=== PATIENT | female | born 1950 | race Caucasian/White ===

== ENCOUNTER → 2016-04-28 | Outpatient (CLI) | payer MEDICARE, BC ==
--- NOTE | 2016-04-28 14:27 | MM ---
Reason for exam: follow-up at short interval from prior study. Last mammogram was performed 8 months ago. History: Patient is postmenopausal and had first child at age 32. Family history of breast cancer in aunt. Reductions of both breasts, 2011. Stereotactic core biopsy of the right breast, March 05, 2001. Took hormonal contraceptives for 1 year. Physical Findings: Nurse did not find any significant physical abnormalities on exam. MG 3D Diag Mammo W/Cad RT CC and MLO view(s) were taken of the right breast. Prior study comparison: September 10, 2015, bilateral MG 3d screening mammo w/cad. June 29, 2011, bilateral digital screening mammo w/CAD. June 10, 2009, bilateral digital screening mammogram. There are scattered fibroglandular densities. Post mammoplasty changes. Some areas of non calcified oil cyst formation are demonstrated with course calcifications probably relating to fat necrosis, unchanged. Additional follow up recommended. These results were verbally communicated with the patient and result sheet given to the patient on 04/28/16. ASSESSMENT: Probably benign, BI-RAD 3 RECOMMENDATION: Follow-up diagnostic mammogram of both breasts in 6 months. Back on schedule.
== END | disposition home or self-care (01) ==
LOC: RADMAMWWP 13:40
PROVIDERS: ATTEND Obstetrics & Gynecology
DX: R92.8 Other abnormal and inconclusive findings on diagnostic imaging of breast (principal)
CPT/HCPCS: G0206; G0279

== ENCOUNTER → 2019-12-09 | Outpatient (CLI) | payer MEDICARE ==
--- NOTE | 2019-12-09 14:58 | BD ---
EXAMINATION TYPE: Axial Bone Density DATE OF EXAM: 12/09/2019 COMPARISON: DEXA bone scan 2015 CLINICAL HISTORY: Postmenopausal female Height: 5 FT 2 IN Weight: 143 FRAX RISK QUESTIONS: Alcohol (3 or more units per day): NO Family History (Parent hip fracture): NO Glucocorticoids (More than 3mos): NO (Ex: prednisone, prednisolone, methylprednisolone, dexamethasone, and hydrocortisone). History of Fracture in Adulthood: YES Secondary Osteoporosis: 1. Type 1 Diabetes: NO 2. Hyperthyroidism: NO 3. Menopause before 45: NO 4. Malnutrition: NO 5. Chronic liver disease: NO Rheumatoid Arthritis: YES Current Tobacco Use: NO RISK FACTORS HISTORY OF: History of Wrist Fracture: ANIL WRISTS When: UNSURE WHEN Surgery to Spine/Hip(right/left)/Wrist (right/left): LEFT WRIST When: UNSURE WHEN Family History of Osteoporosis: NO Active: NO Postmenopausal woman: AGE 49 MEDICATIONS Additional Medications: NONE Additional History: EXAM MEASUREMENTS: Bone mineral densitometry was performed using the [employer]. Bone mineral density as measured about the Lumbar spine is: ----- L1-L4(G/cm2): 1.027 T Score Values are as follows: ----- L2: -1.4 ----- L3: -0.8 ----- L4: -1.5 ----- L1-L4: -1.3 Bone mineral density has: DECREASED -3.3 % since study of: 2015 Bone mineral density about the R hip (g/cm2): 0.636 Bone mineral density about the L hip (g/cm2): 0.638 T Score values are as follows: -----R Neck: -2.9 -----L Neck: -2.9 -----R Total: -3.1 -----L Total: -2.7 Bone mineral density has: DECREASED -6.1 % since study of: 2015 IMPRESSION: Osteoporosis (T Score less than -2.5) remains present in both hips. There remains increased fracture risk and therapy is usually indicated based on age. Re-Screen 1-2 years. NOTE: T-SCORE=SD OF THE YOUNG ADULT MEAN.
--- NOTE | 2019-12-11 11:11 | MM ---
Reason for exam: screening (asymptomatic). Last mammogram was performed 3 years and 7 months ago. History: Patient is postmenopausal and had first child at age 32. Family history of breast cancer in aunt. Reductions of both breasts, 2011. Stereotactic core biopsy of the right breast, March 05, 2001. Took hormonal contraceptives for 1 year. Physical Findings: A clinical breast exam by your physician is recommended on an annual basis and results should be correlated with mammographic findings. MG 3D Screening Mammo W/Cad Bilateral CC and MLO view(s) were taken. Prior study comparison: April 28, 2016, right breast MG 3d diag mammo w/cad RT. September 10, 2015, bilateral MG 3d screening mammo w/cad. There are scattered fibroglandular densities. There is chronic nodularity in the right breast at 12 o'clock. Stable medial bilateral oil cysts. 12 o'clock grouped calcifications are unchanged. No significant changes when compared with prior studies. ASSESSMENT: Benign, BI-RAD 2 RECOMMENDATION: Routine screening mammogram of both breasts in 1 year.
== END | disposition home or self-care (01) ==
LOC: RADMAMWWP 12:50
PROVIDERS: ATTEND Obstetrics & Gynecology
DX: Z12.31 Encounter for screening mammogram for malignant neoplasm of breast (principal); M81.0 Age-related osteoporosis without current pathological fracture
CPT/HCPCS: 77063; 77067; 77080

== ENCOUNTER 2023-07-15 15:28 | Inpatient (IN) | payer MEDICARE ==
--- NOTE | 2023-07-15 15:45 | ED ---
Weakness HPI - General Chief complaint: Weakness Stated complaint: Weakness Time Seen by Provider: 07/15/23 15:30 Source: patient, EMS Mode of arrival: EMS - History of Present Illness Initial comments: 72-year-old female who presents to the emergency department with generalized weakness. States that she had a "fall" a couple of weeks ago. She spent a few days on the ground as she was unable to get up. States that eventually her son came to check on her and he was able to get her up in bed. He wanted to take her to be evaluated however the patient refused. States that she has been weak since this incident happened. She has been unable to get out of bed. She has been complaining of mid back pain which is reproducible upon movement. She called her primary care who sent in a muscle relaxer. Patient has been taking Flexeril. She denies having any chest pain or shortness of breath. She has no cardiac history. Denies any swelling in her lower extremities. No fevers, chills or cough. Denies hitting her head with the fall. Has not had any new falls. Today a family friend convinced her to come into the hospital. She has not been getting up out of bed due to the pain in her back. no other alleviating, precipitating or modifying factors - Related Data Home Medications Medication Instructions Recorded Confirmed Cyclobenzaprine [Flexeril] 5 mg PO TID PRN 07/15/23 07/15/23 Metoprolol Succinate (ER) [Toprol 25 mg PO DAILY 07/15/23 07/15/23 Xl] Sertraline [Zoloft] 50 mg PO DAILY 07/15/23 07/15/23 Allergies Allergy/AdvReac Type Severity Reaction Status Date / Time No Known Allergies Allergy Verified 07/15/23 16:34 Review of Systems ROS Statement: Those systems with pertinent positive or pertinent negative responses have been documented in the HPI. ROS Other: All systems not noted in ROS Statement are negative. Past Medical History Past Medical History: GERD/Reflux, Hypertension History of Any Multi-Drug Resistant Organisms: None Reported Past Surgical History: Orthopedic Surgery Additional Past Surgical History / Comment(s): biopsy/ankle & knee Past Psychological History: No Psychological Hx Reported Past Alcohol Use History: None Reported General Exam General appearance: alert, in no apparent distress Head exam: Present: atraumatic, normocephalic, normal inspection Eye exam: Present: normal appearance, PERRL, EOMI. Absent: scleral icterus, conjunctival injection, periorbital swelling ENT exam: Present: normal exam, mucous membranes moist Neck exam: Present: normal inspection. Absent: tenderness, meningismus, lymphadenopathy Respiratory exam: Present: normal lung sounds bilaterally. Absent: respiratory distress, wheezes, rales, rhonchi, stridor Cardiovascular Exam: Present: regular rate, normal rhythm, normal heart sounds. Absent: systolic murmur, diastolic murmur, rubs, gallop, clicks GI/Abdominal exam: Present: soft, normal bowel sounds. Absent: distended, tenderness, guarding, rebound, rigid Extremities exam: Present: normal inspection, full ROM, normal capillary refill. Absent: tenderness, pedal edema, joint swelling, calf tenderness Back exam: Present: paraspinal tenderness, vertebral tenderness (T10-L4) Neurological exam: Present: alert, oriented X3, CN II-XII intact Psychiatric exam: Present: normal affect, normal mood Skin exam: Present: warm, dry, intact, normal color. Absent: rash Course Vital Signs 07/15/23 07/15/23 07/15/23 15:29 16:38 16:46 Temperature 97.3 F L Pulse Rate 104 H 83 Respiratory 18 16 Rate Blood Pressure 126/97 113/59 O2 Sat by Pulse 96 100 Oximetry Fraction of 100 Inspired Oxygen (FIO2) 07/15/23 07/15/23 07/15/23 16:52 17:24 19:28 Temperature Pulse Rate Respiratory Rate Blood Pressure O2 Sat by Pulse Oximetry Fraction of 100 50 50 Inspired Oxygen (FIO2) 07/15/23 20:11 Temperature Pulse Rate 79 Respiratory 20 Rate Blood Pressure 137/75 O2 Sat by Pulse 95 Oximetry Fraction of Inspired Oxygen (FIO2) Procedures - Intubation Sedative: Etomidate Mg Given: 20 Paralytic: Rocuronium Mg Given: 50 Laryngoscope: Amrit Size: 3 ET Tube Size: 7.5 ET Tube Uncuffed: No Tube Secured Depth (cm): 22 Tube Secured Location: lips Tube Placement Confirmation: visualized tube passing through cords, equal breath sounds bilaterally, no breath sounds over epigastrium, confirmation by capnometry Patient Tolerated Procedure: well, no complications Medical Decision Making - Medical Decision Making Was pt. sent in by a medical professional or institution (Dr., PA, TROLLEY WORKER, urgent care, hospital, or group home...) When possible be specific @ -No Did you speak to anyone other than the patient for history (EMS, parent, family, police, friend...)? What history was obtained from this source @ -Spoke with EMS, son and family friend for history Did you review nursing and triage notes (agree or disagree)? Why? @ -I reviewed and agree with nursing and triage notes Were old charts reviewed (outside hosp., previous admission, EMS record, old EKG, old radiological studies, urgent care reports/EKG's, group home records)? Report findings @ -No old charts were reviewed Differential Diagnosis (chest pain, altered mental status, abdominal pain women, abdominal pain men, vaginal bleeding, weakness, fever, dyspnea, syncope, headache, dizziness, GI bleed, back pain, seizure, CVA, palpatations, mental health, musculoskeletal)? @ -Differential Back Pain: Strain, zoster, cauda equina syndrome, epidural abscess, vertebral osteomyelitis, discitis, fracture, subluxation, disc herniation, DJD, spinal stenosis, dissection, AAA, pancreatitis, peptic ulcer disease, pyelonephritis, kidney stone, this is not meant to be an all-inclusive list. Differential Weakness: Hypoglycemia, shock, sepsis, hyponatremia, anemia, infection, AL, ETOH, adverse medicine reaction, overdose, stroke, this is not meant to be an all-inclusive list. EKG interpreted by me (3pts min.). @ -Yes and demonstrates A-fib with a rate of 136. QRS 98. QTc of 323. ST minda vation in aVR. Diffuse ST depression 2, 3, aVF as well as V2 through V6 Repeat EKG at 1601 demonstrates possible sinus tach with a rate of 112. QRS 138. QTc of 422 Additional EKG at 1612 demonstrates sinus rhythm with a rate of 78. IL interval 152. QRS 110. QTc of 472 X-rays interpreted by me (1pt min.). @ -Yes after patient was intubated which showed appropriate lines CT interpreted by me (1pt min.). @ -CT of the brain demonstrated no edema U/S interpreted by me (1pt. min.). @ -None done What testing was considered but not performed or refused? (CT, X-rays, U/S, labs)? Why? @ -None What meds were considered but not given or refused? Why? @ -None Did you discuss the management of the patient with other professionals (professionals i.e. Dr., PA, TROLLEY WORKER, lab, RT, psych nurse, school social worker, insurance territory manager, teacher, air antisubmarine officer, corrections caseworker)? Give summary @ -Spoke with Dr. Chris on multiple occasions. Also spoke with [facility] for admission Was smoking cessation discussed for >3mins.? @ -No Was critical care preformed (if so, how long)? @ -Yes, 50 minutes for management of vent, status postcardiac arrest, multiple conversation with Dr. Chris and eventual transfer the patient to the [facility] Were there social determinants of health that impacted care today? How? (Homelessness, low income, unemployed, alcoholism, drug addiction, transportation, low edu. Level, literacy, decrease access to med. care, longterm, rehab)? @ -No Was there de-escalation of care discussed even if they declined (Discuss DNR or withdrawal of care, Hospice)? DNR status @ -Yes and son wants full care for the patient What co-morbidities impacted this encounter? (DM, HTN, Smoking, COPD, CAD, Cancer, CVA, ARF, Chemo, Hep., AIDS, mental health diagnosis, sleep apnea, morbid obesity)? @ -None Was patient admitted / discharged? Hospital course, mention meds given and route, prescriptions, significant lab abnormalities, going to OR and other pertinent info. @ -Upon arrival patient was placed into room 2. A thorough history and physical exam was performed. Patient reports to mid low back pain with pa lpation. Patient is placed on continuous pulse ox and cardiac monitoring. Twelve-lead EKG was obtained which demonstrates new onset A-fib with a rapid rate. There is aVR elevation and diffuse ST depression in inferior and anterior lateral leads. I did place orders. IV was established and labs were sent. I am promptly called back to the room as the nurse feels that the patient is having a seizure. Patient remains on the case monitor and it does demonstrate V-fib with a torsades morphology. Because of this CPR is initiated. Patient is placed on the ZOLL monitor. She was given 1 epinephrine, 2 g of magnesium and defibrillated at 120 J. Simultaneously the patient was given 20 mg of etomidate, 50 mg of rocuronium and intubated with a 7-1/2 ET tube. We do have return of pulses. Patient is then transferred to trauma bay 1. She receives 150 mg of amiodarone because of her V-fib arrest with pulses back at this time. Total downtime was 6 minutes. Repeat EKG was performed and patient is in a normal sinus rhythm at this time. Nursing staff does place a Peterson and OG tube. Portable chest x-ray was performed which demonstrated adequate placement of the tubes. I did call Dr. Ruiz to notify him of the patient. He does present to the emergency department to evaluate the patient. Laboratory studies do return and D-dimer is elevated. Patient goes over for CT of her brain as well as CT of her chest to rule out PE prior to heart cath. CT is negative. Dr. Chris is agreeable to taking patient to the [facility] at this time. Patient will be admitted to [facility]. Patient's son is at bedside and is updated in regards to laboratory studies, imaging and plan for heart cath. He was agreeable to all provided care. Patient taken to the [facility] in stable condition. She had been on a propofol drip for sedation. Upon transport upstairs the patient does make purposeful movements. Undiagnosed new problem with uncertain prognosis? @ -Yes Drug Therapy requiring intensive monitoring for toxicity (Heparin, Nitro, Insulin, Cardizem)? @ -No Were any procedures done? @ -Intubation, CPR Diagnosis/symptom? @ -Acute V-fib arrest - torsades, vent dependence, new onset afib, acute UTI Acute, or Chronic, or Acute on Chronic? @ -Acute Uncomplicated (without systemic symptoms) or Complicated (systemic symptoms)? @ -Complicated Side effects of treatment? @ -No Exacerbation, Progression, or Severe Exacerbation? @ -No Poses a threat to life or bodily function? How? (Chest pain, USA, AL, pneumonia, PE, COPD, DKA, ARF, appy, cholecystitis, CVA, Diverticulitis, Homicidal, Tiffany cidal, threat to staff... and all critical care pts) @ -Yes, patient suffered cardiac arrest - Lab Data Result diagrams: 07/20/23 09:40 07/20/23 09:40 Lab Results 07/15/23 07/15/23 07/15/23 Range/Units 15:44 15:44 15:44 WBC 8.1 (3.8-10.6) k/uL RBC 2.64 L (3.80-5.40) m/uL Hgb 7.2 L (11.4-16.0) gm/dL Hct 22.7 L (34.0-46.0) % MCV 85.8 (80.0-100.0) fL MCH 27.3 (25.0-35.0) pg MCHC 31.8 (31.0-37.0) g/dL RDW 13.2 (11.5-15.5) % Plt Count 435 (150-450) k/uL MPV 7.4 Neutrophils % 74 % Lymphocytes % 18 % Monocytes % 5 % Eosinophils % 2 % Basophils % 0 % Neutrophils # 6.0 (1.3-7.7) k/uL Lymphocytes # 1.4 (1.0-4.8) k/uL Monocytes # 0.4 (0-1.0) k/uL Eosinophils # 0.2 (0-0.7) k/uL Basophils # 0.0 (0-0.2) k/uL Hypochromasia Moderate Poikilocytosis Slight PT 10.6 (10.0-12.5) sec INR 1.0 (<1.2) APTT 22.2 (22.0-30.0) sec D-Dimer (<0.60) mg/L FEU Sample Site ABG pH (7.35-7.45) ABG pCO2 (35-45) mmHg ABG pO2 (83-108) mmHg ABG HCO3 (21-25) mmol/L ABG Total CO2 (19-24) mmol/L ABG O2 Saturation (94-97) % ABG Base Excess mmol/L Hu Test FiO2 % Sodium 133 L (137-145) mmol/L Potassium 3.4 L (3.5-5.1) mmol/L Chloride 107 (98-107) mmol/L Carbon Dioxide 17 L (22-30) mmol/L Anion Gap 9 mmol/L BUN 21 H (7-17) mg/dL Creatinine 0.72 (0.52-1.04) mg/dL Est GFR (CKD-EPI)AfAm >90 (>60 ml/min/1.73 sqM) Est GFR (CKD-EPI)NonAf 84 (>60 ml/min/1.73 sqM) Glucose 123 H (74-99) mg/dL POC Glucose (mg/dL) (70-110) mg/dL POC Glu Enrober ID Lactic Ac Sepsis Rflx Plasma Lactic Acid [place] (0.7-2.0) mmol/L Calcium 10.1 (8.4-10.2) mg/dL Magnesium 1.7 (1.6-2.3) mg/dL Total Bilirubin 0.3 (0.2-1.3) mg/dL AST 23 (14-36) U/L ALT 18 (4-34) U/L Alkaline Phosphatase 117 (38-126) U/L Creatine Kinase 30 (30-135) U/L Troponin I (0.000-0.034) ng/mL NT-Pro-B Natriuret Pep 1520 pg/mL Total Protein 5.5 L (6.3-8.2) g/dL Albumin 2.7 L (3.5-5.0) g/dL TSH 1.590 (0.465-4.680) mIU/L Urine Color Urine Appearance (Clear) Urine pH (5.0-8.0) Ur Specific [place] (1.001-1.035) Urine Protein (Negative) Urine Glucose (UA) (Negative) Urine Ketones (Negative) Urine Blood (Negative) Urine Nitrite (Negative) Urine Bilirubin (Negative) Urine Urobilinogen (<2.0) mg/dL Ur Leukocyte Esterase (Negative) Urine RBC (0-5) /hpf Urine WBC (0-5) /hpf Ur Squamous Epith Cells (0-4) /hpf Urine Bacteria (None) /hpf Hyaline Casts (0-2) /lpf Urine Mucus (None) /hpf Influenza Type A (PCR) (Not Detectd) Influenza Type B (PCR) (Not Detectd) RSV (PCR) (Not Detectd) SARS-CoV-2 (PCR) (Not Detectd) 07/15/23 07/15/23 07/15/23 Range/Units 15:44 15:44 15:44 WBC (3.8-10.6) k/uL RBC (3.80-5.40) m/uL Hgb (11.4-16.0) gm/dL Hct (34.0-46.0) % MCV (80.0-100.0) fL MCH (25.0-35.0) pg MCHC (31.0-37.0) g/dL RDW (11.5-15.5) % Plt Count (150-450) k/uL MPV Neutrophils % % Lymphocytes % % Monocytes % % Eosinophils % % Basophils % % Neutrophils # (1.3-7.7) k/uL Lymphocytes # (1.0-4.8) k/uL Monocytes # (0-1.0) k/uL Eosinophils # (0-0.7) k/uL Basophils # (0-0.2) k/uL Hypochromasia Poikilocytosis PT (10.0-12.5) sec INR (<1.2) APTT (22.0-30.0) sec D-Dimer 1.97 H (<0.60) mg/L FEU Sample Site ABG pH (7.35-7.45) ABG pCO2 (35-45) mmHg ABG pO2 (83-108) mmHg ABG HCO3 (21-25) mmol/L ABG Total CO2 (19-24) mmol/L ABG O2 Saturation (94-97) % ABG Base Excess mmol/L Hu Test FiO2 % Sodium (137-145) mmol/L Potassium (3.5-5.1) mmol/L Chloride (98-107) mmol/L Carbon Dioxide (22-30) mmol/L Anion Gap mmol/L BUN (7-17) mg/dL Creatinine (0.52-1.04) mg/dL Est GFR (CKD-EPI)AfAm (>60 ml/min/1.73 sqM) Est GFR (CKD-EPI)NonAf (>60 ml/min/1.73 sqM) Glucose (74-99) mg/dL POC Glucose (mg/dL) (70-110) mg/dL POC Glu Enrober ID Lactic Ac Sepsis Rflx Plasma Lactic Acid [place] 3.6 H* (0.7-2.0) mmol/L Calcium (8.4-10.2) mg/dL Magnesium (1.6-2.3) mg/dL Total Bilirubin (0.2-1.3) mg/dL AST (14-36) U/L ALT (4-34) U/L Alkaline Phosphatase (38-126) U/L Creatine Kinase (30-135) U/L Troponin I 0.079 H* (0.000-0.034) ng/mL NT-Pro-B Natriuret Pep pg/mL Total Protein (6.3-8.2) g/dL Albumin (3.5-5.0) g/dL TSH (0.465-4.680) mIU/L Urine Color Urine Appearance (Clear) Urine pH (5.0-8.0) Ur Specific [place] (1.001-1.035) Urine Protein (Negative) Urine Glucose (UA) (Negative) Urine Ketones (Negative) Urine Blood (Negative) Urine Nitrite (Negative) Urine Bilirubin (Negative) Urine Urobilinogen (<2.0) mg/dL Ur Leukocyte Esterase (Negative) Urine RBC (0-5) /hpf Urine WBC (0-5) /hpf Ur Squamous Epith Cells (0-4) /hpf Urine Bacteria (None) /hpf Hyaline Casts (0-2) /lpf Urine Mucus (None) /hpf Influenza Type A (PCR) (Not Detectd) Influenza Type B (PCR) (Not Detectd) RSV (PCR) (Not Detectd) SARS-CoV-2 (PCR) (Not Detectd) 07/15/23 07/15/23 07/15/23 Range/Units 16:00 16:23 16:25 WBC (3.8-10.6) k/uL RBC (3.80-5.40) m/uL Hgb (11.4-16.0) gm/dL Hct (34.0-46.0) % MCV (80.0-100.0) fL MCH (25.0-35.0) pg MCHC (31.0-37.0) g/dL RDW (11.5-15.5) % Plt Count (150-450) k/uL MPV Neutrophils % % Lymphocytes % % Monocytes % % Eosinophils % % Basophils % % Neutrophils # (1.3-7.7) k/uL Lymphocytes # (1.0-4.8) k/uL Monocytes # (0-1.0) k/uL Eosinophils # (0-0.7) k/uL Basophils # (0-0.2) k/uL Hypochromasia Poikilocytosis PT (10.0-12.5) sec INR (<1.2) APTT (22.0-30.0) sec D-Dimer (<0.60) mg/L FEU Sample Site ABG pH (7.35-7.45) ABG pCO2 (35-45) mmHg ABG pO2 (83-108) mmHg ABG HCO3 (21-25) mmol/L ABG Total CO2 (19-24) mmol/L ABG O2 Saturation (94-97) % ABG Base Excess mmol/L Hu Test FiO2 % Sodium (137-145) mmol/L Potassium (3.5-5.1) mmol/L Chloride (98-107) mmol/L Carbon Dioxide (22-30) mmol/L Anion Gap mmol/L BUN (7-17) mg/dL Creatinine (0.52-1.04) mg/dL Est GFR (CKD-EPI)AfAm (>60 ml/min/1.73 sqM) Est GFR (CKD-EPI)NonAf (>60 ml/min/1.73 sqM) Glucose (74-99) mg/dL POC Glucose (mg/dL) 101 (70-110) mg/dL POC Glu Enrober ID Yudi Easton Lactic Ac Sepsis Rflx Plasma Lactic Acid [place] (0.7-2.0) mmol/L Calcium (8.4-10.2) mg/dL Magnesium (1.6-2.3) mg/dL Total Bilirubin (0.2-1.3) mg/dL AST (14-36) U/L ALT (4-34) U/L Alkaline Phosphatase (38-126) U/L Creatine Kinase (30-135) U/L Troponin I (0.000-0.034) ng/mL NT-Pro-B Natriuret Pep pg/mL Total Protein (6.3-8.2) g/dL Albumin (3.5-5.0) g/dL TSH (0.465-4.680) mIU/L Urine Color Colorless Urine Appearance Cloudy H (Clear) Urine pH 6.5 (5.0-8.0) Ur Specific [place] 1.007 (1.001-1.035) Urine Protein 1+ H (Negative) Urine Glucose (UA) Negative (Negative) Urine Ketones Negative (Negative) Urine Blood Negative (Negative) Urine Nitrite Negative (Negative) Urine Bilirubin Negative (Negative) Urine Urobilinogen <2.0 (<2.0) mg/dL Ur Leukocyte Esterase Moderate H (Negative) Urine RBC 3 (0-5) /hpf Urine WBC 28 H (0-5) /hpf Ur Squamous Epith Cells 1 (0-4) /hpf Urine Bacteria Moderate H (None) /hpf Hyaline Casts 1 (0-2) /lpf Urine Mucus Rare H (None) /hpf Influenza Type A (PCR) Not Detected (Not Detectd) Influenza Type B (PCR) Not Detected (Not Detectd) RSV (PCR) Not Detected (Not Detectd) SARS-CoV-2 (PCR) Not Detected (Not Detectd) 07/15/23 07/15/23 Range/Units 17:02 17:13 WBC (3.8-10.6) k/uL RBC (3.80-5.40) m/uL Hgb (11.4-16.0) gm/dL Hct (34.0-46.0) % MCV (80.0-100.0) fL MCH (25.0-35.0) pg MCHC (31.0-37.0) g/dL RDW (11.5-15.5) % Plt Count (150-450) k/uL MPV Neutrophils % % Lymphocytes % % Monocytes % % Eosinophils % % Basophils % % Neutrophils # (1.3-7.7) k/uL Lymphocytes # (1.0-4.8) k/uL Monocytes # (0-1.0) k/uL Eosinophils # (0-0.7) k/uL Basophils # (0-0.2) k/uL Hypochromasia Poikilocytosis PT (10.0-12.5) sec INR (<1.2) APTT (22.0-30.0) sec D-Dimer (<0.60) mg/L FEU Sample Site Right Radial ABG pH 7.25 L (7.35-7.45) ABG pCO2 37 (35-45) mmHg ABG pO2 312 H (83-108) mmHg ABG HCO3 16 L (21-25) mmol/L ABG Total CO2 17 L (19-24) mmol/L ABG O2 Saturation 100.0 H (94-97) % ABG Base Excess -11.3 mmol/L Hu Test Yes FiO2 100 % Sodium (137-145) mmol/L Potassium (3.5-5.1) mmol/L Chloride (98-107) mmol/L Carbon Dioxide (22-30) mmol/L Anion Gap mmol/L BUN (7-17) mg/dL Creatinine (0.52-1.04) mg/dL Est GFR (CKD-EPI)AfAm (>60 ml/min/1.73 sqM) Est GFR (CKD-EPI)NonAf (>60 ml/min/1.73 sqM) Glucose (74-99) mg/dL POC Glucose (mg/dL) (70-110) mg/dL POC Glu Enrober ID Lactic Ac Sepsis Rflx Y Plasma Lactic Acid [place] (0.7-2.0) mmol/L Calcium (8.4-10.2) mg/dL Magnesium (1.6-2.3) mg/dL Total Bilirubin (0.2-1.3) mg/dL AST (14-36) U/L ALT (4-34) U/L Alkaline Phosphatase (38-126) U/L Creatine Kinase (30-135) U/L Troponin I (0.000-0.034) ng/mL NT-Pro-B Natriuret Pep pg/mL Total Protein (6.3-8.2) g/dL Albumin (3.5-5.0) g/dL TSH (0.465-4.680) mIU/L Urine Color Urine Appearance (Clear) Urine pH (5.0-8.0) Ur Specific [place] (1.001-1.035) Urine Protein (Negative) Urine Glucose (UA) (Negative) Urine Ketones (Negative) Urine Blood (Negative) Urine Nitrite (Negative) Urine Bilirubin (Negative) Urine Urobilinogen (<2.0) mg/dL Ur Leukocyte Esterase (Negative) Urine RBC (0-5) /hpf Urine WBC (0-5) /hpf Ur Squamous Epith Cells (0-4) /hpf Urine Bacteria (None) /hpf Hyaline Casts (0-2) /lpf Urine Mucus (None) /hpf Influenza Type A (PCR) (Not Detectd) Influenza Type B (PCR) (Not Detectd) RSV (PCR) (Not Detectd) SARS-CoV-2 (PCR) (Not Detectd) Disposition Clinical Impression: Ventricular fibrillation, Atrial fibrillation, Ventilator dependence, Abnormal EKG, NSTEMI (non-ST elevated myocardial infarction), Lactic acid acidosis Disposition: ADMITTED IP TO THIS HOSP Condition: Critical Is patient prescribed a controlled substance at d/c from ED?: No Time of Disposition: 18:32 Decision to Admit Reason: Admit from EC Decision Date: 07/15/23 Decision Time: 18:32
[2023-07-15] MEDS: DEXTROSE 5% IN WATER 100 ML with AMIODARONE 150 MG IV ONE (15:59)
[2023-07-15] MEDS: ETOMIDATE 2 MG/ML 10 ML VIAL IVP STA (16:00)
[2023-07-15] MEDS: ROCURONIUM 10 MG/ML (5 ML VIAL) IV STA (16:01)
[2023-07-15 16:02] LABS: Glucose,Whole Blood 101 mg/dL (70-110)
[2023-07-15] MEDS: MAGNESIUM SULFATE-D5W PMX 1 GM in DEXTROSE/WATER 1 100ML.BAG IVPB SCH (16:02)
[2023-07-15 16:25] LABS: Basophils % (A) 0 %; Eosinophils # (A) 0.2 k/uL (0-0.7); Eosinophils % (A) 2 %; HCT 22.7 % (34.0-46.0); HGB 7.2 gm/dL (11.4-16.0); Hypochromasia Moderate; Lymphocytes # (A) 1.4 k/uL (1.0-4.8); Lymphocytes % (A) 18 %; MCH 27.3 pg (25.0-35.0); MCHC 31.8 g/dL (31.0-37.0); MCV 85.8 fL (80.0-100.0); Mean Platelet Volume 7.4; Monocytes # (A) 0.4 k/uL (0-1.0); Monocytes % (A) 5 %; Neutrophils % (A) 74 %; Platelet Count 435 k/uL (150-450); Poikilocytosis Slight; RBC 2.64 m/uL (3.80-5.40); RDW 13.2 % (11.5-15.5); WBC 8.1 k/uL (3.8-10.6)
[2023-07-15 16:39] LABS: ALT 18 U/L (4-34); AST 23 U/L (14-36); African American GFR (CKD) >90 (>60 ml/min/1.73 sqM); Albumin 2.7 g/dL (3.5-5.0); Alkaline Phosphatase 117 U/L (38-126); Anion Gap 9 mmol/L; Blood Urea Nitrogen 21 mg/dL (7-17); Calcium 10.1 mg/dL (8.4-10.2); Carbon Dioxide 17 mmol/L (22-30); Chloride 107 mmol/L (98-107); Creatine Kinase 30 U/L (30-135); Glucose 123 mg/dL (74-99); Magnesium 1.7 mg/dL (1.6-2.3); Non-African American GFR(CKD) 84 (>60 ml/min/1.73 sqM); Sodium 133 mmol/L (137-145); Total Bilirubin 0.3 mg/dL (0.2-1.3); Total Protein 5.5 g/dL (6.3-8.2)
[2023-07-15 16:45] LABS: NT-Pro-B-Type Natriuretic Pept 1520 pg/mL
[2023-07-15 16:46] LABS: Appearance,Urine Cloudy (Clear); Bacteria,Urine Moderate /hpf; Bilirubin,Urine Negative (Negative); Blood,Urine Negative (Negative); Color,Urine Colorless; Glucose,Urine (UA) Negative (Negative); Hyaline Casts,Urine 1 /lpf (0-2); Ketones,Urine Negative (Negative); Leukocyte Esterase,Urine Moderate (Negative); Mucus,Urine Rare /hpf; Nitrite,Urine Negative (Negative); PH, Urine 6.5 (5.0-8.0); Protein,Urine 1+ (Negative); RBC,Urine 3 /hpf (0-5); Specific Gravity,Urine 1.007 (1.001-1.035); Squamous Epithelial Cell,Urine 1 /hpf (0-4); Urobilinogen,Urine <2.0 mg/dL (<2.0); WBC,Urine 28 /hpf (0-5)
[2023-07-15] MEDS: SODIUM CHLORIDE 0.9% 1,000 ML IV STA (16:47)
[2023-07-15 16:53] LABS: Partial Thromboplastin Time 22.2 sec (22.0-30.0); Prothrombin Time 10.6 sec (10.0-12.5)
[2023-07-15 17:12] LABS: ABG Base Excess -11.3 mmol/L; ABG HCO3 16 mmol/L (21-25); ABG PCO2 37 mmHg (35-45); ABG PH 7.25 (7.35-7.45); ABG PO2 312 mmHg (83-108); ABG TCO2 17 mmol/L (19-24); Allen Test Performed? Yes
[2023-07-15 17:14] LABS: Potassium 3.4 mmol/L (3.5-5.1)
--- NOTE | 2023-07-15 17:15 | XR ---
EXAM: XR chest 1V portable CLINICAL INDICATION:Female, 72 years old with history of intubation; [facility] COMPARISON: None. TECHNIQUE: Chest single view. FINDINGS: Lines/tubes/devices: ET tube tip about 2.8 cm above the lokesh. NG tube extends into the left abdomen , curving and following the course of a mildly gas-distended stomach. Tip is beyond the [id number] but the sidehole is seen over the proximal gastric body. Position is satisfactory. EKG leads and oxygen tubing over the chest. Cardiomediastinum: Cardiac silhouette appears mildly to moderately enlarged. Mediastinal contours are unremarkable. Mildly tortuous aorta with some atherosclerotic calcification. Vasculature: No increased pulmonary vasculature. Lungs/pleura: Scattered chronic senescent changes in the lungs. No consolidation, sizeable effusion, or visible pne umothorax. Bones/soft tissues: Bony thorax appears grossly intact as seen. Regional soft tissues appear unremarkable. IMPRESSION: 1. Lines and tubes in place as above. 2. No acute cardiopulmonary abnormality.
[2023-07-15] MEDS: SODIUM CHLORIDE 0.9% 1,000 ML IV ONE (18:30)
[2023-07-15] MEDS: SODIUM CHLORIDE 0.9% 1,000 ML IV SCH (18:30)
[2023-07-15] MEDS ORDERED: NALOXONE 0.4 MG/ML 1 ML VIAL IV PRN (18:32)
--- NOTE | 2023-07-15 18:34 | CT ---
EXAMINATION TYPE: CT brain wo con CT DLP: Combined DLP of 2851.9 mGycm, Automated exposure control for dose reduction was used. DATE OF EXAM: 07/15/2023 6:26 PM COMPARISON: None. CLINICAL INDICATION:Female, 72 years old with history of arrest, Weakness dizziness. Fall. Laid on gr ound for a few days before getting help. TECHNIQUE: Brain: Axial CT images of the brain were obtained with coronal and sagittal reformats created and rev iewed. Contrast used: None. Oral contrast used: None. FINDINGS: Limitation by extensive streak artifacts. Extra-axial spaces: No abnormal extra-axial fluid collections. Basilar cisterns are patent. Ventricular system: Ventricles appear dilated in proportion to the degree of cerebral atrophy. Cerebral parenchyma: No increased attenuation to suggest acute intraparenchymal hemorrhage. The gra y-white matter interface appears maintained. Moderate generalized brain atrophy. Scattered hypoatte nuating areas are seen within the cerebral white matter, nonspecific but most often seen with chronic microvascular ischemic changes; moderate in degree. Cerebellum: No acute abnormality. Mass effect: No evidence of mass effect or midline shift. Intracranial vasculature: Atherosclerotic calcifications of the larger arteries near the skull base. Soft tissues: No acute or concerning abnormality. Visualized orbits: Orbital contents appear grossly intact. Calvarium/osseous structures: No evidence of calvarial fracture. Degenerative changes of the TMJs. Paranasal sinuses and mastoid air cells: Clear. Other: Partially visualized endotracheal tube and oral enteric tube. IMPRESSION: 1. No CT evidence of an acute intracranial abnormality. 2. Atrophy and chronic microvascular ischemic white matter changes.
[2023-07-15] MEDS: cefTRIAXone IN SWFI 1,000 MG/10 ML SYRINGE IVP STA (18:45)
--- NOTE | 2023-07-15 18:56 | CT ---
EXAMINATION TYPE: CT chest angio for PE CT DLP: 2851.9 mGycm, Automated exposure control for dose reduction was used. DATE OF EXAM: 07/15/2023 6:24 PM COMPARISON: Same day chest x-ray CLINICAL INDICATION:Female, 72 years old with history of arrest; Weakness dizziness. Fall. Laid on gr ound for a few days before getting help. TECHNIQUE/CONTRAST: CTA scan of the thorax is performed with IV Contrast, patient injected with 100 ml mL of Isovue 370, MIP images are created and reviewed these are created on a separate workstation.. FINDINGS: LINES/TUBES: ET tube tip above the lokesh in good position. Oral enteric tube extends into the abdom en with its tip in the distal stomach. There is adequate contrast bolus and timing. PULMONARY ARTERIES: Pulmonary trunk is normal in size. Trunk measures 2.8 CM. Normal enhancement of the bilateral pulmonary arterial trees, without evidence of filling defect to suggest PE. AORTA: Moderate atherosclerotic calcifications of the aorta and branches. Ascending aorta is 3.3 CM, descending is 2.8 CM. HEART: Heart size upper normal. No significant appreciable coronary calcifications. No appreciable p ericardial effusion. LOWER NECK: No significant findings. Thyroid is unremarkable. MEDIASTINUM: No enlarged nodes by CT size criteria. SOFT TISSUES/AXILLA: Unremarkable soft tissues. No axillary adenopathy. LUNGS/ PLEURA: Bibasilar opacities likely combination of atelectasis and consolidations. Mild scarrin g/atelectatic changes throughout the aerated lungs. Possible trace pleural effusions. No evidence of pneumothorax. AIRWAY: Small to moderate globular secretion noted in the trachea just beyond the tip of the ET tube. Central airways are otherwise patent. MUSCULOSKELETAL: Mild/moderate degenerative changes throughout the spine. Mild superior endplate he ight loss T2, T4, T5 favored to be chronic without acute fracture lucency seen. There is mild to mode rate loss of height with anterior wedging L1, with lucency deep to the endplate and a small area of r etropulsion into the canal at the posterior superior aspect of the vertebral body, favored to be acut e/subacute. UPPER ABDOMEN: Mildly enlarged gastrohepatic ligament node, 1.25 cm in short axis , nonspecific. The re is a presumed splenule adjacent to the spleen. Tiny nonobstructing calculus in the right kidney. M ild thickening and tiny nodularity of the adrenals, could relate to hyperplasia and/or adenomatoid ch ney. IMPRESSION: 1. No evidence of pulmonary embolism. 2. ET tube and oral enteric tube in good position. 3. Small to moderate globular secretion in the trachea at the tip of the ET tube. 4. Bibasilar lung opacities likely combination of atelectasis and consolidations. Mild scarring/atel ectatic changes throughout the aerated lungs. Possible trace pleural effusions. No evidence of pneumo thorax. 5. Mild to moderate loss of height with anterior wedging L1, and mild retropulsion, favored to be ac kymberly/subacute. 6. Nonspecific mildly enlarged gastrohepatic ligament node.
[2023-07-15] MEDS ORDERED: Phosphorus Replacement Protoco 1 EACH MISC MISCELLANE PRN (19:08)
[2023-07-15] MEDS ORDERED: Potassium Replacement Protocol 1 EACH MISC MISCELLANE PRN (19:08)
[2023-07-15] MEDS ORDERED: Magnesium Replacement Protocol 1 EACH MISC MISCELLANE PRN (19:08)
[2023-07-15] MEDS: IV FLUID CONTINUATION 1,000 ML IV ONE (19:55)
[2023-07-15] MEDS ORDERED: VERAPAMIL 2.5 MG/ML 2 ML AMP ONE (20:51)
[2023-07-15] MEDS ORDERED: HEPARIN SODIUM 1,000 UN/ML (10ML VL) ONE (20:51)
[2023-07-15] MEDS ORDERED: LIDOCAINE 1% INJ 10MG/ML (20 ML MDV) ONE (20:51)
[2023-07-15] MEDS: LIDOCAINE 1% INJ 10MG/ML (20 ML MDV) SQ ONE (21:00)
[2023-07-15] MEDS: MIDAZOLAM 2 MG/2 ML VIAL IVP ONE ×2 (21:03→22:01)
[2023-07-15] MEDS: HEPARIN SODIUM 1,000 UN/ML (10ML VL) IV ONE (21:19)
[2023-07-15] MEDS ORDERED: TICAGRELOR 90 MG TAB ONE ×2 (21:42→21:52)
[2023-07-15] MEDS: TICAGRELOR 90 MG TAB PO ONE (22:01)
[2023-07-15] MEDS: IOPAMIDOL-370 100ML BTL INJ ONE ×2 (22:28→22:52)
[2023-07-15] MEDS ORDERED: NITROGLYCERIN SL TABS 0.4 MG TAB SUBLINGUAL PRN (22:38)
[2023-07-15] MEDS ORDERED: RX INFO: IV CONTRAST WAS GIVEN 1 EACH MISC MISCELLANE PRN (22:38)
[2023-07-15] MEDS ORDERED: MAG HYDROX/AL HYDROX/SIMETH 30 ML CUP PO PRN (22:38)
[2023-07-15] MEDS ORDERED: ZOLPIDEM 5 MG TAB PO PRN (22:38)
[2023-07-15] MEDS ORDERED: ATROPINE SULFATE 0.1 MG/ML 10ML SYRINGE IV PRN (22:38)
--- NOTE | 2023-07-15 22:50 | P.PCN ---
Date of Procedure: 07/15/23 Operative Findings: CARDIAC CATHETERIZATION AND PERCUTANEOUS CORONARY INTERVENTION PERFORMING PHYSICIAN: Michael Ruiz MD, [facility] PROCEDURE PERFORMED: 1. Selective right and left coronary angiogram 2. Left heart catheterization 3. Successful stenting of proximal LAD using 4.0 x 12 mm Xience LUCIUS with an excellent angiographic results 4. Successful stenting of the mid RCA using 4.0 x 38 mm Xience LUCIUS with an excellent angiographic results 5. Adjunctive use of intravascular imaging (IVUS) as well as Doppler wire (IFR) 6. Attempted balloon angioplasty of the left circumflex coronary artery 7. Selective right common femoral artery angiogram and ultrasound-guided access of the right common femoral artery INDICATION: This is a 72-year-old female patient with a past medical history significant for hypertension and dyslipidemia was brought into the hospital with back discomfort. Before that she did have an episode of syncope. In the emergency department she was noted to have atrial fibrillation with rapid ventricular response but subsequently she developed cardiac arrest with ventricular fibrillation requiring shock. She was brought to normal sinus mechanism. The troponin came in to be abnormal. In the light of that she was advised to undergo a heart catheterization COMPLICATION: None APPROACH: Right common femoral artery LEVEL OF SEDATION: Moderate with the sedation time off 88 minutes PROCEDURE DESCRIPTION: After obtaining informed consent the patient was brought to the cardiac [facility]. The patient was brought intubated on ventilator. Initially we attempted to access the right radial artery but she has no right radial pulse even under ultrasound I could not visualize the right radial artery. At that point I decided to go from the right common femoral artery. The right common femoral artery was cannulated using micropuncture technique under ultrasound guidance where the micropuncture wire passed easily then I placed a 6 [place] 11 cm sheath at the right common femoral artery. At that point I did selective right and left coronary angiogram. Selective right coronary angiogram was performed using JR4 catheter and selective left coronary angiogram was performed using JL 4 catheter. After that left heart catheterization was performed using 6 [place] pigtail catheter. After reviewing the angiogram we decided to do and proceed with the PCI. At that point anticoagulation was initiated using heparin with continuous ACT monitoring. Subsequently I did engage the left main coronary artery using JL 4 guiding catheter. Attempting recanalizing the left circumflex was unsuccessful using multiple wires and support catheter and at that point I realized that the left circumflex is probably chronically occluded. At that point and before intervene on the left anterior descending artery I decided to do Dobler wire measurement of the left anterior descending artery. At that point the JL 4 catheter was disengaged from the left main coronary artery and subsequently the Doppler wire was zeroed and subsequently I did equalization/normalization between the Doppler wire and guiding catheter which was JL 4 guiding catheter. After that I did engage the left main again and I did wired the LAD using the Doppler wire. We did an IFR of the LAD and that came in to be at 0.78 and subsequently the IFR came in to be 1 when I did pullback across the lesion. I realized that the lesion is hemodynamically significant. I did intravascular ultrasound of the LAD and that showed a diameter between 3.5 to 4 mm. Predilatation was performed using 3.5 mm noncompliant balloon but subsequently I deployed 4.0 x 12 mm stent where the stent was positioned under fluoroscopy guidance and deployed under 12 jocelyne for 20 seconds. Attempting advancing intravascular ultrasound again was unsuccessful and the catheter will not cross the stented segment and stuck at the very proximal edge of the stent. At that point I did advance a 4.0 x 12 mm noncompliant balloon for postdilatation and again I was unable to advance the stent where the proximal edge of the balloon hitting the proximal edge of the stent. At that point I decided to wire the LAD using a harriet wire. I did wired the LAD using a run-through wire. Again attempting advancing the balloon was unsuccessful but after that it was successful over the whisper wire. I did postdilatation using 4 mm x 12 mm balloon where the balloon was inflated and there 14 jocelyne for 20 seconds with final angiogram showing excellent angiographic results. After that I decided to intervene on the right coronary artery but before that I decided to do Dobler wire measurement of the RCA. I did zeroing the Doppler wire again and then I did equalization between the Doppler wire and the guiding catheter which was JR4 guiding catheter. Subsequently the RCA was engaged. Then I did wire the right coronary artery using the Doppler wire and I did an IFR which came to be at 0.68. Intravascular ultrasound was performed and showed a diameter of the RCA between 4 to 4.5 mm proximally. I did predilated using a 3.5 mm balloon before I deployed a 4.0 x 38 mm stent which was positioned under fluoroscopy guidance and deployed under 12 jocelyne for 20 seconds and subsequently postdilatation was performed using 4.5 mm noncompliant balloon. Please note that I was able to advance the balloon until I used a harriet wire again. Final angiogram showed excellent angiographic results and the procedure was completed with no complication. By the end I did selective right common femoral artery angiogram. SELECTIVE CORONARY ANGIOGRAM: The right coronary artery: Large-caliber vessel and a dominant vessel. The RCA has long tubular lesion up to about 60 to 70%. I did Doppler wire measurement with IFR which came to be ischemic at 0.68. Left main: Has mild disease only. Bifurcates into an LCx and LAD The left circumflex: Large-caliber vessel and nondominant vessel and the LCx appears to be chronically occluded in the very proximal portion. The left anterior descending artery: Large-caliber vessel with proximal LAD has a focal lesion appears to be in the range of 60 to 70%. We did an IFR and that came in to be ischemic at 0.78. The mid and distal LAD has mild to moderate diffuse disease with no high-grade stenosis identified. HEMODYNAMICS: The LVEDP was about 18 to 20 mmHg with no significant gradient across aortic valve CONCLUSION: 1. Severe disease involving the proximal LAD. 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 Severe disease involving the mid right coronary artery. I did perform successful stenting of the RCA as described above 4. Elevated left-sided filling pressure with LVEDP at 20 mmHg POSTPROCEDURE MANAGEMENT: 1. Dual antiplatelet therapy using aspirin and Brilinta for at least 12 month 2. Aggressive cholesterol control 3. Follow-up with the patient
--- NOTE | 2023-07-15 22:52 | P.CRDCN ---
History of Present Illness Consult date: 07/15/23 Chief complaint: reason for the consultation is cardiac arrest History of present illness: This is a 72-year-old female patient we are asked to see in the emergency room. The patient currently is intubated. The history was taken from the emergency room physician. Apparently the patient had a fall around Easter of this year and since then she has not been very active and she has been in bed. No details around the fall and no details if the patient lost her consciousness or no. She was brought by a family member to the emergency department because she was not feeling well she was feeling weak and tired and also she was experiencing some upper back discomfort felt to be from laying in bed. In the emergency department she underwent a workup including an EKG and that showed atrial fibrillation with diffuse ST segment depression except for ST segment elevation in aVR, finding concerning for global ischemia or triple-vessel coronary artery disease or left main coronary artery disease. Subsequently the patient went into cardiac arrest was ventricular fibrillation and she underwent a shock and she was brought back to normal sinus mechanism with an EKG showing diffuse ST segment depression but no clear-cut evidence of ST segment elevation on the EKG. The chest x-ray showed cardiomegaly. No other information are available at this point including any blood work results including CBC or BMP or any troponin or any creatinine. Currently the patient is intubated. She was given magnesium. She is hemodynamically stable. She was receiving sertraline as an outpatient. Beside that she does not have any history of coronary artery disease or congestive heart failure or any cardiac arrhythmia. Subsequently the patient underwent a CT scan of the brain which showed no acute abnormalities. She underwent a CTA of the chest also and that showed no evidence of pulmonary embolism. the examination revealed regular rhythm with a systolic murmur at the right upper sternal border with clear breathing sounds bilaterally and no edema in the lower extremities was noted. Assessment Acute coronary syndrome Cardiac arrest with ventricular fibrillation Paroxysmal atrial fibrillation Generalized weakness and fatigue History of peptic ulcer disease History of anemia Plan Proceed with coronary angiogram. Obtain an echocardiogram with Doppler Antiplatelet and statin and anti-ischemic medication Monitor the hemoglobin and kidney function Follow-up with the patient Past Medical History Past Medical History: GERD/Reflux, Hypertension History of Any Multi-Drug Resistant Organisms: None Reported Past Surgical History: Orthopedic Surgery Additional Past Surgical History / Comment(s): biopsy/ankle & knee Past Psychological History: No Psychological Hx Reported Past Alcohol Use History: None Reported Medications and Allergies Home Medications Medication Instructions Recorded Confirmed Type Cyclobenzaprine [Flexeril] 5 mg PO TID PRN 07/15/23 07/15/23 History Metoprolol Succinate (ER) [Toprol 25 mg PO DAILY 07/15/23 07/15/23 History Xl] Sertraline [Zoloft] 50 mg PO DAILY 07/15/23 07/15/23 History Allergies Allergy/AdvReac Type Severity Reaction Status Date / Time No Known Allergies Allergy Verified 07/15/23 16:34 Physical Exam Vitals: Vital Signs Temp Pulse Resp BP Pulse Ox 07/15/23 15:29 97.3 F L 104 H 18 126/97 96 Intake and Output 07/15/23 07/15/23 07/15/23 06:59 14:59 22:59 Other: Weight 64.864 kg Results 07/15/23 15:44 07/15/23 15:44 CBC 07/15/23 Range/Units 15:44 WBC 8.1 (3.8-10.6) k/uL RBC 2.64 L (3.80-5.40) m/uL Hgb 7.2 L (11.4-16.0) gm/dL Hct 22.7 L (34.0-46.0) % Plt Count 435 (150-450) k/uL Current Medications Generic Name Dose Route Start Last Admin Trade Name Freq PRN Reason Stop Dose Admin Sodium Chloride 1,000 mls @ 999 mls/hr 07/15/23 15:44 Saline 0.9% IV 07/15/23 16:44 .Q1H1M STA Propofol 1,000 mg/ IV Solution 100 mls @ 5.838 mls/hr 07/15/23 16:30 IV .Q17H8M MARINO Protocol 15 MCG/KG/MIN Intake and Output 07/15/23 07/15/23 07/15/23 06:59 14:59 22:59 Other: Weight 64.864 kg Patient Weight 07/16/23 06:59 Weight 64.864 kg 07/15/23 15:44
[2023-07-15 22:58] LABS: Basophils % (A) 0 %; Eosinophils % (A) 0 %; Hypochromasia Moderate; Lymphocytes # (A) 1.3 k/uL (1.0-4.8); Lymphocytes % (A) 12 %; MCH 27.2 pg (25.0-35.0); MCHC 31.5 g/dL (31.0-37.0); MCV 86.3 fL (80.0-100.0); Mean Platelet Volume 6.6; Monocytes # (A) 0.5 k/uL (0-1.0); Monocytes % (A) 4 %; Neutrophils # (A) 9.3 k/uL (1.3-7.7); Neutrophils % (A) 83 %; Platelet Count 401 k/uL (150-450); Poikilocytosis Slight; RBC 2.24 m/uL (3.80-5.40); RDW 13.3 % (11.5-15.5); WBC 11.3 k/uL (3.8-10.6)
[2023-07-15 23:04] LABS: HCT 19.3 % (34.0-46.0); HGB 6.1 gm/dL (11.4-16.0)
[2023-07-15 23:09] LABS: Glucose,Whole Blood 130 mg/dL (70-110)
[2023-07-15] MEDS: SODIUM CHLORIDE 0.9% 1,000 ML in EMPTY BAG 1 BAG IV SCH (23:15)
[2023-07-16 00:15] LABS: Basophils % (A) 0 %; Eosinophils % (A) 0 %; Hypochromasia Moderate; Lymphocytes # (A) 1.6 k/uL (1.0-4.8); Lymphocytes % (A) 14 %; MCH 26.6 pg (25.0-35.0); MCHC 31.2 g/dL (31.0-37.0); MCV 85.1 fL (80.0-100.0); Mean Platelet Volume 6.7; Monocytes # (A) 0.4 k/uL (0-1.0); Monocytes % (A) 3 %; Neutrophils % (A) 81 %; Platelet Count 384 k/uL (150-450); Poikilocytosis Moderate; RBC 2.32 m/uL (3.80-5.40); RDW 13.4 % (11.5-15.5); WBC 11.1 k/uL (3.8-10.6)
[2023-07-16 00:17] LABS: HCT 19.7 % (34.0-46.0); HGB 6.2 gm/dL (11.4-16.0)
[2023-07-16 00:56] LABS: African American GFR (CKD) >90 (>60 ml/min/1.73 sqM); Anion Gap 6 mmol/L; Blood Urea Nitrogen 16 mg/dL (7-17); Calcium 8.3 mg/dL (8.4-10.2); Carbon Dioxide 16 mmol/L (22-30); Chloride 113 mmol/L (98-107); Glucose 117 mg/dL (74-99); Magnesium 2.1 mg/dL (1.6-2.3); Non-African American GFR(CKD) 89 (>60 ml/min/1.73 sqM); Potassium 2.8 mmol/L (3.5-5.1); Sodium 135 mmol/L (137-145)
[2023-07-16] MEDS: NOREPINEPHRINE 4 MG in SODIUM CHLORIDE 0.9% 250 ML IV SCH (01:06)
[2023-07-16] MEDS: POTASSIUM BICARBONATE/CIT AC 20 MEQ TABLET.EFF NG-TUBE SCH ×3 (01:21→21:15)
[2023-07-16 01:52] LABS: Allen Test Performed? Yes
[2023-07-16 01:56] LABS: ABG HCO3 16 mmol/L (21-25); ABG PCO2 28 mmHg (35-45); ABG PH 7.37 (7.35-7.45); ABG PO2 118 mmHg (83-108); ABG TCO2 17 mmol/L (19-24)
[2023-07-16] MEDS: SODIUM BICARB 8.4% 50 ML SYR (1 MEQ/ML) IV STA (02:21)
[2023-07-16 05:48] LABS: HCT 30.3 % (34.0-46.0); Hypochromasia Marked; MCHC 30.3 g/dL (31.0-37.0); Mean Platelet Volume 6.9; Platelet Count 395 k/uL (150-450); Poikilocytosis Slight; RBC 3.28 m/uL (3.80-5.40); RDW 13.5 % (11.5-15.5); WBC 14.5 k/uL (3.8-10.6)
[2023-07-16 05:53] LABS: HGB 9.2 gm/dL (11.4-16.0)
[2023-07-16 05:54] LABS: MCV 92.4 fL (80.0-100.0)
[2023-07-16] MEDS: CISATRACURIUM 2 MG/ML 5 ML VIAL IV ONE (08:15)
--- NOTE | 2023-07-16 08:25 | XR ---
EXAMINATION TYPE: XR chest 1V portable DATE OF EXAM: 07/16/2023 Comparison: 07/15/2023 Clinical History: 72-year-old female Tube placement Findings: ET tube tip 2.1 cm from lokesh. NG tube courses below the diaphragm. Leftward patient rotation althou gh a normal cardiac mediastinal contours. Heart appears borderline enlarged. Medial right basilar opa city is present. Left base underpenetrated and not well assessed. Impression: Limited, rotated exam. There appears to be some patchy medial right basilar opacity.
[2023-07-16 08:34] LABS: ABG Base Excess -0.9 mmol/L; ABG HCO3 23 mmol/L (21-25); ABG PCO2 34 mmHg (35-45); ABG PH 7.44 (7.35-7.45); ABG PO2 142 mmHg (83-108); ABG TCO2 24 mmol/L (19-24)
[2023-07-16 08:35] LABS: Allen Test Performed? no
[2023-07-16] MEDS: METOPROLOL TARTRATE 25 MG TAB PO SCH (09:13)
[2023-07-16] MEDS: CHLORHEXIDINE GLUCONATE 15 ML CUP MUCOUS MEM SCH (09:13)
[2023-07-16] MEDS: ASPIRIN 81 MG PO SCH (09:13)
[2023-07-16] MEDS: TICAGRELOR 90 MG TAB PO SCH (09:13)
[2023-07-16] MEDS: SODIUM CHLORIDE 0.9% 1,000 ML IV SCH (09:15)
--- NOTE | 2023-07-16 09:17 | P.PN ---
Subjective Progress Note Date: 07/16/23 Principal diagnosis: Acute coronary syndrome This is a 72-year-old female patient we are asked to see in the emergency room. The patient currently is intubated. The history was taken from the emergency room physician. Apparently the patient had a fall around Easter of this year and since then she has not been very active and she has been in bed. No details around the fall and no details if the patient lost her consciousness or no. She was brought by a family member to the emergency department because she was not feeling well she was feeling weak and tired and also she was experiencing some upper back discomfort felt to be from laying in bed. In the emergency depart ment she underwent a workup including an EKG and that showed atrial fibrillation with diffuse ST segment depression except for ST segment elevation in aVR, finding concerning for global ischemia or triple-vessel coronary artery disease or left main coronary artery disease. Subsequently the patient went into cardiac arrest was ventricular fibrillation and she underwent a shock and she was brought back to normal sinus mechanism with an EKG showing diffuse ST segment depression but no clear-cut evidence of ST segment elevation on the EKG. The chest x-ray showed cardiomegaly. No other information are available at this point including any blood work results including CBC or BMP or any troponin or any creatinine. Currently the patient is intubated. She was given magnesium. She is hemodynamically stable. She was receiving sertraline as an outpatient. Beside that she does not have any history of coronary artery disease or congestive heart failure or any cardiac arrhythmia. Subsequently the patient underwent a CT scan of the brain which showed no acute abnormalities. She underwent a CTA of the chest also and that showed no evidence of pulmonary embolism. the examination revealed regular rhythm with a systolic murmur at the right upper sternal border with clear breathing sounds bilaterally and no edema in the lower extremities was noted. July 16, 2023 The patient was seen this morning. Currently she is intubated with a possible extubation in the next 24 hours according to the intensive care team. Hemodynamically she is stable and not on any vasopressors. Her hemoglobin last night came in to be below 7 and she received 1 unit of packed RBC and the last hemoglobin was above 9. She is on dual antiplatelet therapy along with beta- jose along with a statin. The echo still pending. the patient does not seems to be in any overt heart failure at this point. From the cardiovascular standpoint of view, I would continue the current medical regimen and continue following up with the echocardiogram and continue dual antiplatelet therapy. The examination revealed regular rhythm with a systolic murmur at the right upper sternal border with diminished breathing sounds bilaterally and no edema was noted in the lower extremities. Assessment Acute coronary syndrome Status post PCI of the LAD and RCA and known chronic total occlusion of the left circumflex Cardiac arrest with ventricular fibrillation Paroxysmal atrial fibrillation and currently she is in normal sinus mechanism Plan Continue the current medical regimen Continue monitor the hemoglobin Continue dual antiplatelet therapy along with a statin Consider adding oral anticoagulation once the hemoglobin is more stable and rule out any gastrointestinal bleeding Follow-up with the patient Follow-up on the echocardiogram Objective - Vital Signs Vital signs: Vital Signs Temp 97.9 F 07/16/23 08:00 Pulse 84 07/16/23 09:00 Resp 19 07/16/23 09:00 BP 119/59 07/16/23 08:00 Pulse Ox 100 07/16/23 09:00 FiO2 45 07/16/23 08:35 Intake & Output 07/15/23 07/16/23 07/16/23 18:59 06:59 18:59 Intake Total 1632.348 233.187 Output Total 430 370 Balance 1202.348 -136.813 Weight 64.864 kg Intake: IV 1220 150 Sodium Chloride 0.9% 1, 600 150 000 ml In Empty Bag 1 bag @ 75 mls/hr IV .[id number] [facility] Rx#:[id number] Intake, IV Titration 102.348 83.187 Amount Norepinephrine 4 mg In 2.348 Sodium Chloride 0.9% 250 ml @ 0.03 MCG/KG/MIN 7. 414 mls/hr IV .Q24H [facility] Rx#:[id number] propofoL 1,000 mg In 100.000 83.187 Empty Bag 1 bag @ 15 MCG/ KG/MIN 5.838 mls/hr IV . Q17H8M [facility] Rx#:[id number] Blood Product 310 Rc As-1 Unit 310 [id number] Output: Gastric Drainage 200 Urine 430 170 Other: Voiding Method Indwelling Catheter ABP, PAP, CO, CI - Last Documented Arterial Blood Pressure 130/54 - Labs CBC & Chem 7: 07/16/23 05:30 07/15/23 23:52 Labs: Abnormal Lab Results - Last 24 Hours (Table) 07/15/23 07/15/23 07/15/23 Range/Units 15:44 15:44 15:44 WBC (3.8-10.6) k/uL RBC 2.64 L (3.80-5.40) m/uL Hgb 7.2 L (11.4-16.0) gm/dL Hct 22.7 L (34.0-46.0) % MCHC (31.0-37.0) g/dL Neutrophils # (1.3-7.7) k/uL D-Dimer (<0.60) mg/L FEU ABG pH (7.35-7.45) ABG pCO2 (35-45) mmHg ABG pO2 (83-108) mmHg ABG HCO3 (21-25) mmol/L ABG Total CO2 (19-24) mmol/L ABG O2 Saturation (94-97) % Sodium 133 L (137-145) mmol/L Potassium 3.4 L (3.5-5.1) mmol/L Chloride (98-107) mmol/L Carbon Dioxide 17 L (22-30) mmol/L BUN 21 H (7-17) mg/dL Glucose 123 H (74-99) mg/dL POC Glucose (mg/dL) (70-110) mg/dL Plasma Lactic Acid Bolivar 3.6 H* (0.7-2.0) mmol/L Calcium (8.4-10.2) mg/dL Troponin I (0.000-0.034) ng/mL Total Protein 5.5 L (6.3-8.2) g/dL Albumin 2.7 L (3.5-5.0) g/dL Urine Appearance (Clear) Urine Protein (Negative) Ur Leukocyte Esterase (Negative) Urine WBC (0-5) /hpf Urine Bacteria (None) /hpf Urine Mucus (None) /hpf Crossmatch 07/15/23 07/15/23 07/15/23 Range/Units 15:44 15:44 16:23 WBC (3.8-10.6) k/uL RBC (3.80-5.40) m/uL Hgb (11.4-16.0) gm/dL Hct (34.0-46.0) % MCHC (31.0-37.0) g/dL Neutrophils # (1.3-7.7) k/uL D-Dimer 1.97 H (<0.60) mg/L FEU ABG pH (7.35-7.45) ABG pCO2 (35-45) mmHg ABG pO2 (83-108) mmHg ABG HCO3 (21-25) mmol/L ABG Total CO2 (19-24) mmol/L ABG O2 Saturation (94-97) % Sodium (137-145) mmol/L Potassium (3.5-5.1) mmol/L Chloride (98-107) mmol/L Carbon Dioxide (22-30) mmol/L BUN (7-17) mg/dL Glucose (74-99) mg/dL POC Glucose (mg/dL) (70-110) mg/dL Plasma Lactic Acid Bolivar (0.7-2.0) mmol/L Calcium (8.4-10.2) mg/dL Troponin I 0.079 H* (0.000-0.034) ng/mL Total Protein (6.3-8.2) g/dL Albumin (3.5-5.0) g/dL Urine Appearance Cloudy H (Clear) Urine Protein 1+ H (Negative) Ur Leukocyte Esterase Moderate H (Negative) Urine WBC 28 H (0-5) /hpf Urine Bacteria Moderate H (None) /hpf Urine Mucus Rare H (None) /hpf Crossmatch 07/15/23 07/15/23 07/15/23 Range/Units 17:02 19:53 22:30 WBC 11.3 H (3.8-10.6) k/uL RBC 2.24 L (3.80-5.40) m/uL Hgb 6.1 L* (11.4-16.0) gm/dL Hct 19.3 L* (34.0-46.0) % MCHC (31.0-37.0) g/dL Neutrophils # 9.3 H (1.3-7.7) k/uL D-Dimer (<0.60) mg/L FEU ABG pH 7.25 L (7.35-7.45) ABG pCO2 (35-45) mmHg ABG pO2 312 H (83-108) mmHg ABG HCO3 16 L (21-25) mmol/L ABG Total CO2 17 L (19-24) mmol/L ABG O2 Saturation 100.0 H (94-97) % Sodium (137-145) mmol/L Potassium (3.5-5.1) mmol/L Chloride (98-107) mmol/L Carbon Dioxide (22-30) mmol/L BUN (7-17) mg/dL Glucose (74-99) mg/dL POC Glucose (mg/dL) (70-110) mg/dL Plasma Lactic Acid Bolivar 3.7 H* (0.7-2.0) mmol/L Calcium (8.4-10.2) mg/dL Troponin I (0.000-0.034) ng/mL Total Protein (6.3-8.2) g/dL Albumin (3.5-5.0) g/dL Urine Appearance (Clear) Urine Protein (Negative) Ur Leukocyte Esterase (Negative) Urine WBC (0-5) /hpf Urine Bacteria (None) /hpf Urine Mucus (None) /hpf Crossmatch 07/15/23 07/15/23 07/15/23 Range/Units 22:30 23:08 23:52 WBC (3.8-10.6) k/uL RBC (3.80-5.40) m/uL Hgb (11.4-16.0) gm/dL Hct (34.0-46.0) % MCHC (31.0-37.0) g/dL Neutrophils # (1.3-7.7) k/uL D-Dimer (<0.60) mg/L FEU ABG pH (7.35-7.45) ABG pCO2 (35-45) mmHg ABG pO2 (83-108) mmHg ABG HCO3 (21-25) mmol/L ABG Total CO2 (19-24) mmol/L ABG O2 Saturation (94-97) % Sodium (137-145) mmol/L Potassium (3.5-5.1) mmol/L Chloride (98-107) mmol/L Carbon Dioxide (22-30) mmol/L BUN (7-17) mg/dL Glucose (74-99) mg/dL POC Glucose (mg/dL) 130 H (70-110) mg/dL Plasma Lactic Acid Bolivar (0.7-2.0) mmol/L Calcium (8.4-10.2) mg/dL Troponin I 3.010 H* (0.000-0.034) ng/mL Total Protein (6.3-8.2) g/dL Albumin (3.5-5.0) g/dL Urine Appearance (Clear) Urine Protein (Negative) Ur Leukocyte Esterase (Negative) Urine WBC (0-5) /hpf Urine Bacteria (None) /hpf Urine Mucus (None) /hpf Crossmatch See Detail 07/15/23 07/15/23 07/16/23 Range/Units 23:52 23:52 01:39 WBC 11.1 H (3.8-10.6) k/uL RBC 2.32 L (3.80-5.40) m/uL Hgb 6.2 L* (11.4-16.0) gm/dL Hct 19.7 L* (34.0-46.0) % MCHC (31.0-37.0) g/dL Neutrophils # 9.0 H (1.3-7.7) k/uL D-Dimer (<0.60) mg/L FEU ABG pH (7.35-7.45) ABG pCO2 28 L (35-45) mmHg ABG pO2 118 H (83-108) mmHg ABG HCO3 16 L (21-25) mmol/L ABG Total CO2 17 L (19-24) mmol/L ABG O2 Saturation 84.0 L (94-97) % Sodium 135 L (137-145) mmol/L Potassium 2.8 L (3.5-5.1) mmol/L Chloride 113 H (98-107) mmol/L Carbon Dioxide 16 L (22-30) mmol/L BUN (7-17) mg/dL Glucose 117 H (74-99) mg/dL POC Glucose (mg/dL) (70-110) mg/dL Plasma Lactic Acid Bolivar (0.7-2.0) mmol/L Calcium 8.3 L (8.4-10.2) mg/dL Troponin I (0.000-0.034) ng/mL Total Protein (6.3-8.2) g/dL Albumin (3.5-5.0) g/dL Urine Appearance (Clear) Urine Protein (Negative) Ur Leukocyte Esterase (Negative) Urine WBC (0-5) /hpf Urine Bacteria (None) /hpf Urine Mucus (None) /hpf Crossmatch 07/16/23 07/16/23 07/16/23 Range/Units 05:30 05:30 08:32 WBC 14.5 H (3.8-10.6) k/uL RBC 3.28 L (3.80-5.40) m/uL Hgb 9.2 L D (11.4-16.0) gm/dL Hct 30.3 L (34.0-46.0) % MCHC 30.3 L (31.0-37.0) g/dL Neutrophils # (1.3-7.7) k/uL D-Dimer (<0.60) mg/L FEU ABG pH (7.35-7.45) ABG pCO2 34 L (35-45) mmHg ABG pO2 142 H (83-108) mmHg ABG HCO3 (21-25) mmol/L ABG Total CO2 (19-24) mmol/L ABG O2 Saturation 100.0 H (94-97) % Sodium (137-145) mmol/L Potassium (3.5-5.1) mmol/L Chloride (98-107) mmol/L Carbon Dioxide (22-30) mmol/L BUN (7-17) mg/dL Glucose (74-99) mg/dL POC Glucose (mg/dL) (70-110) mg/dL Plasma Lactic Acid Bolivar (0.7-2.0) mmol/L Calcium (8.4-10.2) mg/dL Troponin I 4.190 H* (0.000-0.034) ng/mL Total Protein (6.3-8.2) g/dL Albumin (3.5-5.0) g/dL Urine Appearance (Clear) Urine Protein (Negative) Ur Leukocyte Esterase (Negative) Urine WBC (0-5) /hpf Urine Bacteria (None) /hpf Urine Mucus (None) /hpf Crossmatch
[2023-07-16] MEDS: PANTOPRAZOLE 40 MG/10 ML VIAL IVP SCH (09:20)
[2023-07-16 09:53] LABS: ALT 156 U/L (4-34); African American GFR (CKD) >90 (>60 ml/min/1.73 sqM); Albumin 2.1 g/dL (3.5-5.0); Anion Gap 2 mmol/L; Blood Urea Nitrogen 16 mg/dL (7-17); Calcium 8.2 mg/dL (8.4-10.2); Carbon Dioxide 21 mmol/L (22-30); Chloride 115 mmol/L (98-107); Glucose 111 mg/dL (74-99); Non-African American GFR(CKD) 89 (>60 ml/min/1.73 sqM); Sodium 138 mmol/L (137-145); Total Bilirubin 0.8 mg/dL (0.2-1.3); Total Protein 4.6 g/dL (6.3-8.2)
[2023-07-16] MEDS: HYDROmorphone 1 MG/ML 1 ML SYRINGE IVP PRN (09:53)
--- NOTE | 2023-07-16 09:53 | XR ---
EXAMINATION TYPE: XR chest 1V portable DATE OF EXAM: 07/16/2023 Comparison: 07/16/2023 earlier today Clinical History: 72-year-old female Line placement Findings: ET and NG tubes satisfactory. Improved positioning of the patient. Improved appearance to the previou s medial right basilar opacity. Right CVC tip is within the right atrium. Impression: Right CVC tip in the right atrium.
[2023-07-16 09:56] LABS: African American GFR (CKD) >90 (>60 ml/min/1.73 sqM); Non-African American GFR(CKD) 89 (>60 ml/min/1.73 sqM)
[2023-07-16 10:05] LABS: AST 150 U/L (14-36); Alkaline Phosphatase 104 U/L (38-126); Magnesium 1.9 mg/dL (1.6-2.3); Potassium 3.7 mmol/L (3.5-5.1)
[2023-07-16 12:14] LABS: Glucose,Whole Blood 114 mg/dL (70-110)
[2023-07-16] MEDS: IPRATROPIUM-ALBUTEROL 3 ML NEB INHALATION SCH (12:32)
--- NOTE | 2023-07-16 13:12 | P.HPIM ---
History of Present Illness H&P Date: 07/16/23 History of present illness; patient 72-year-old lady with past medical history significant for peptic ulcer disease, anemia who initially presented to ER for complaint of generalized weakness. Apparently patient had a fall in the beginning of this year and ever since then she has not been very active. Patient had a fall couple of weeks ago and she was unable to get up from the floor, later her son checked on him and told her to come to the ER but he refused. Following that patient continues to complain of back pain and was not feeling good. Patient was convinced by family to come to the ER today. In the ER, EKG done showed patient to have A-fib with diffuse ST segment depression. Patient went into cardiac arrest in the ER, patient was found to be in V-fib and later was shocked and brought back to rhythm. Patient was intubated . CT of the brain done showed no acute abnormalities. CTA of the chest done showed no evidence of PE. Cardiology were consulted and patient went for emergent cardiac cath and underwent Successful stenting of proximal LAD, Successful stenting of the mid R CA Patient was transferred to ICU REVIEW OF SYSTEMS: Cannot be obtained as patient is intubated PHYSICAL EXAMINATION: GENERAL: The patient is intubated HEENT: Pupils are round and equally reacting to light. EOMI. No scleral icterus. No conjunctival pallor. Normocephalic, atraumatic. No pharyngeal erythema. No thyromegaly. CARDIOVASCULAR: S1 and S2 present. No murmurs, rubs, or gallops. PULMONARY: Chest is clear to auscultation, no wheezing or crackles. ABDOMEN: Soft, nontender, nondistended, normoactive bowel sounds. No palpable organomegaly. MUSCULOSKELETAL: No joint swelling or deformity. EXTREMITIES: No cyanosis, clubbing, or pedal edema. NEUROLOGICAL: intubated SKIN: No rashes. Assessment and plan Cardiac arrest V-fib Acute coronary syndrome Status post PCI of the LAD and RCA and known chronic total occlusion of the left circumflex Paroxysmal atrial fibrillation and currently she is in normal sinus mechanism Acute hypoxic respiratory failure Anemia Hypokalemia Monitor vital signs Monitor CBC Monitor CMP Continue telemetry monitoring Continue vent management per ICU S/p cardiac cath with Successful stenting of proximal LAD, Successful stenting of the mid RCA Continue aspirin, Brilinta Continue IV Rocephin Continue Lipitor Continue breathing treatments Critical care consulted Cardiology following Labs and medication were reviewed.. Continue same treatment. Continue with symptomatic treatment. Resume home medication. Monitor labs and vitals. DVT and GI prophylaxis. Further recommendations as per clinical course of the patient Dictation was produced using [employer] dictation software. please excuse any grammatical, word or spelling errors. Past Medical History Past Medical History: GERD/Reflux, Hypertension History of Any Multi-Drug Resistant Organisms: None Reported Past Surgical History: Orthopedic Surgery Additional Past Surgical History / Comment(s): biopsy/ankle & knee Past Psychological History: No Psychological Hx Reported Past Alcohol Use History: None Reported Medications and Allergies Home Medications Medication Instructions Recorded Confirmed Type Cyclobenzaprine [Flexeril] 5 mg PO TID PRN 07/15/23 07/15/23 History Metoprolol Succinate (ER) [Toprol 25 mg PO DAILY 07/15/23 07/15/23 History Xl] Sertraline [Zoloft] 50 mg PO DAILY 07/15/23 07/15/23 History Allergies Allergy/AdvReac Type Severity Reaction Status Date / Time No Known Allergies Allergy Verified 07/15/23 16:34 Physical Exam Vitals: Vital Signs Temp Pulse Resp BP Pulse Ox FiO2 07/16/23 09:00 84 19 100 07/16/23 08:35 45 07/16/23 08:00 97.9 F 80 16 119/59 97 45 07/16/23 07:00 81 20 120/59 97 07/16/23 06:00 70 16 117/59 95 07/16/23 05:00 79 21 116/65 96 07/16/23 04:57 45 07/16/23 04:00 98 F 73 20 109/63 95 45 07/16/23 03:05 102 H 16 111/75 92 L 07/16/23 03:00 102 H 16 111/70 92 L 07/16/23 02:45 90 16 120/79 89 L 07/16/23 02:30 88 16 98/77 88 L 07/16/23 02:15 111 H 16 97/77 89 L 07/16/23 02:00 107 H 16 121/72 91 L 45 07/16/23 01:58 45 07/16/23 01:45 101 H 16 124/83 91 L 07/16/23 01:34 50 07/16/23 01:30 97.5 F L 108 H 16 130/81 91 L 07/16/23 01:10 97.5 F L 105 H 16 130/81 92 L 07/16/23 01:00 97.5 F L 97 16 87/53 91 L 07/16/23 00:45 102 H 16 72/44 07/16/23 00:30 62 16 111/91 94 L 07/16/23 00:15 63 16 93/57 97 07/16/23 00:00 97.5 F L 58 L 16 87/49 98 50 07/15/23 23:30 59 L 16 104/55 100 07/15/23 23:15 94.4 F L 65 16 109/64 97 50 07/15/23 20:11 79 20 137/75 95 07/15/23 19:28 50 07/15/23 17:24 50 07/15/23 16:52 100 07/15/23 16:46 100 07/15/23 16:38 83 16 113/59 100 07/15/23 15:29 97.3 F L 104 H 18 126/97 96 Intake and Output 07/15/23 07/16/23 07/16/23 22:59 06:59 14:59 Intake Total 620 1012.348 233.187 Output Total 430 370 Balance 620 582.348 -136.813 Intake: IV 620 600 150 Sodium Chloride 0.9% 1, 600 150 000 ml In Empty Bag 1 bag @ 75 mls/hr IV .[id number] [facility] Rx#:[id number] Intake, IV Titration 102.348 83.187 Amount Norepinephrine 4 mg In 2.348 Sodium Chloride 0.9% 250 ml @ 0.03 MCG/KG/MIN 7. 414 mls/hr IV .Q24H [facility] Rx#:[id number] propofoL 1,000 mg In 100.000 83.187 Empty Bag 1 bag @ 15 MCG/ KG/MIN 5.838 mls/hr IV . Q17H8M [facility] Rx#:[id number] Blood Product 310 Rc As-1 Unit 310 [id number] Output: Gastric Drainage 200 Urine 430 170 Other: Voiding Method Indwelling Catheter Weight 64.864 kg ABP, PAP, CO, CI - Last 8 Hours Arterial Blood Pressure 130/54 Results CBC & Chem 7: 07/16/23 05:30 07/15/23 23:52 Labs: Abnormal Lab Results - Last 24 Hours (Table) 07/15/23 07/15/23 07/15/23 Range/Units 15:44 15:44 15:44 WBC (3.8-10.6) k/uL RBC 2.64 L (3.80-5.40) m/uL Hgb 7.2 L (11.4-16.0) gm/dL Hct 22.7 L (34.0-46.0) % MCHC (31.0-37.0) g/dL Neutrophils # (1.3-7.7) k/uL D-Dimer (<0.60) mg/L FEU ABG pH (7.35-7.45) ABG pCO2 (35-45) mmHg ABG pO2 (83-108) mmHg ABG HCO3 (21-25) mmol/L ABG Total CO2 (19-24) mmol/L ABG O2 Saturation (94-97) % Sodium 133 L (137-145) mmol/L Potassium 3.4 L (3.5-5.1) mmol/L Chloride (98-107) mmol/L Carbon Dioxide 17 L (22-30) mmol/L BUN 21 H (7-17) mg/dL Glucose 123 H (74-99) mg/dL POC Glucose (mg/dL) (70-110) mg/dL Plasma Lactic Acid Bolivar 3.6 H* (0.7-2.0) mmol/L Calcium (8.4-10.2) mg/dL Troponin I (0.000-0.034) ng/mL Total Protein 5.5 L (6.3-8.2) g/dL Albumin 2.7 L (3.5-5.0) g/dL Urine Appearance (Clear) Urine Protein (Negative) Ur Leukocyte Esterase (Negative) Urine WBC (0-5) /hpf Urine Bacteria (None) /hpf Urine Mucus (None) /hpf Crossmatch 07/15/23 07/15/23 07/15/23 Range/Units 15:44 15:44 16:23 WBC (3.8-10.6) k/uL RBC (3.80-5.40) m/uL Hgb (11.4-16.0) gm/dL Hct (34.0-46.0) % MCHC (31.0-37.0) g/dL Neutrophils # (1.3-7.7) k/uL D-Dimer 1.97 H (<0.60) mg/L FEU ABG pH (7.35-7.45) ABG pCO2 (35-45) mmHg ABG pO2 (83-108) mmHg ABG HCO3 (21-25) mmol/L ABG Total CO2 (19-24) mmol/L ABG O2 Saturation (94-97) % Sodium (137-145) mmol/L Potassium (3.5-5.1) mmol/L Chloride (98-107) mmol/L Carbon Dioxide (22-30) mmol/L BUN (7-17) mg/dL Glucose (74-99) mg/dL POC Glucose (mg/dL) (70-110) mg/dL Plasma Lactic Acid Bolivar (0.7-2.0) mmol/L Calcium (8.4-10.2) mg/dL Troponin I 0.079 H* (0.000-0.034) ng/mL Total Protein (6.3-8.2) g/dL Albumin (3.5-5.0) g/dL Urine Appearance Cloudy H (Clear) Urine Protein 1+ H (Negative) Ur Leukocyte Esterase Moderate H (Negative) Urine WBC 28 H (0-5) /hpf Urine Bacteria Moderate H (None) /hpf Urine Mucus Rare H (None) /hpf Crossmatch 07/15/23 07/15/23 07/15/23 Range/Units 17:02 19:53 22:30 WBC 11.3 H (3.8-10.6) k/uL RBC 2.24 L (3.80-5.40) m/uL Hgb 6.1 L* (11.4-16.0) gm/dL Hct 19.3 L* (34.0-46.0) % MCHC (31.0-37.0) g/dL Neutrophils # 9.3 H (1.3-7.7) k/uL D-Dimer (<0.60) mg/L FEU ABG pH 7.25 L (7.35-7.45) ABG pCO2 (35-45) mmHg ABG pO2 312 H (83-108) mmHg ABG HCO3 16 L (21-25) mmol/L ABG Total CO2 17 L (19-24) mmol/L ABG O2 Saturation 100.0 H (94-97) % Sodium (137-145) mmol/L Potassium (3.5-5.1) mmol/L Chloride (98-107) mmol/L Carbon Dioxide (22-30) mmol/L BUN (7-17) mg/dL Glucose (74-99) mg/dL POC Glucose (mg/dL) (70-110) mg/dL Plasma Lactic Acid Bolivar 3.7 H* (0.7-2.0) mmol/L Calcium (8.4-10.2) mg/dL Troponin I (0.000-0.034) ng/mL Total Protein (6.3-8.2) g/dL Albumin (3.5-5.0) g/dL Urine Appearance (Clear) Urine Protein (Negative) Ur Leukocyte Esterase (Negative) Urine WBC (0-5) /hpf Urine Bacteria (None) /hpf Urine Mucus (None) /hpf Crossmatch 07/15/23 07/15/23 07/15/23 Range/Units 22:30 23:08 23:52 WBC (3.8-10.6) k/uL RBC (3.80-5.40) m/uL Hgb (11.4-16.0) gm/dL Hct (34.0-46.0) % MCHC (31.0-37.0) g/dL Neutrophils # (1.3-7.7) k/uL D-Dimer (<0.60) mg/L FEU ABG pH (7.35-7.45) ABG pCO2 (35-45) mmHg ABG pO2 (83-108) mmHg ABG HCO3 (21-25) mmol/L ABG Total CO2 (19-24) mmol/L ABG O2 Saturation (94-97) % Sodium (137-145) mmol/L Potassium (3.5-5.1) mmol/L Chloride (98-107) mmol/L Carbon Dioxide (22-30) mmol/L BUN (7-17) mg/dL Glucose (74-99) mg/dL POC Glucose (mg/dL) 130 H (70-110) mg/dL Plasma Lactic Acid Bolivar (0.7-2.0) mmol/L Calcium (8.4-10.2) mg/dL Troponin I 3.010 H* (0.000-0.034) ng/mL Total Protein (6.3-8.2) g/dL Albumin (3.5-5.0) g/dL Urine Appearance (Clear) Urine Protein (Negative) Ur Leukocyte Esterase (Negative) Urine WBC (0-5) /hpf Urine Bacteria (None) /hpf Urine Mucus (None) /hpf Crossmatch See Detail 07/15/23 07/15/23 07/16/23 Range/Units 23:52 23:52 01:39 WBC 11.1 H (3.8-10.6) k/uL RBC 2.32 L (3.80-5.40) m/uL Hgb 6.2 L* (11.4-16.0) gm/dL Hct 19.7 L* (34.0-46.0) % MCHC (31.0-37.0) g/dL Neutrophils # 9.0 H (1.3-7.7) k/uL D-Dimer (<0.60) mg/L FEU ABG pH (7.35-7.45) ABG pCO2 28 L (35-45) mmHg ABG pO2 118 H (83-108) mmHg ABG HCO3 16 L (21-25) mmol/L ABG Total CO2 17 L (19-24) mmol/L ABG O2 Saturation 84.0 L (94-97) % Sodium 135 L (137-145) mmol/L Potassium 2.8 L (3.5-5.1) mmol/L Chloride 113 H (98-107) mmol/L Carbon Dioxide 16 L (22-30) mmol/L BUN (7-17) mg/dL Glucose 117 H (74-99) mg/dL POC Glucose (mg/dL) (70-110) mg/dL Plasma Lactic Acid Bolivar (0.7-2.0) mmol/L Calcium 8.3 L (8.4-10.2) mg/dL Troponin I (0.000-0.034) ng/mL Total Protein (6.3-8.2) g/dL Albumin (3.5-5.0) g/dL Urine Appearance (Clear) Urine Protein (Negative) Ur Leukocyte Esterase (Negative) Urine WBC (0-5) /hpf Urine Bacteria (None) /hpf Urine Mucus (None) /hpf Crossmatch 07/16/23 07/16/23 07/16/23 Range/Units 05:30 05:30 08:32 WBC 14.5 H (3.8-10.6) k/uL RBC 3.28 L (3.80-5.40) m/uL Hgb 9.2 L D (11.4-16.0) gm/dL Hct 30.3 L (34.0-46.0) % MCHC 30.3 L (31.0-37.0) g/dL Neutrophils # (1.3-7.7) k/uL D-Dimer (<0.60) mg/L FEU ABG pH (7.35-7.45) ABG pCO2 34 L (35-45) mmHg ABG pO2 142 H (83-108) mmHg ABG HCO3 (21-25) mmol/L ABG Total CO2 (19-24) mmol/L ABG O2 Saturation 100.0 H (94-97) % Sodium (137-145) mmol/L Potassium (3.5-5.1) mmol/L Chloride (98-107) mmol/L Carbon Dioxide (22-30) mmol/L BUN (7-17) mg/dL Glucose (74-99) mg/dL POC Glucose (mg/dL) (70-110) mg/dL Plasma Lactic Acid [place] (0.7-2.0) mmol/L Calcium (8.4-10.2) mg/dL Troponin I 4.190 H* (0.000-0.034) ng/mL Total Protein (6.3-8.2) g/dL Albumin (3.5-5.0) g/dL Urine Appearance (Clear) Urine Protein (Negative) Ur Leukocyte Esterase (Negative) Urine WBC (0-5) /hpf Urine Bacteria (None) /hpf Urine Mucus (None) /hpf Crossmatch Thrombosis Risk Factor Assmnt - Choose All That Apply Each Factor Represents 1 point: Acute MS Each Risk Factor Represents 2 Points: Age 61-74 years Other congenital or acquired thrombophilia - If yes, enter type in comment: No Thrombosis Risk Factor Assessment Total Risk Factor Score: 3 Thrombosis Risk Factor Assessment Level: Moderate Risk
--- NOTE | 2023-07-16 14:06 | P.CNPUL ---
History of Present Illness Consult date: 07/16/23 Requesting physician: Faraz Rios Reason for consult: other (Cardiac arrest) Chief complaint: Weakness and not feeling well. History of present illness: This is a 72-year-old female known history of hypertension, GERD, presented to the ER yesterday with a chief complaint of not feeling well. Patient fell around Easter time, and since then she has not been active, mostly in bed, bedbound. Yesterday, the patient was brought in by a family member to the emergency room complaining of not feeling well, feeling weak and tired. In the emergency room, patient was found to be in atrial fibrillation with diffuse ST segment depression except for ST segment elevation in aVR, and cardiology was consulted. Cardiology suspected global ischemia or triple-vessel coronary artery disease. While in the ER, the patient had a nuclear fibrillation cardiac arrest. Patient became hypotensive, and according to the ER physician she had a torsades rhytm, patient had CPR for about 5 minutes with return of spontaneous circulation. In the meantime the patient was intubated, mechanically ventilated, she was given magnesium. And she was noted to become more hemodynamically stable. Patient had a CT angiogram of the chest showed showed no evidence of pulmonary embolism, CT of the brain showed no evidence of acute process. Plan the patient was seen by cardiology and she underwent cardiac catheterization. Underwent successful stenting of the proximal LAD successful stenting of the mid RCA attempted to balloon angioplasty of the left circumflex coronary artery. Patient was further stabilized in the cardiac Trip Rider, and she was transferred later to the ICU. I was made aware of this patient last night, and I was made aware of her ventilator settings and ABG. And these were adjusted accordingly. I am seeing this patient this morning she is on assist- control rate of 16 tidal volume 400 FiO2 45% and PEEP of 5 ABG showed a pO2 of 118 pCO2 28 pH of 7.37. Hence her assist-control rate was cut down to 14 FiO2 cut down to 35%. Patient had low hemoglobin earlier this morning and she received a unit of packed RBCs for a hemoglobin of 6.2 and it is now 9.2. Patient is on propofol at 45 mcg/kg/min IV fluid 0.9 normal saline at 75 cc/h. Patient is receiving Dilaudid and Protonix. And she is also on dual therapy/antiplatelet therapy since she had stent placement. During my evaluation, nurses were concerned about no access in this patient she had 2 small peripheral lines and could not establish any more IV access. Hence I went ahead and placed a right IJ triple-lumen catheter and placed a left femoral arterial line. Orders were placed on the chart, and the plan is to keep the patient intubated, mechanically ventilated, will definitely address weaning and possibly extubation in the next 24 hours. According to the nurses she was earlier following simple instructions, but she was extremely restless and agitated. Review of Systems ROS unobtainable: due to endotracheal tube Past Medical History Past Medical History: GERD/Reflux, Hypertension History of Any Multi-Drug Resistant Organisms: None Reported Past Surgical History: Orthopedic Surgery Additional Past Surgical History / Comment(s): biopsy/ankle & knee Past Psychological History: No Psychological Hx Reported Past Alcohol Use History: None Reported Medications and Allergies Home Medications Medication Instructions Recorded Confirmed Type Cyclobenzaprine [Flexeril] 5 mg PO TID PRN 07/15/23 07/15/23 History Metoprolol Succinate (ER) [Toprol 25 mg PO DAILY 07/15/23 07/15/23 History Xl] Sertraline [Zoloft] 50 mg PO DAILY 07/15/23 07/15/23 History Allergies Allergy/AdvReac Type Severity Reaction Status Date / Time No Known Allergies Allergy Verified 07/15/23 16:34 Physical Exam Vitals: Vital Signs Temp Pulse Resp BP Pulse Ox FiO2 07/16/23 13:00 78 15 109/51 96 35 07/16/23 12:48 90 07/16/23 12:38 88 07/16/23 12:00 97.7 F 75 14 108/51 98 35 07/16/23 11:35 35 07/16/23 11:00 67 14 106/46 95 07/16/23 10:00 76 14 100 07/16/23 09:00 84 19 100 07/16/23 08:35 45 07/16/23 08:00 97.9 F 80 16 119/59 97 45 07/16/23 07:00 81 20 120/59 97 07/16/23 06:00 70 16 117/59 95 07/16/23 05:00 79 21 116/65 96 07/16/23 04:57 45 07/16/23 04:00 98 F 73 20 109/63 95 45 07/16/23 03:05 102 H 16 111/75 92 L 07/16/23 03:00 102 H 16 111/70 92 L 07/16/23 02:45 90 16 120/79 89 L 07/16/23 02:30 88 16 98/77 88 L 07/16/23 02:15 111 H 16 97/77 89 L 07/16/23 02:00 107 H 16 121/72 91 L 45 07/16/23 01:58 45 07/16/23 01:45 101 H 16 124/83 91 L 07/16/23 01:34 50 07/16/23 01:30 97.5 F L 108 H 16 130/81 91 L 07/16/23 01:10 97.5 F L 105 H 16 130/81 92 L 07/16/23 01:00 97.5 F L 97 16 87/53 91 L 07/16/23 00:45 102 H 16 72/44 07/16/23 00:30 62 16 111/91 94 L 07/16/23 00:15 63 16 93/57 97 07/16/23 00:00 97.5 F L 58 L 16 87/49 98 50 07/15/23 23:30 59 L 16 104/55 100 07/15/23 23:15 94.4 F L 65 16 109/64 97 50 07/15/23 20:11 79 20 137/75 95 07/15/23 19:28 50 07/15/23 17:24 50 07/15/23 16:52 100 07/15/23 16:46 100 07/15/23 16:38 83 16 113/59 100 07/15/23 15:29 97.3 F L 104 H 18 126/97 96 Intake and Output 07/15/23 07/16/23 07/16/23 22:59 06:59 14:59 Intake Total 620 1012.348 568.483 Output Total 430 500 Balance 620 582.348 68.483 Intake: IV 620 600 375 Sodium Chloride 0.9% 1, 600 375 000 ml In Empty Bag 1 bag @ 75 mls/hr IV .[id number] FORMERLY [facility], 1928–1983 Rx#:[id number] Intake, IV Titration 102.348 193.483 Amount Norepinephrine 4 mg In 2.348 17.379 Sodium Chloride 0.9% 250 ml @ 0.03 MCG/KG/MIN 7. 414 mls/hr IV .Q24H [facility] Rx#:[id number] propofoL 1,000 mg In 100.000 176.104 Empty Bag 1 bag @ 15 MCG/ KG/MIN 5.838 mls/hr IV . Q17H8M [facility] Rx#:[id number] Blood Product 310 Rc As-1 Unit 310 [id number] Output: Gastric Drainage 200 Urine 430 300 Other: Voiding Method Indwelling Catheter Weight 64.864 kg ABP, PAP, CO, CI - Last 8 Hours Arterial Blood Pressure 114/44 Arterial Blood Pressure 128/45 Arterial Blood Pressure 106/43 Arterial Blood Pressure 130/54 GENERAL: Reveals a 72-year-old female in no distress, intubated, sedated, mechanically ventilated. HEENT: Pupils are round and equally reacting to light. EOMI. No scleral icterus. No conjunctival pallor. Normocephalic, atraumatic. No pharyngeal erythema. No thyromegaly. Endotracheal tube and orogastric tube are intact. Dry mucous membranes noted CARDIOVASCULAR: Normal S1-S2, no S3 gallop, no murmur. PULMONARY: Minimal fine crackles at the bases, no rhonchi no wheezes ABDOMEN: soft obese nontender no megaly no rebound no guarding. Positive bowel sounds. MUSCULOSKELETAL: No deformities noted. EXTREMITIES: No clubbing, edema or cyanosis. NEUROLOGICAL: Could not assess, patient is sedated and intubated/mechanically ventilated Psychiatric: Could not assess. SKIN: No rashes. Results - Laboratory Findings CBC and BMP: 07/16/23 05:30 07/16/23 08:34 ABG ABG pH 7.44 (7.35-7.45) 07/16/23 08:32 ABG pCO2 34 mmHg (35-45) L 07/16/23 08:32 ABG pO2 142 mmHg (83-108) H 07/16/23 08:32 ABG O2 Saturation 100.0 % (94-97) H 07/16/23 08:32 PT/INR, D-dimer PT 10.6 sec (10.0-12.5) 07/15/23 15:44 INR 1.0 (<1.2) 07/15/23 15:44 D-Dimer 1.97 mg/L FEU (<0.60) H 07/15/23 15:44 Abnormal lab findings: Abnormal Labs 07/15/23 07/15/23 07/15/23 15:44 15:44 15:44 WBC RBC 2.64 L Hgb 7.2 L Hct 22.7 L MCHC Neutrophils # D-Dimer ABG pH ABG pCO2 ABG pO2 ABG HCO3 ABG Total CO2 ABG O2 Saturation Sodium 133 L Potassium 3.4 L Chloride Carbon Dioxide 17 L BUN 21 H Glucose 123 H POC Glucose (mg/dL) Plasma Lactic Acid Bolivar 3.6 H* Calcium AST ALT Troponin I Total Protein 5.5 L Albumin 2.7 L Urine Appearance Urine Protein Ur Leukocyte Esterase Urine WBC Urine Bacteria Urine Mucus Crossmatch 07/15/23 07/15/23 07/15/23 15:44 15:44 16:23 WBC RBC Hgb Hct MCHC Neutrophils # D-Dimer 1.97 H ABG pH ABG pCO2 ABG pO2 ABG HCO3 ABG Total CO2 ABG O2 Saturation Sodium Potassium Chloride Carbon Dioxide BUN Glucose POC Glucose (mg/dL) Plasma Lactic Acid [place] Calcium AST ALT Troponin I 0.079 H* Total Protein Albumin Urine Appearance Cloudy H Urine Protein 1+ H Ur Leukocyte Esterase Moderate H Urine WBC 28 H Urine Bacteria Moderate H Urine Mucus Rare H Crossmatch 07/15/23 07/15/23 07/15/23 17:02 19:53 22:30 WBC 11.3 H RBC 2.24 L Hgb 6.1 L* Hct 19.3 L* MCHC Neutrophils # 9.3 H D-Dimer ABG pH 7.25 L ABG pCO2 ABG pO2 312 H ABG HCO3 16 L ABG Total CO2 17 L ABG O2 Saturation 100.0 H Sodium Potassium Chloride Carbon Dioxide BUN Glucose POC Glucose (mg/dL) Plasma Lactic Acid Bolivar 3.7 H* Calcium AST ALT Troponin I Total Protein Albumin Urine Appearance Urine Protein Ur Leukocyte Esterase Urine WBC Urine Bacteria Urine Mucus Crossmatch 07/15/23 07/15/23 07/15/23 22:30 23:08 23:52 WBC RBC Hgb Hct MCHC Neutrophils # D-Dimer ABG pH ABG pCO2 ABG pO2 ABG HCO3 ABG Total CO2 ABG O2 Saturation Sodium Potassium Chloride Carbon Dioxide BUN Glucose POC Glucose (mg/dL) 130 H Plasma Lactic Acid Bolivar Calcium AST ALT Troponin I 3.010 H* Total Protein Albumin Urine Appearance Urine Protein Ur Leukocyte Esterase Urine WBC Urine Bacteria Urine Mucus Crossmatch See Detail 07/15/23 07/15/23 07/16/23 23:52 23:52 01:39 WBC 11.1 H RBC 2.32 L Hgb 6.2 L* Hct 19.7 L* MCHC Neutrophils # 9.0 H D-Dimer ABG pH ABG pCO2 28 L ABG pO2 118 H ABG HCO3 16 L ABG Total CO2 17 L ABG O2 Saturation 84.0 L Sodium 135 L Potassium 2.8 L Chloride 113 H Carbon Dioxide 16 L BUN Glucose 117 H POC Glucose (mg/dL) Plasma Lactic Acid Bolivar Calcium 8.3 L AST ALT Troponin I Total Protein Albumin Urine Appearance Urine Protein Ur Leukocyte Esterase Urine WBC Urine Bacteria Urine Mucus Crossmatch 07/16/23 07/16/23 07/16/23 05:30 05:30 08:32 WBC 14.5 H RBC 3.28 L Hgb 9.2 L D Hct 30.3 L MCHC 30.3 L Neutrophils # D-Dimer ABG pH ABG pCO2 34 L ABG pO2 142 H ABG HCO3 ABG Total CO2 ABG O2 Saturation 100.0 H Sodium Potassium Chloride Carbon Dioxide BUN Glucose POC Glucose (mg/dL) Plasma Lactic Acid Bolivar Calcium AST ALT Troponin I 4.190 H* Total Protein Albumin Urine Appearance Urine Protein Ur Leukocyte Esterase Urine WBC Urine Bacteria Urine Mucus Crossmatch 07/16/23 07/16/23 07/16/23 08:34 08:34 12:12 WBC RBC Hgb Hct MCHC Neutrophils # D-Dimer ABG pH ABG pCO2 ABG pO2 ABG HCO3 ABG Total CO2 ABG O2 Saturation Sodium Potassium Chloride 115 H Carbon Dioxide 21 L BUN Glucose 111 H POC Glucose (mg/dL) 114 H Plasma Lactic Acid Bolivar Calcium 8.2 L AST 150 H ALT 156 H Troponin I 5.710 H* Total Protein 4.6 L Albumin 2.1 L Urine Appearance Urine Protein Ur Leukocyte Esterase Urine WBC Urine Bacteria Urine Mucus Crossmatch - Diagnostic Findings Chest x-ray: image reviewed (Right basilar opacity/atelectasis, doubt pneumonia, left base seems to be underpenetrated and could not be well assessed, follow-up chest x-ray after line placement showed improvement in both opacities in the left and right lower lobe) Assessment and Plan Assessment: Impression: Cardiac arrest/ventricular fibrillation/torsade Acute hypoxic respiratory failure secondary to above Acute coronary syndrome requiring cardiac catheterization and she is status post PCI to LAD and RCA, patient has chronic total occlusion of left circumflex Anemia, exact etiology is not clear, possibly chronic. Possible UTI based on urinalysis Paroxysmal atrial fibrillation, presently in normal sinus rhythm History of hypertension History of GERD Recommendation: Continue ventilatory support Continue dual antiplatelet therapy and statins Continue to monitor hemoglobin and transfuse if hemoglobin below 7 Continue GI and DVT prophylaxis Address nutritional support and possibly start enteral feeding Hemodynamic support if necessary, use norepinephrine if needed Follow-up echocardiogram in a.m. Central access and arterial access was established today for this patient. Patient is critically ill. Not ready for weaning Will continue to follow and address weaning and possible extubation in the next 24 hours depending on her overall clinical status. Critical care time is over 55 minutes, not including time spent on procedures Time with Patient: Greater than 30
--- NOTE | 2023-07-16 14:09 | OP ---
OPERATIVE REPORT DATE OF SERVICE : PROCEDURE PERFORMED: Placement of left femoral arterial line. PREOPERATIVE DIAGNOSES: Acute cardiac arrest and respiratory failure. POSTOPERATIVE DIAGNOSES: Acute cardiac arrest and respiratory failure. ANESTHESIA USED: None deployed. PROCEDURE: The patient was placed in a supine position, the left groin was prepared in a sterile fashion and drapes were applied. The left femoral artery was palpated, cannulated, and a guidewire was placed. Then a Cook catheter was inserted over the guidewire, and the guidewire was removed. Good blood flow, good waveform. No complications. Line was secured using 3.0 silk sutures. MMODL / IJN: [id number] /
--- NOTE | 2023-07-16 15:48 | CA ---
Transthoracic Echo Report Name: Jaimee Reyes Age: 72 Gender: F : 1950 Exam Date: 07/16/2023 09:35 Exam Location: [place] [facility] Ht (in): 62 Wt (lb): 143 Ordering Physician: Michael Ruiz MD ([id number]) Attending/Referring Phys: Seed Core Operator Amirah Rolon RDCS Procedure CPT: Indications: ACS Cardiac Hx: Technical Quality: Fair Contrast 1: Total Dose (mL): Contrast 2: Total Dose (mL): MEASUREMENTS (Male / Female) Normal Values 2D ECHO LV Diastolic Diameter PLAX 3.6 cm 4.2 - 5.9 / 3.9 - 5.3 cm LV Systolic Diameter PLAX 2.3 cm IVS Diastolic Thickness 1.8 cm 0.6 - 1.0 / 0.6 - 0.9 cm LVPW Diastolic Thickness 1.5 cm 0.6 - 1.0 / 0.6 - 0.9 cm LV Relative Wall Thickness 0.9 RV Internal Dim ED PLAX 3.2 cm LA Systolic Diameter LX 3.6 cm 3.0 - 4.0 / 2.7 - 3.8 cm LV Diastolic Volume MOD BP 54.8 cm??? 67 - 155 / 56 - 104 cm??? LV Systolic Volume MOD BP 15.4 cm??? 22 - 58 / 19 - 49 cm??? LV Ejection Fraction MOD BP 71.9 % >= 55 % LV Cardiac Index MOD BP 1876.9 cm???/min???m??? LV Diastolic Volume MOD 4C 72.9 cm??? LV Systolic Volume MOD 4C 15.3 cm??? LV Ejection Fraction MOD 4C 79.0 % LV Cardiac Index MOD 4C 2745.0 cm???/min???m??? LV Diastolic Length 4C 7.5 cm LV Systolic Length 4C 2.9 cm LV Diastolic Volume MOD 2C 41.1 cm??? LV Systolic Volume MOD 2C 16.1 cm??? LV Ejection Fraction MOD 2C 60.9 % LV Cardiac Index MOD 2C 1190.9 cm???/min???m??? LV Diastolic Length 2C 7.4 cm LV Systolic Length 2C 2.7 cm LA Volume 62.9 cm??? 18 - 58 / 22 - 52 cm??? LA Volume Index 37.0 cm???/m??? 16 - 28 cm???/m??? M-MODE Aortic Root Diameter MM 3.5 cm MV E Point Septal Separation 0.3 cm AV Cusp Separation MM 1.6 cm DOPPLER AV Peak Velocity 315.4 cm/s AV Peak Gradient 39.8 mmHg AV Mean Velocity 179.4 cm/s AV Mean Gradient 16.1 mmHg AV Velocity Time Integral 59.6 cm LVOT Peak Velocity 388.8 cm/s LVOT Peak Gradient 60.5 mmHg LVOT Velocity Time Integral 75.4 cm MV Area PHT 3.4 cm??? MR Peak Velocity 594.3 cm/s MR Peak Gradient 141.3 mmHg Mitral E Point Velocity 91.3 cm/s Mitral A Point Velocity 83.3 cm/s Mitral E to A Ratio 1.1 MV Deceleration Time 226.3 ms TR Peak Velocity 268.1 cm/s TR Peak Gradient 28.7 mmHg Right Ventricular Systolic Press 43.6 mmHg FINDINGS Left Ventricle Left ventricular ejection fraction is estimated at 70-75 %. Small left ventricular cavity. Severely increased septal wall thickness. Moderately increased posterior wall thickness. No obvious regional wall motion abnormalities. Right Ventricle Normal right ventricular size. Mild pulmonary hypertension. Right Atrium Normal right atrial size. Left Atrium Mildly increased left atrial volume. Mildly increased left atrial area. Mitral Valve Structurally normal mitral valve. [id number] mitral regurgitation. Aortic Valve Trileaflet aortic valve. Aortic valve sclerosis. LVOT obstruction with mean gradient of 33 mmhg. Tricuspid Valve Structurally normal tricuspid valve. Mild tricuspid regurgitation. Pulmonic Valve Structurally normal pulmonic valve. Mild pulmonic regurgitation. Pericardium No pericardial effusion. Aorta Normal size aortic root and proximal ascending aorta. CONCLUSIONS Hyperdynamic LV. The LV systolic function is about 70-75%. Basal septal hypertrophy. LVOT gradient up to about 33 mmHg. Moderate to severe mitral regurgitation with posteriorly directed jet with possible systolic anterior motion of the anterior mitral leaflet Previewed by: Dr. Michael Ruiz MD (Electronically Signed) Final Date: 16 July 2023 15:47
[2023-07-16] MEDS: FUROSEMIDE 10 MG/ML 4 ML VIAL IV STA (16:41)
[2023-07-16 17:53] LABS: Glucose,Whole Blood 169 mg/dL (70-110)
[2023-07-16] MEDS: ATORVASTATIN 80 MG TAB PO SCH (20:13)
[2023-07-16] MEDS: SODIUM CHLORIDE 0.9% 500 ML 500 ML IV ONE (20:13)
--- NOTE | 2023-07-16 20:30 | OP ---
OPERATIVE REPORT DATE OF SERVICE : PROCEDURE: Placement of a right IJ triple-lumen catheter. PREOPERATIVE DIAGNOSES: Cardiac arrest and respiratory failure. POSTOPERATIVE DIAGNOSES: Cardiac arrest and respiratory failure. ANESTHESIA USED: 2 mL of 1% lidocaine. PROCEDURE IN DETAIL: The patient was placed in a Trendelenburg position. The area of the right cervical region was prepared in a sterile fashion. Drapes were applied. The area was locally anesthetized at the posterior belly of the sternocleidomastoid. Then using the posterior approach, the left internal jugular vein was easily cannulated, a guidewire was placed, a triple-lumen catheter was inserted over the guidewire and the guidewire was removed. Good blood flow noted in 3 different ports of the triple-lumen catheter, line was secured with 3.0 silk sutures. Chest x-ray showed adequate placement and no complications. MMJOHANA / JAGRUTIN: [id number] /
[2023-07-16] MEDS: MAGNESIUM SULFATE-D5W PMX 1 GM in DEXTROSE/WATER 1 100ML.BAG IVPB ONE (21:15)
[2023-07-16 23:59] LABS: Glucose,Whole Blood 180 mg/dL (70-110)
[2023-07-17 05:22] LABS: Basophils % (A) 0 %; Eosinophils % (A) 0 %; HCT 21.3 % (34.0-46.0); Hypochromasia Marked; Lymphocytes # (A) 1.4 k/uL (1.0-4.8); Lymphocytes % (A) 10 %; MCH 27.5 pg (25.0-35.0); MCHC 32.1 g/dL (31.0-37.0); Mean Platelet Volume 7.6; Monocytes # (A) 0.7 k/uL (0-1.0); Monocytes % (A) 5 %; Neutrophils # (A) 11.9 k/uL (1.3-7.7); Neutrophils % (A) 83 %; Platelet Count 384 k/uL (150-450); Poikilocytosis Marked; RBC 2.48 m/uL (3.80-5.40); RDW 14.3 % (11.5-15.5); WBC 14.3 k/uL (3.8-10.6)
[2023-07-17 05:27] LABS: MCV 85.7 fL (80.0-100.0)
[2023-07-17 05:28] LABS: HGB 6.8 gm/dL (11.4-16.0)
[2023-07-17 05:40] LABS: African American GFR (CKD) 68 (>60 ml/min/1.73 sqM); Anion Gap 8 mmol/L; Blood Urea Nitrogen 14 mg/dL (7-17); Calcium 7.8 mg/dL (8.4-10.2); Carbon Dioxide 16 mmol/L (22-30); Chloride 116 mmol/L (98-107); Glucose 143 mg/dL (74-99); Non-African American GFR(CKD) 59 (>60 ml/min/1.73 sqM); Potassium 3.6 mmol/L (3.5-5.1); Sodium 140 mmol/L (137-145)
[2023-07-17 05:43] LABS: Glucose,Whole Blood 152 mg/dL (70-110)
[2023-07-17 05:45] LABS: ABG Base Excess -6.3 mmol/L; ABG HCO3 18 mmol/L (21-25); ABG Oxygen Saturation 99.9 % (94-97); ABG PCO2 27 mmHg (35-45); ABG PH 7.43 (7.35-7.45); ABG PO2 132 mmHg (83-108); ABG TCO2 19 mmol/L (19-24); Allen Test Performed? Yes
[2023-07-17] MEDS: POTASSIUM CHLORIDE 20 MEQ in WATER FOR INJECTION 1 100ML.BAG IVPB STA (06:07)
--- NOTE | 2023-07-17 08:38 | XR ---
EXAMINATION TYPE: XR chest 1V portable DATE OF EXAM: 07/17/2023 Comparison: 07/16/2023 Clinical History: 72-year-old female mechanical ventilation Findings: ET tube tip 2.0 cm from the lokesh. NG tube courses below the diaphragm. Right IJ CVC tip at the infe rior cavoatrial junction far down in the right atrium. Patchy bibasilar opacities appear to be slight ly increased particularly in the retrocardiac region. Impression: 1. Right CVC tip far down in the right atrium near the inferior cavoatrial junction. 2. Slight increasing patchy bibasilar opacities especially in the retrocardiac region.
[2023-07-17] MEDS ORDERED: DEXTROSE 50% SYRINGE 50 ML IVP PRN ×2 (09:28)
[2023-07-17 11:23] VITALS: BMI 26.2
--- NOTE | 2023-07-17 11:45 | P.PN ---
Subjective Progress Note Date: 07/17/23 Principal diagnosis: Respiratory failure. This is a 72-year-old female known history of hypertension, GERD, presented to the ER yesterday with a chief complaint of not feeling well. Patient fell around Easter time, and since then she has not been active, mostly in bed, bedbound. Yesterday, the patient was brought in by a family member to the emergency room complaining of not feeling well, feeling weak and tired. In the emergency room, patient was found to be in atrial fibrillation with diffuse ST segment depression except for ST segment elevation in aVR, and cardiology was consulted. Cardiology suspected global ischemia or triple-vessel coronary artery disease. While in the ER, the patient had a nuclear fibrillation cardiac arrest. Patient became hypotensive, and according to the ER physician she had a torsades rhytm, patient had CPR for about 5 minutes with return of spontaneous circulation. In the meantime the patient was intubated, mechanically ventilated , she was given magnesium. And she was noted to become more hemodynamically stable. Patient had a CT angiogram of the chest showed showed no evidence of pulmonary embolism, CT of the brain showed no evidence of acute process. Plan the patient was seen by cardiology and she underwent cardiac catheterization. Underwent successful stenting of the proximal LAD successful stenting of the mid RCA attempted to balloon angioplasty of the left circumflex coronary artery. Patient was further stabilized in the cardiac Wire Twisting Machine Operator, and she was transferred later to the ICU. I was made aware of this patient last night, and I was made aware of her ventilator settings and ABG. And these were adjusted accordingly. I am seeing this patient this morning she is on assist-control rate of 16 tidal volume 400 FiO2 45% and PEEP of 5 ABG showed a pO2 of 118 pCO2 28 pH of 7.37. Hence her assist-control rate was cut down to 14 FiO2 cut down to 35%. Patient had low hemoglobin earlier this morning and she received a unit of packed RBCs for a hemoglobin of 6.2 and it is now 9.2. Patient is on propofol at 45 mcg/kg/min IV fluid 0.9 normal saline at 75 cc/h. Patient is receiving Dilaudid and Protonix. And she is also on dual therapy/antiplatelet therapy since she had stent placement. During my evaluation, nurses were concerned about no access in this patient she had 2 small peripheral lines and could not establish any more IV access. Hence I went ahead and placed a right IJ triple-lumen catheter and placed a left femoral arterial line. Orders were placed on the chart, and the plan is to keep the patient intubated, mechanically ventilated, will definitely address weaning and possibly extubation in the next 24 hours. According to the nurses she was earlier following simple instructions, but she was extremely restless and agitated. Progress note dated July 17, 2023. This is a patient who was seen in consultation yesterday. The patient was admitted on July 14, with a ventricular fibrillation arrest. She was intubated on the same day. She went to the catheterization laboratory on July 14, and had stents placed in the right coronary artery, and left anterior descending coronary artery. The patient remains on the ventilator. Ventilator settings include volume assist-control, rate 14, tidal volume 400, FiO2 35%, PEEP of 5. Blood gases show pO2 of 132, pCO2 of 27, and a pH of 7.43. The patient is on saline at 75 cc an hour, propofol at 45 mcg/kg/min, norepinephrine at 2 mcg/min, and vital AF at 10 cc an hour. She has received a total of 2 units of packed red blood cells. Today, we are going to do a daily interruption of sedation and a spontaneous breathing trial, on pressure support of 5 and CPAP of 5. White count 14.3, hemoglobin 6.8, hematocrit 21.3, and platelet count normal. Sodium 140, potassium 3.6, chlorides 116, CO2 16, BUN 14, creatinine 0.96. Glucose 152. Calcium 7.8. Magnesium was 2.0. Blood and sputum sampling thus far is negative. Chest x-ray shows some patchy bibasilar infiltrates. Objective - Vital Signs Vital signs: Vital Signs Temp 98.6 F 07/17/23 09:24 Pulse 84 07/17/23 11:00 Resp 35 H 07/17/23 11:00 BP 132/52 07/17/23 09:24 Pulse Ox 98 07/17/23 11:00 FiO2 30 07/17/23 11:00 Intake & Output 07/16/23 07/17/23 07/17/23 18:59 06:59 18:59 Intake Total 5393.953 1184.082 908.310 Output Total 872 810 420 Balance 266.483 753.082 488.310 Weight 64.864 kg 64.864 kg Intake: IV 825 1000 75 Magnesium Sulfate-D5w Pmx 100 1 gm In Dextrose/Water 1 100ml.bag @ 100 mls/hr IVPB ONCE ONE Rx#: [id number] Sodium Chloride 0.9% 1, 825 900 75 000 ml In Empty Bag 1 bag @ 75 mls/hr IV .[id number] [facility] Rx#:[id number] Intake, IV Titration 293.483 353.082 497.310 Amount Norepinephrine 4 mg In 17.379 91.358 32.251 Sodium Chloride 0.9% 250 ml @ 0.03 MCG/KG/MIN 7. 414 mls/hr IV .Q24H [facility] Rx#:[id number] Sodium Chloride 0.9% 1, 300 000 ml @ 75 mls/hr IV . [id number] [facility] Rx#:[id number] cefTRIAXone 1 gm In 100 Sodium Chloride 0.9% 50 ml @ 100 mls/hr IVPB Q24HR [facility] Rx#:[id number] propofoL 1,000 mg In 276.104 261.724 65.059 Empty Bag 1 bag @ 15 MCG/ KG/MIN 5.838 mls/hr IV . Q17H8M [facility] Rx#:[id number] Tube Feeding 20 120 30 Blood Product 276 Rc Pheresis As-3 Unit 276 [id number] Other 90 30 Output: Gastric Drainage 200 Urine 672 810 420 Other: Voiding Method Indwelling Catheter Indwelling Catheter Indwelling Catheter ABP, PAP, CO, CI - Last Documented Arterial Blood Pressure 116/47 - Exam No acute distress, sedated, with an orally placed endotracheal tube. HEENT examination is grossly unremarkable. Neck supple. Full range of motion. No adenopathy thyromegaly or neck vein distention. Cardiovascular examination reveals regular rhythm rate. S1-S2 normal. No S3 or S4. No discernible murmur noted. Heart rate 84 bpm. Lungs reveal scattered bilateral rhonchi. No wheezes or crackles. Breath sounds equal. Saturations are in the mid to high 90s. Abdomen soft with bowel sounds. No masses or tenderness. Extremities are intact. No cyanosis clubbing or edema. Skin is without rash or lesion. Neurologic examination cannot be adequately assessed at this time because of sedation. - Labs CBC & Chem 7: 07/17/23 04:45 07/17/23 09:22 Labs: Abnormal Lab Results - Last 24 Hours (Table) 07/15/23 07/16/23 07/16/23 Range/Units 22:30 12:12 17:51 WBC (3.8-10.6) k/uL RBC (3.80-5.40) m/uL Hgb (11.4-16.0) gm/dL Hct (34.0-46.0) % Neutrophils # (1.3-7.7) k/uL ABG pCO2 (35-45) mmHg ABG pO2 (83-108) mmHg ABG HCO3 (21-25) mmol/L ABG O2 Saturation (94-97) % Chloride (98-107) mmol/L Carbon Dioxide (22-30) mmol/L Glucose (74-99) mg/dL POC Glucose (mg/dL) 114 H 169 H (70-110) mg/dL Calcium (8.4-10.2) mg/dL Troponin I (0.000-0.034) ng/mL Crossmatch See Detail 07/16/23 07/16/23 07/17/23 Range/Units 17:53 23:57 04:45 WBC (3.8-10.6) k/uL RBC (3.80-5.40) m/uL Hgb (11.4-16.0) gm/dL Hct (34.0-46.0) % Neutrophils # (1.3-7.7) k/uL ABG pCO2 (35-45) mmHg ABG pO2 (83-108) mmHg ABG HCO3 (21-25) mmol/L ABG O2 Saturation (94-97) % Chloride 116 H (98-107) mmol/L Carbon Dioxide 16 L (22-30) mmol/L Glucose 143 H (74-99) mg/dL POC Glucose (mg/dL) 180 H (70-110) mg/dL Calcium 7.8 L (8.4-10.2) mg/dL Troponin I 6.880 H* (0.000-0.034) ng/mL Crossmatch 07/17/23 07/17/23 07/17/23 Range/Units 04:45 05:42 05:43 WBC 14.3 H (3.8-10.6) k/uL RBC 2.48 L (3.80-5.40) m/uL Hgb 6.8 L* D (11.4-16.0) gm/dL Hct 21.3 L (34.0-46.0) % Neutrophils # 11.9 H (1.3-7.7) k/uL ABG pCO2 27 L (35-45) mmHg ABG pO2 132 H (83-108) mmHg ABG HCO3 18 L (21-25) mmol/L ABG O2 Saturation 99.9 H (94-97) % Chloride (98-107) mmol/L Carbon Dioxide (22-30) mmol/L Glucose (74-99) mg/dL POC Glucose (mg/dL) 152 H (70-110) mg/dL Calcium (8.4-10.2) mg/dL Troponin I (0.000-0.034) ng/mL Crossmatch Microbiology - Last 24 Hours (Table) 07/15/23 18:56 Blood Culture - Preliminary Blood 07/15/23 18:40 Blood Culture - Preliminary Blood 07/15/23 17:01 Gram Stain - Preliminary Sputum Sputum Culture - Preliminary Assessment and Plan Assessment: S/P cardiopulmonary arrest, July 15, 2023, with intubation and mechanical ventilation on the same day. Acute coronary syndrome, S/P cardiac catheterization on July 14, with stenting of the LAD and RCA. Acute hypoxemic respiratory failure. Anemia. Possible UTI. Paroxysmal atrial fibrillation. History of hypertension. History of gastroesophageal reflux disease. Plan: Plan dated July 17, 2023. The patient sedation will be held, and we will attempt a spontaneous breathing trial. We do make some ventilator settings, dropping the tidal volume from 400 down to 350, and dropping the FiO2 from 35%, down to 30%. Additional recommendations and suggestions are forthcoming. Labs, x-rays, and medications are reviewed. Hopefully, we will be able to move towards weaning and ex tubation. We will continue to follow make recommendations along the way. Prognosis is certainly guarded. Time with Patient: Greater than 30
[2023-07-17 11:59] LABS: Glucose,Whole Blood 138 mg/dL (70-110)
[2023-07-17] MEDS: INSULIN ASPART (NovoLOG) 100 UNIT/ML VIAL SQ SCH ×2 (12:05→12:07)
--- NOTE | 2023-07-17 15:44 | P.PN ---
Subjective Acute coronary syndrome This is a 72-year-old female patient we are asked to see in the emergency room. The patient currently is intubated. The history was taken from the emergency room physician. Apparently the patient had a fall around of this year and since then she has not been very active and she has been in bed. No details around the fall and no details if the patient lost her consciousness or no. She was brought by a family member to the emergency department because she was not feeling well she was feeling weak and tired and also she was experiencing some upper back discomfort felt to be from laying in bed. In the emergency department she underwent a workup including an EKG and that showed atrial fibrillation with diffuse ST segment depression except for ST segment elevation in aVR, finding concerning for global ischemia or triple-vessel coronary artery disease or left main coronary artery disease. Subsequently the patient went into cardiac arrest was ventricular fibrillation and she underwent a shock and she was brought back to normal sinus mechanism with an EKG showing diffuse ST segment depression but no clear-cut evidence of ST segment elevation on the EKG. The chest x-ray showed cardiomegaly. No other information are available at this point including any blood work results including CBC or BMP or any troponin or any creatinine. Currently the patient is intubated. She was given magnesium. She is hemodynamically stable. She was receiving sertraline as an outpatient. Beside that she does not have any history of coronary artery disease or congestive heart failure or any cardiac arrhythmia. Subsequently the patient underwent a CT scan of the brain which showed no acute abnormalities. She underwent a CTA of the chest also and that showed no evidence of pulmonary embolism. the examination revealed regular rhythm with a systolic murmur at the right upper sternal border with clear breathing sounds bilaterally and no edema in the lower extremities was noted. July 16, 2023 The patient was seen this morning. Currently she is intubated with a possible extubation in the next 24 hours according to the intensive care team. Hemodynamically she is stable and not on any vasopressors. Her hemoglobin last night came in to be below 7 and she received 1 unit of packed RBC and the last hemoglobin was above 9. She is on dual antiplatelet therapy along with beta- jose along with a statin. The echo still pending. the patient does not seems to be in any overt heart failure at this point. From the cardiovascular standpoint of view, I would continue the current medical regimen and continue following up with the echocardiogram and continue dual antiplatelet therapy. The examination revealed regular rhythm with a systolic murmur at the right upper sternal border with diminished breathing sounds bilaterally and no edema was noted in the lower extremities. 07/15 Patient seen and examined. Patient was extubated and currently on nasal cannula. She denies any chest pain or pressure. No significant arrhythmias noted on telemetry. Patient did have drop in hemoglobin again to 6.8 however no active bleeding. No significant hematoma noted at the femoral site. Echocardiogram showing EF 65% with moderate to severe mitral regurgitation as well as LVOT gradient. Assessment Acute coronary syndrome Status post PCI of the LAD and RCA and known chronic total occlusion of the left circumflex Cardiac arrest with ventricular fibrillation Paroxysmal atrial fibrillation and currently she is in normal sinus mechanism moderate to severe mitral regurgitation LVOT gradient Anemia status post blood transfusion Plan Continue the current medical regimen Continue monitor the hemoglobin Continue dual antiplatelet therapy along with a statin Consider adding oral anticoagulation once the hemoglobin is more stable and rule out any gastrointestinal bleeding. currently hemoglobin was still low and we will continue off of anticoagulation echo findings of LVOT gradient as well as moderate to severe mitral regurgitation however on exam no significant murmur. No family history of hy pertrophic cardiomyopathy and V. fib appears more related to non-STEMI.patient was recently hypotensive on pressors however now borderline hypertensive. Objective - Vital Signs Vital signs: Vital Signs Temp 98.4 F 07/17/23 12:00 Pulse 87 07/17/23 15:00 Resp 21 07/17/23 15:00 BP 132/52 07/17/23 09:24 Pulse Ox 99 07/17/23 15:00 FiO2 30 07/17/23 12:04 Intake & Output 07/16/23 07/17/23 07/17/23 18:59 06:59 18:59 Intake Total 5587.676 2029.082 1209.997 Output Total 872 810 555 Balance 266.483 753.082 654.997 Weight 64.864 kg 64.864 kg Intake: IV 825 1000 75 Magnesium Sulfate-D5w Pmx 100 1 gm In Dextrose/Water 1 100ml.bag @ 100 mls/hr IVPB ONCE ONE Rx#: [id number] Sodium Chloride 0.9% 1, 825 900 75 000 ml In Empty Bag 1 bag @ 75 mls/hr IV .[id number] [facility] Rx#:[id number] Intake, IV Titration 293.483 353.082 798.997 Amount Norepinephrine 4 mg In 17.379 91.358 32.251 Sodium Chloride 0.9% 250 ml @ 0.03 MCG/KG/MIN 7. 414 mls/hr IV .Q24H [facility] Rx#:[id number] Sodium Chloride 0.9% 1, 600 000 ml @ 75 mls/hr IV . [id number] [facility] Rx#:[id number] cefTRIAXone 1 gm In 100 Sodium Chloride 0.9% 50 ml @ 100 mls/hr IVPB Q24HR [facility] Rx#:[id number] propofoL 1,000 mg In 276.104 261.724 66.746 Empty Bag 1 bag @ 15 MCG/ KG/MIN 5.838 mls/hr IV . Q17H8M [facility] Rx#:[id number] Tube Feeding 20 120 30 Blood Product 276 Rc Pheresis As-3 Unit 276 [id number] Other 90 30 Output: Gastric Drainage 200 Urine 672 810 555 Other: Voiding Method Indwelling Catheter Indwelling Catheter Indwelling Catheter ABP, PAP, CO, CI - Last Documented Arterial Blood Pressure 148/55 - Labs CBC & Chem 7: 07/17/23 04:45 07/17/23 09:22 Labs: Abnormal Lab Results - Last 24 Hours (Table) 07/15/23 07/16/23 07/16/23 Range/Units 22:30 17:51 17:53 WBC (3.8-10.6) k/uL RBC (3.80-5.40) m/uL Hgb (11.4-16.0) gm/dL Hct (34.0-46.0) % Neutrophils # (1.3-7.7) k/uL ABG pCO2 (35-45) mmHg ABG pO2 (83-108) mmHg ABG HCO3 (21-25) mmol/L ABG O2 Saturation (94-97) % Chloride (98-107) mmol/L Carbon Dioxide (22-30) mmol/L Glucose (74-99) mg/dL POC Glucose (mg/dL) 169 H (70-110) mg/dL Calcium (8.4-10.2) mg/dL Troponin I 6.880 H* (0.000-0.034) ng/mL Crossmatch See Detail 04/21/24 04/22/24 04/22/24 Range/Units 23:57 04:45 04:45 WBC 14.3 H (3.8-10.6) k/uL RBC 2.48 L (3.80-5.40) m/uL Hgb 6.8 L* D (11.4-16.0) gm/dL Hct 21.3 L (34.0-46.0) % Neutrophils # 11.9 H (1.3-7.7) k/uL ABG pCO2 (35-45) mmHg ABG pO2 (83-108) mmHg ABG HCO3 (21-25) mmol/L ABG O2 Saturation (94-97) % Chloride 116 H (98-107) mmol/L Carbon Dioxide 16 L (22-30) mmol/L Glucose 143 H (74-99) mg/dL POC Glucose (mg/dL) 180 H (70-110) mg/dL Calcium 7.8 L (8.4-10.2) mg/dL Troponin I (0.000-0.034) ng/mL Crossmatch 07/17/23 07/17/23 07/17/23 Range/Units 05:42 05:43 11:58 WBC (3.8-10.6) k/uL RBC (3.80-5.40) m/uL Hgb (11.4-16.0) gm/dL Hct (34.0-46.0) % Neutrophils # (1.3-7.7) k/uL ABG pCO2 27 L (35-45) mmHg ABG pO2 132 H (83-108) mmHg ABG HCO3 18 L (21-25) mmol/L ABG O2 Saturation 99.9 H (94-97) % Chloride (98-107) mmol/L Carbon Dioxide (22-30) mmol/L Glucose (74-99) mg/dL POC Glucose (mg/dL) 152 H 138 H (70-110) mg/dL Calcium (8.4-10.2) mg/dL Troponin I (0.000-0.034) ng/mL Crossmatch Microbiology - Last 24 Hours (Table) 07/15/23 17:01 Gram Stain - Final Sputum Sputum Culture - Final 07/15/23 18:56 Blood Culture - Preliminary Blood 07/15/23 18:40 Blood Culture - Preliminary Blood
[2023-07-17] MEDS ORDERED: IPRATROPIUM-ALBUTEROL 3 ML NEB INHALATION PRN (16:13)
[2023-07-17 17:56] LABS: Glucose,Whole Blood 110 mg/dL (70-110)
--- NOTE | 2023-07-17 20:19 | P.PN ---
Subjective Progress Note Date: 07/17/23 07/17/2023 Patient evaluated today in the intensive care unit. Remains intubated and sedated. Status post cardiac catheterization with stenting performed to the LAD and RCA. Remains on dual antiplatelet therapy with aspirin and brilinta. Currently receiving IV propofol. Labs today reveal hemoglobin of 6.8, wbc 14.3. Renal function WNL. Chest xray today reveals patchy bibasilar opacities appear to be slightly increased particularly in the retrocardiac region. Unable to complete a review of systems as patient is currently intubated and sedated on the mechanical ventilator PHYSICAL EXAMINATION: GENERAL: The patient is alert and oriented x0, not in any acute distress. Intubated and sedated. Well developed, well nourished. Sedated. HEENT: Pupils are round and equally reacting to light. EOMI. No scleral icterus. No conjunctival pallor. Normocephalic, atraumatic. No pharyngeal erythema. No thyromegaly. CARDIOVASCULAR: S1 and S2 present. No murmurs, rubs, or gallops. PULMONARY: Chest is clear to auscultation, no wheezing or crackles. ABDOMEN: Soft, nontender, nondistended, normoactive bowel sounds. No palpable organomegaly. MUSCULOSKELETAL: No joint swelling or deformity. EXTREMITIES: No cyanosis, clubbing, or pedal edema. NEUROLOGICAL: Unable to asses pt is sedated SKIN: No rashes. Assessment and plan Cardiac arrest/V-fib/Torsades Acute coronary syndrome Status post PCI of the LAD and RCA and known chronic total occlusion of the left circumflex Paroxysmal atrial fibrillation and currently is in normal sinus mechanism Acute hypoxic respiratory failure Anemia r/o iron deficiency with 1 unit of PRBC given today. Hypokalemia normalized. Leukocytosis possibly reactive rule out source of infection, Hx of hypertension Gastroesophageal reflux disease hx. GI prophylaxis DVT prophylaxis mechanical prophylaxis due to the anemia. Status post 1 unit PRBC today and repeat CBC/BMP in the AM. Continue telemetry monitoring Continue vent management per ICU S/p cardiac cath with Successful stenting of proximal LAD, Successful stenting of the mid RCA Continue aspirin, Brilinta Continue IV Rocephin check procalcitonin level, cultures negative so far. Continue Lipitor Continue breathing treatments Cardiology, pulmonary java websphere developer following. The impression and plan of care has been dictated by Mary Herron, Nurse Practitioner as directed. Dr. Sheyla MD I have performed a history and physical examination and medical decision making of this patient, discussed the same with the dictator, and agree with the dictators assessment and plan as written, documented as a scribe. Based on total visit time, I have performed more than 50% of this visit. Objective - Vital Signs Vital signs: Vital Signs Temp 98.4 F 07/17/23 12:00 Pulse 87 07/17/23 15:00 Resp 21 07/17/23 15:00 BP 132/52 07/17/23 09:24 Pulse Ox 99 07/17/23 15:00 FiO2 30 07/17/23 12:04 Intake & Output 07/16/23 07/17/23 07/17/23 18:59 06:59 18:59 Intake Total 6877.249 7492.082 1209.997 Output Total 872 810 555 Balance 266.483 753.082 654.997 Weight 64.864 kg 64.864 kg Intake: IV 825 1000 75 Magnesium Sulfate-D5w Pmx 100 1 gm In Dextrose/Water 1 100ml.bag @ 100 mls/hr IVPB ONCE ONE Rx#: [id number] Sodium Chloride 0.9% 1, 825 900 75 000 ml In Empty Bag 1 bag @ 75 mls/hr IV .[id number] [facility] Rx#:[id number] Intake, IV Titration 293.483 353.082 798.997 Amount Norepinephrine 4 mg In 17.379 91.358 32.251 Sodium Chloride 0.9% 250 ml @ 0.03 MCG/KG/MIN 7. 414 mls/hr IV .Q24H [facility] Rx#:[id number] Sodium Chloride 0.9% 1, 600 000 ml @ 75 mls/hr IV . [id number] [facility] Rx#:[id number] cefTRIAXone 1 gm In 100 Sodium Chloride 0.9% 50 ml @ 100 mls/hr IVPB Q24HR [facility] Rx#:[id number] propofoL 1,000 mg In 276.104 261.724 66.746 Empty Bag 1 bag @ 15 MCG/ KG/MIN 5.838 mls/hr IV . Q17H8M [facility] Rx#:[id number] Tube Feeding 20 120 30 Blood Product 276 Rc Pheresis As-3 Unit 276 [id number] Other 90 30 Output: Gastric Drainage 200 Urine 672 810 555 Other: Voiding Method Indwelling Catheter Indwelling Catheter Indwelling Catheter ABP, PAP, CO, CI - Last Documented Arterial Blood Pressure 148/55 - Labs CBC & Chem 7: 07/17/23 04:45 07/17/23 09:22 Labs: Abnormal Lab Results - Last 24 Hours (Table) 07/15/23 07/16/23 07/16/23 Range/Units 22:30 17:51 17:53 WBC (3.8-10.6) k/uL RBC (3.80-5.40) m/uL Hgb (11.4-16.0) gm/dL Hct (34.0-46.0) % Neutrophils # (1.3-7.7) k/uL ABG pCO2 (35-45) mmHg ABG pO2 (83-108) mmHg ABG HCO3 (21-25) mmol/L ABG O2 Saturation (94-97) % Chloride (98-107) mmol/L Carbon Dioxide (22-30) mmol/L Glucose (74-99) mg/dL POC Glucose (mg/dL) 169 H (70-110) mg/dL Calcium (8.4-10.2) mg/dL Troponin I 6.880 H* (0.000-0.034) ng/mL Crossmatch See Detail 07/16/23 07/17/23 07/17/23 Range/Units 23:57 04:45 04:45 WBC 14.3 H (3.8-10.6) k/uL RBC 2.48 L (3.80-5.40) m/uL Hgb 6.8 L* D (11.4-16.0) gm/dL Hct 21.3 L (34.0-46.0) % Neutrophils # 11.9 H (1.3-7.7) k/uL ABG pCO2 (35-45) mmHg ABG pO2 (83-108) mmHg ABG HCO3 (21-25) mmol/L ABG O2 Saturation (94-97) % Chloride 116 H (98-107) mmol/L Carbon Dioxide 16 L (22-30) mmol/L Glucose 143 H (74-99) mg/dL POC Glucose (mg/dL) 180 H (70-110) mg/dL Calcium 7.8 L (8.4-10.2) mg/dL Troponin I (0.000-0.034) ng/mL Crossmatch 07/17/23 07/17/23 07/17/23 Range/Units 05:42 05:43 11:58 WBC (3.8-10.6) k/uL RBC (3.80-5.40) m/uL Hgb (11.4-16.0) gm/dL Hct (34.0-46.0) % Neutrophils # (1.3-7.7) k/uL ABG pCO2 27 L (35-45) mmHg ABG pO2 132 H (83-108) mmHg ABG HCO3 18 L (21-25) mmol/L ABG O2 Saturation 99.9 H (94-97) % Chloride (98-107) mmol/L Carbon Dioxide (22-30) mmol/L Glucose (74-99) mg/dL POC Glucose (mg/dL) 152 H 138 H (70-110) mg/dL Calcium (8.4-10.2) mg/dL Troponin I (0.000-0.034) ng/mL Crossmatch Microbiology - Last 24 Hours (Table) 07/15/23 17:01 Gram Stain - Final Sputum Sputum Culture - Final 07/15/23 18:56 Blood Culture - Preliminary Blood 07/15/23 18:40 Blood Culture - Preliminary Blood Assessment and Plan Time with Patient: Less than 30
[2023-07-17] MEDS: IPRATROPIUM-ALBUTEROL 3 ML NEB INHALATION SCH (20:20)
[2023-07-17 20:46] LABS: Glucose,Whole Blood 110 mg/dL (70-110)
[2023-07-18] MEDS: MELATONIN 5 MG TABLET PO SCH (00:46)
[2023-07-18 05:50] LABS: Glucose,Whole Blood 96 mg/dL (70-110)
[2023-07-18 05:51] LABS: Basophils # (A) 0.1 k/uL (0-0.2); Basophils % (A) 0 %; Eosinophils # (A) 0.2 k/uL (0-0.7); Eosinophils % (A) 2 %; HCT 23.7 % (34.0-46.0); HGB 7.6 gm/dL (11.4-16.0); Hypochromasia Moderate; Lymphocytes # (A) 2.2 k/uL (1.0-4.8); Lymphocytes % (A) 17 %; MCH 27.7 pg (25.0-35.0); MCV 86.6 fL (80.0-100.0); Mean Platelet Volume 6.9; Monocytes # (A) 0.6 k/uL (0-1.0); Monocytes % (A) 5 %; Neutrophils # (A) 9.5 k/uL (1.3-7.7); Neutrophils % (A) 75 %; Platelet Count 347 k/uL (150-450); Poikilocytosis Moderate; RBC 2.74 m/uL (3.80-5.40); RDW 14.3 % (11.5-15.5); WBC 12.7 k/uL (3.8-10.6)
[2023-07-18 06:03] LABS: African American GFR (CKD) 84 (>60 ml/min/1.73 sqM); Anion Gap 2 mmol/L; Blood Urea Nitrogen 15 mg/dL (7-17); Calcium 7.7 mg/dL (8.4-10.2); Carbon Dioxide 20 mmol/L (22-30); Chloride 119 mmol/L (98-107); Glucose 93 mg/dL (74-99); Non-African American GFR(CKD) 73 (>60 ml/min/1.73 sqM); Potassium 3.5 mmol/L (3.5-5.1); Sodium 141 mmol/L (137-145)
[2023-07-18] MEDS: POTASSIUM CHLORIDE ER 20 MEQ TAB.ER PO SCH (08:53)
--- NOTE | 2023-07-18 10:57 | XR ---
EXAMINATION TYPE: XR chest 1V portable DATE OF EXAM: 07/18/2023 Comparison: 07/17/2023 Clinical History: 72-year-old female right basilar infiltrate Findings: Right IJ CVC tip appears to have further descended into the IVC. Heart borderline in size. Increasing patchy retrocardiac opacity. Impression: 1. Right IJ CVC tip appears to have descended further into the IVC, now below the level of the heart. 2. Increasing patchy infiltrate at the left base.
--- NOTE | 2023-07-18 11:06 | P.PN ---
Subjective Progress Note Date: 07/18/23 Principal diagnosis: Respiratory failure. This is a 72-year-old female known history of hypertension, GERD, presented to the ER yesterday with a chief complaint of not feeling well. Patient fell around Easter time, and since then she has not been active, mostly in bed, bedbound. Yesterday, the patient was brought in by a family member to the emergency room complaining of not feeling well, feeling weak and tired. In the emergency room, patient was found to be in atrial fibrillation with diffuse ST segment depression except for ST segment elevation in aVR, and cardiology was consulted. Cardiology suspected global ischemia or triple-vessel coronary artery disease. While in the ER, the patient had a nuclear fibrillation cardiac arrest. Patient became hypotensive, and according to the ER physician she had a torsades rhytm, patient had CPR for about 5 minutes with return of spontaneous circulation. In the meantime the patient was intubated, mechanically ventilated , she was given magnesium. And she was noted to become more hemodynamically stable. Patient had a CT angiogram of the chest showed showed no evidence of pulmonary embolism, CT of the brain showed no evidence of acute process. Plan the patient was seen by cardiology and she underwent cardiac catheterization. Underwent successful stenting of the proximal LAD successful stenting of the mid RCA attempted to balloon angioplasty of the left circumflex coronary artery. Patient was further stabilized in the cardiac Ceramist, and she was transferred later to the ICU. I was made aware of this patient last night, and I was made aware of her ventilator settings and ABG. And these were adjusted accordingly. I am seeing this patient this morning she is on assist-control rate of 16 tidal volume 400 FiO2 45% and PEEP of 5 ABG showed a pO2 of 118 pCO2 28 pH of 7.37. Hence her assist-control rate was cut down to 14 FiO2 cut down to 35%. Patient had low hemoglobin earlier this morning and she received a unit of packed RBCs for a hemoglobin of 6.2 and it is now 9.2. Patient is on propofol at 45 mcg/kg/min IV fluid 0.9 normal saline at 75 cc/h. Patient is receiving Dilaudid and Protonix. And she is also on dual therapy/antiplatelet therapy since she had stent placement. During my evaluation, nurses were concerned about no access in this patient she had 2 small peripheral lines and could not establish any more IV access. Hence I went ahead and placed a right IJ triple-lumen catheter and placed a left femoral arterial line. Orders were placed on the chart, and the plan is to keep the patient intubated, mechanically ventilated, will definitely address weaning and possibly extubation in the next 24 hours. According to the nurses she was earlier following simple instructions, but she was extremely restless and agitated. Progress note dated July 17, 2023. This is a patient who was seen in consultation yesterday. The patient was admitted on July 14, with a ventricular fibrillation arrest. She was intubated on the same day. She went to the catheterization laboratory on July 14, and had stents placed in the right coronary artery, and left anterior descending coronary artery. The patient remains on the ventilator. Ventilator settings include volume assist-control, rate 14, tidal volume 400, FiO2 35%, PEEP of 5. Blood gases show pO2 of 132, pCO2 of 27, and a pH of 7.43. The patient is on saline at 75 cc an hour, propofol at 45 mcg/kg/min, norepinephrine at 2 mcg/min, and vital AF at 10 cc an hour. She has received a total of 2 units of packed red blood cells. Today, we are going to do a daily interruption of sedation and a spontaneous breathing trial, on pressure support of 5 and CPAP of 5. White count 14.3, hemoglobin 6.8, hematocrit 21.3, and platelet count normal. Sodium 140, potassium 3.6, chlorides 116, CO2 16, BUN 14, creatinine 0.96. Glucose 152. Calcium 7.8. Magnesium was 2.0. Blood and sputum sampling thus far is negative. Chest x-ray shows some patchy bibasilar infiltrates. Progress note dated July 18, 2023. This is a patient who was seen in consultation July 16, 2023. The patient was admitted on July 14, with a ventricular fibrillation arrest. She was intubated on the same day. She went to the catheterization laboratory on July 14, and had stents placed in the right coronary artery, and left anterior descending c oronary artery. Yesterday, the patient was given a trial of spontaneous breathing, on pressure support of 5 and CPAP of 5. The patient had excellent weaning parameters, good RSBI, and a positive cuff leak. She was awake and alert, and the patient was extubated, on July 16. Currently, she is on 2 L of oxygen, she is getting saline at 75 cc an hour. Currently, white count 12.7, hemoglobin 7.6, hematocrit 23.7, and platelet count normal. Sodium 141, potassium 3.5, chlorides 119, CO2 20, BUN 15, and creatinine 0.81. Procalcitonin level is 0.54. Calcium is 7.7. Glucose 96. Blood and sputum cultures are thus far negative. Chest x-ray shows some patchy infiltrate at the left base. Objective - Vital Signs Vital signs: Vital Signs Temp 97.9 F 07/18/23 08:00 Pulse 81 07/18/23 10:00 Resp 17 07/18/23 10:00 BP 136/76 07/18/23 10:00 Pulse Ox 100 07/18/23 10:00 FiO2 30 07/17/23 12:04 Intake & Output 07/17/23 07/18/23 07/18/23 18:59 06:59 18:59 Intake Total 0252.207 4729 550 Output Total 685 350 0 Balance 749.997 750 550 Weight 64.864 kg Intake: IV 75 825 300 Sodium Chloride 0.9% 1, 375 300 000 ml @ 75 mls/hr IV . [id number] [facility] Rx#:[id number] Sodium Chloride 0.9% 1, 75 450 000 ml In Empty Bag 1 bag @ 75 mls/hr IV .[id number] [facility] Rx#:[id number] Intake, IV Titration 1023.997 75 Amount Norepinephrine 4 mg In 32.251 Sodium Chloride 0.9% 250 ml @ 0.03 MCG/KG/MIN 7. 414 mls/hr IV .Q24H [facility] Rx#:[id number] Sodium Chloride 0.9% 1, 825 75 000 ml @ 75 mls/hr IV . [id number] [facility] Rx#:[id number] cefTRIAXone 1 gm In 100 Sodium Chloride 0.9% 50 ml @ 100 mls/hr IVPB Q24HR [facility] Rx#:[id number] propofoL 1,000 mg In 66.746 Empty Bag 1 bag @ 15 MCG/ KG/MIN 5.838 mls/hr IV . [id number] [facility] Rx#:[id number] Oral 200 250 Tube Feeding 30 Blood Product 276 Rc Pheresis As-3 Unit 276 [id number] Other 30 Output: Urine 685 350 0 Other: Voiding Method Indwelling Catheter Indwelling Catheter ABP, PAP, CO, CI - Last Documented Arterial Blood Pressure 150/54 - Exam No acute distress, extubated, currently on nasal O2 at 2 L. No respiratory distress. HEENT examination is grossly unremarkable. Neck supple. Full range of motion. No adenopathy thyromegaly or neck vein distention. Cardiovascular examination reveals regular rhythm rate. S1-S2 normal. No S3 or S4. No discernible murmur noted. Heart rate 81 bpm. Lungs reveal scattered bilateral rhonchi. No wheezes or crackles. Breath sounds equal. 2 L saturations are 100%. Abdomen soft with bowel sounds. No masses or tenderness. Extremities are intact. No cyanosis clubbing or edema. Skin is without rash or lesion. Neurologic examination is brief but nonfocal. - Labs CBC & Chem 7: 07/18/23 05:25 07/18/23 05:25 Labs: Abnormal Lab Results - Last 24 Hours (Table) 07/17/23 07/18/23 07/18/23 Range/Units 11:58 05:25 05:25 WBC 12.7 H (3.8-10.6) k/uL RBC 2.74 L (3.80-5.40) m/uL Hgb 7.6 L (11.4-16.0) gm/dL Hct 23.7 L (34.0-46.0) % Neutrophils # 9.5 H (1.3-7.7) k/uL Chloride (98-107) mmol/L Carbon Dioxide (22-30) mmol/L POC Glucose (mg/dL) 138 H (70-110) mg/dL Calcium (8.4-10.2) mg/dL Procalcitonin 0.54 H (0.02-0.09) ng/mL 07/18/23 Range/Units 05:25 WBC (3.8-10.6) k/uL RBC (3.80-5.40) m/uL Hgb (11.4-16.0) gm/dL Hct (34.0-46.0) % Neutrophils # (1.3-7.7) k/uL Chloride 119 H (98-107) mmol/L Carbon Dioxide 20 L (22-30) mmol/L POC Glucose (mg/dL) (70-110) mg/dL Calcium 7.7 L (8.4-10.2) mg/dL Procalcitonin (0.02-0.09) ng/mL Microbiology - Last 24 Hours (Table) 07/15/23 18:56 Blood Culture - Preliminary Blood 07/15/23 18:40 Blood Culture - Preliminary Blood 07/15/23 17:01 Gram Stain - Final Sputum Sputum Culture - Final Assessment and Plan Assessment: S/P cardiopulmonary arrest, July 15, 2023, with intubation and mechanical ventilation on the same day. Acute coronary syndrome, S/P cardiac catheterization on July 14, with stenting of the LAD and RCA. S/P successful extubation, on July 17, 2023. Acute hypoxemic respiratory failure. Anemia. Possible UTI. Paroxysmal atrial fibrillation. History of hypertension. History of gastroesophageal reflux disease. Plan: Plan dated July 17, 2023. The patient sedation will be held, and we will attempt a spontaneous breathing trial. We do make some ventilator settings, dropping the tidal volume from 400 down to 350, and dropping the FiO2 from 35%, down to 30%. Additional recommendations and suggestions are forthcoming. Labs, x-rays, and medications are reviewed. Hopefully, we will be able to move towards weaning and extubation. We will continue to follow make recommendations along the way. Prognosis is certainly guarded. Plan dated July 18, 2023. The patient was successfully extubated yesterday. We continue to watch her in t intensive care unit. She appears much better clinically, and labs, x-rays, and all medications are reviewed. We will continue to follow the patient, make recommendations along the way. She continues on saline at 75 cc an hour. Additional recommendations and suggestions are forthcoming. Prognosis is certainly still very guarded Time with Patient: Greater than 30
[2023-07-18 12:19] LABS: Glucose,Whole Blood 123 mg/dL (70-110)
[2023-07-18] MEDS: ACETAMINOPHEN TAB 325 MG TAB PO PRN (13:08)
--- NOTE | 2023-07-18 14:48 | P.PN ---
Subjective Progress Note Date: 07/18/23 07/17/2023 Patient evaluated today in the intensive care unit. Remains intubated and sedated. Status post cardiac catheterization with stenting performed to the LAD and RCA. Remains on dual antiplatelet therapy with aspirin and brilinta. Currently receiving IV propofol. Labs today reveal hemoglobin of 6.8, wbc 14.3. Renal function WNL. Chest xray today reveals patchy bibasilar opacities appear to be slightly increased particularly in the retrocardiac region. 07/18/2023 Patient is evaluated in follow up today in the intensive care unit. Patient was successfully extubated yesterday and currently requiring 2 L of oxygen. Patients main complaint today is shortness of breath and difficulty with deep inspiration she is also complaining of cough which is bronchospastic. Chest xray today reveals increasing patchy infiltrate at the left base. WBC is 12.7, hgb 7.6, renal function remains WNL. Procalcitonin is elevated at 0.54. Continues on IV ceftriaxone. Review of Systems Constitutional: Denied any fatigue denied any fever. Cardio vascular: denied any chest pain, palpitations Gastrointestinal: denied any nausea, vomiting, diarrhea Pulmonary: Reports shortness of breath and cough. Neurologic denied any new focal deficits All inpatient medications were reviewed and appropriate changes in these medications as dictated in the interval history and assessment and plan. PHYSICAL EXAMINATION: GENERAL: The patient is alert and oriented x3, not in any acute distress. Well developed, well nourished. HEENT: Pupils are round and equally reacting to light. EOMI. No scleral icterus. No conjunctival pallor. Normocephalic, atraumatic. No pharyngeal erythema. No thyromegaly. CARDIOVASCULAR: S1 and S2 present. No murmurs, rubs, or gallops. PULMONARY: Chest is clear to auscultation, no wheezing or crackles. lungs are diminished. ABDOMEN: Soft, nontender, nondistended, normoactive bowel sounds. No palpable organomegaly. MUSCULOSKELETAL: No joint swelling or deformity. EXTREMITIES: No cyanosis, clubbing, or pedal edema. NEUROLOGICAL: Gross neurological examination did not reveal any focal deficits. SKIN: No rashes. Assessment and plan Cardiac arrest/V-fib/Torsades Acute coronary syndrome Status post PCI of the LAD and RCA and known chronic total occlusion of the left circumflex Paroxysmal atrial fibrillation and currently is in normal sinus mechanism Acute hypoxic respiratory failure Anemia r/o iron deficiency hgb improved s/p 1 unit of prbc. Hypokalemia normalized. Leukocytosis possibly reactive Abnormal urinalysis urine culture pending continue on IV ceftriaxone for now. Hx of hypertension Gastroesophageal reflux disease hx. GI prophylaxis DVT prophylaxis mechanical prophylaxis due to the anemia. Full Code Plan Continue telemetry monitoring Patient to be monitored close in the ICU post extubation S/p cardiac cath with Successful stenting of proximal LAD, Successful stenting of the mid RCA Continue aspirin, Brilinta Continue IV Rocephin procalcitonin level mildly elevated Tessalonpatriceitussin added for the cough Order incentive spirometer Continue Lipitor Continue breathing treatments Cardiology, pulmonary upholstery sewer following. PT/OT consultation Repeat labs in AM. The impression and plan of care has been dictated by Mary Herron, Nurse Practitioner as directed. Dr. Sheyla MD I have performed a history and physical examination and medical decision making of this patient, discussed the same with the dictator, and agree with the dictators assessment and plan as written, documented as a scribe. Based on total visit time, I have performed more than 50% of this visit. Objective - Vital Signs Vital signs: Vital Signs Temp 97.8 F 07/18/23 12:00 Pulse 72 07/18/23 12:00 Resp 24 07/18/23 12:00 BP 153/80 07/18/23 12:00 Pulse Ox 96 07/18/23 12:00 FiO2 30 07/17/23 12:04 Intake & Output 07/17/23 07/18/23 07/18/23 18:59 06:59 18:59 Intake Total 2238.869 0571 550 Output Total 685 350 0 Balance 749.997 750 550 Weight 64.864 kg 64.864 kg Intake: IV 75 825 300 Sodium Chloride 0.9% 1, 375 300 000 ml @ 75 mls/hr IV . [id number] [facility] Rx#:[id number] Sodium Chloride 0.9% 1, 75 450 000 ml In Empty Bag 1 bag @ 75 mls/hr IV .[id number] [facility] Rx#:[id number] Intake, IV Titration 1023.997 75 Amount Norepinephrine 4 mg In 32.251 Sodium Chloride 0.9% 250 ml @ 0.03 MCG/KG/MIN 7. 414 mls/hr IV .Q24H [facility] Rx#:[id number] Sodium Chloride 0.9% 1, 825 75 000 ml @ 75 mls/hr IV . [id number] [facility] Rx#:[id number] cefTRIAXone 1 gm In 100 Sodium Chloride 0.9% 50 ml @ 100 mls/hr IVPB Q24HR [facility] Rx#:[id number] propofoL 1,000 mg In 66.746 Empty Bag 1 bag @ 15 MCG/ KG/MIN 5.838 mls/hr IV . [id number] [facility] Rx#:[id number] Oral 200 250 Tube Feeding 30 Blood Product 276 Rc Pheresis As-3 Unit 276 [id number] Other 30 Output: Urine 685 350 0 Other: Voiding Method Indwelling Catheter Indwelling Catheter ABP, PAP, CO, CI - Last Documented Arterial Blood Pressure 150/54 - Labs CBC & Chem 7: 07/18/23 05:25 07/18/23 13:15 Labs: Abnormal Lab Results - Last 24 Hours (Table) 07/18/23 07/18/23 07/18/23 Range/Units 05:25 05:25 05:25 WBC 12.7 H (3.8-10.6) k/uL RBC 2.74 L (3.80-5.40) m/uL Hgb 7.6 L (11.4-16.0) gm/dL Hct 23.7 L (34.0-46.0) % Neutrophils # 9.5 H (1.3-7.7) k/uL Chloride 119 H (98-107) mmol/L Carbon Dioxide 20 L (22-30) mmol/L POC Glucose (mg/dL) (70-110) mg/dL Calcium 7.7 L (8.4-10.2) mg/dL Procalcitonin 0.54 H (0.02-0.09) ng/mL 07/18/23 Range/Units 12:17 WBC (3.8-10.6) k/uL RBC (3.80-5.40) m/uL Hgb (11.4-16.0) gm/dL Hct (34.0-46.0) % Neutrophils # (1.3-7.7) k/uL Chloride (98-107) mmol/L Carbon Dioxide (22-30) mmol/L POC Glucose (mg/dL) 123 H (70-110) mg/dL Calcium (8.4-10.2) mg/dL Procalcitonin (0.02-0.09) ng/mL Microbiology - Last 24 Hours (Table) 07/15/23 18:56 Blood Culture - Preliminary Blood 07/15/23 18:40 Blood Culture - Preliminary Blood 07/15/23 17:01 Gram Stain - Final Sputum Sputum Culture - Final Assessment and Plan Time with Patient: Less than 30
[2023-07-18] MEDS: BENZONATATE 100 MG CAP PO PRN (15:16)
[2023-07-18 16:50] LABS: Glucose,Whole Blood 94 mg/dL (70-110)
[2023-07-18 20:49] LABS: Glucose,Whole Blood 112 mg/dL (70-110)
[2023-07-18 23:37] LABS: Glucose,Whole Blood 105 mg/dL (70-110)
[2023-07-19 05:54] LABS: Glucose,Whole Blood 111 mg/dL (70-110)
[2023-07-19 07:03] LABS: Basophils % (A) 0 %; Eosinophils # (A) 0.3 k/uL (0-0.7); Eosinophils % (A) 3 %; HCT 25.5 % (34.0-46.0); HGB 7.9 gm/dL (11.4-16.0); Hypochromasia Marked; Lymphocytes # (A) 1.2 k/uL (1.0-4.8); Lymphocytes % (A) 12 %; MCH 27.7 pg (25.0-35.0); MCHC 31.2 g/dL (31.0-37.0); MCV 88.8 fL (80.0-100.0); Monocytes # (A) 0.4 k/uL (0-1.0); Monocytes % (A) 4 %; Neutrophils # (A) 7.9 k/uL (1.3-7.7); Neutrophils % (A) 80 %; Platelet Count 390 k/uL (150-450); Poikilocytosis Moderate; RBC 2.87 m/uL (3.80-5.40); RDW 14.7 % (11.5-15.5); WBC 9.9 k/uL (3.8-10.6)
[2023-07-19 07:26] LABS: African American GFR (CKD) >90 (>60 ml/min/1.73 sqM); Anion Gap 3 mmol/L; Blood Urea Nitrogen 13 mg/dL (7-17); Calcium 8.1 mg/dL (8.4-10.2); Carbon Dioxide 18 mmol/L (22-30); Chloride 117 mmol/L (98-107); Glucose 102 mg/dL (74-99); Non-African American GFR(CKD) 84 (>60 ml/min/1.73 sqM); Potassium 4.2 mmol/L (3.5-5.1); Sodium 138 mmol/L (137-145)
[2023-07-19 11:42] LABS: Glucose,Whole Blood 104 mg/dL (70-110)
--- NOTE | 2023-07-19 13:47 | P.PN ---
Subjective Progress Note Date: 07/19/23 Principal diagnosis: Respiratory failure. This is a 72-year-old female known history of hypertension, GERD, presented to the ER yesterday with a chief complaint of not feeling well. Patient fell around Easter time, and since then she has not been active, mostly in bed, bedbound. Yesterday, the patient was brought in by a family member to the emergency room complaining of not feeling well, feeling weak and tired. In the emergency room, patient was found to be in atrial fibrillation with diffuse ST segment depression except for ST segment elevation in aVR, and cardiology was consulted. Cardiology suspected global ischemia or triple-vessel coronary artery disease. While in the ER, the patient had a nuclear fibrillation cardiac arrest. Patient became hypotensive, and according to the ER physician she had a torsades rhytm, patient had CPR for about 5 minutes with return of spontaneous circulation. In the meantime the patient was intubated, mechanically ventilated , she was given magnesium. And she was noted to become more hemodynamically stable. Patient had a CT angiogram of the chest showed showed no evidence of pulmonary embolism, CT of the brain showed no evidence of acute process. Plan the patient was seen by cardiology and she underwent cardiac catheterization. Underwent successful stenting of the proximal LAD successful stenting of the mid RCA attempted to balloon angioplasty of the left circumflex coronary artery. Patient was further stabilized in the cardiac [employer], and she was transferred later to the ICU. I was made aware of this patient last night, and I was made aware of her ventilator settings and ABG. And these were adjusted accordingly. I am seeing this patient this morning she is on assist-control rate of 16 tidal volume 400 FiO2 45% and PEEP of 5 ABG showed a pO2 of 118 pCO2 28 pH of 7.37. Hence her assist-control rate was cut down to 14 FiO2 cut down to 35%. Patient had low hemoglobin earlier this morning and she received a unit of packed RBCs for a hemoglobin of 6.2 and it is now 9.2. Patient is on propofol at 45 mcg/kg/min IV fluid 0.9 normal saline at 75 cc/h. Patient is receiving Dilaudid and Protonix. And she is also on dual therapy/antiplatelet therapy since she had stent placement. During my evaluation, nurses were concerned about no access in this patient she had 2 small peripheral lines and could not establish any more IV access. Hence I went ahead and placed a right IJ triple-lumen catheter and placed a left femoral arterial line. Orders were placed on the chart, and the plan is to keep the patient intubated, mechanically ventilated, will definitely address weaning and possibly extubation in the next 24 hours. According to the nurses she was earlier following simple instructions, but she was extremely restless and agitated. Progress note dated July 17, 2023. This is a patient who was seen in consultation yesterday. The patient was admitted on July 14, with a ventricular fibrillation arrest. She was intubated on the same day. She went to the catheterization laboratory on July 14, and had stents placed in the right coronary artery, and left anterior descending coronary artery. The patient remains on the ventilator. Ventilator settings include volume assist-control, rate 14, tidal volume 400, FiO2 35%, PEEP of 5. Blood gases show pO2 of 132, pCO2 of 27, and a pH of 7.43. The patient is on saline at 75 cc an hour, propofol at 45 mcg/kg/min, norepinephrine at 2 mcg/min, and vital AF at 10 cc an hour. She has received a total of 2 units of packed red blood cells. Today, we are going to do a daily interruption of sedation and a spontaneous breathing trial, on pressure support of 5 and CPAP of 5. White count 14.3, hemoglobin 6.8, hematocrit 21.3, and platelet count normal. Sodium 140, potassium 3.6, chlorides 116, CO2 16, BUN 14, creatinine 0.96. Glucose 152. Calcium 7.8. Magnesium was 2.0. Blood and sputum sampling thus far is negative. Chest x-ray shows some patchy bibasilar infiltrates. Progress note dated July 18, 2023. This is a patient who was seen in consultation July 16, 2023. The patient was admitted on July 14, with a ventricular fibrillation arrest. She was intubated on the same day. She went to the catheterization laboratory on July 14, and had stents placed in the right coronary artery, and left anterior descending c oronary artery. Yesterday, the patient was given a trial of spontaneous breathing, on pressure support of 5 and CPAP of 5. The patient had excellent weaning parameters, good RSBI, and a positive cuff leak. She was awake and alert, and the patient was extubated, on July 16. Currently, she is on 2 L of oxygen, she is getting saline at 75 cc an hour. Currently, white count 12.7, hemoglobin 7.6, hematocrit 23.7, and platelet count normal. Sodium 141, potassium 3.5, chlorides 119, CO2 20, BUN 15, and creatinine 0.81. Procalcitonin level is 0.54. Calcium is 7.7. Glucose 96. Blood and sputum cultures are thus far negative. Chest x-ray shows some patchy infiltrate at the left base. Progress note dated July 19, 2023. 72-year-old female admitted initially for a cardiopulmonary arrest, secondary to ventricular fibrillation. The patient is seen today in room 358. He is doing well. She is on 2 L of oxygen. The patient is not receiving any IV fluids. The patient continues on Rocephin. Current labs include a white count 9.9, hemoglobin 7.9, hematocrit 25.5, and a normal platelet count. Sodium 138, potassium 4.2, chlorides 117, carbon dioxide 18, anion gap 3, BUN 13, creatinine 0.72. Glucose is 84. Calcium is 8.1. Blood and sputum sampling thus far is negative. Chest x-ray shows a patchy density at the left base. Objective - Vital Signs Vital signs: Vital Signs Temp 97.8 F 07/19/23 07:50 Pulse 66 07/19/23 11:30 Resp 18 07/19/23 11:30 BP 168/89 07/19/23 11:23 Pulse Ox 100 07/19/23 11:23 FiO2 30 07/17/23 12:04 Intake & Output 07/18/23 07/19/23 07/19/23 18:59 06:59 18:59 Intake Total 550 480 Output Total 350 Balance 200 480 Weight 64.864 kg Intake: IV 300 Sodium Chloride 0.9% 1, 300 000 ml @ 75 mls/hr IV . [id number] [facility] Rx#:[id number] Oral 250 480 Output: Urine 350 Other: Voiding Method Bedside Commode Bedside Commode Bedpan Bedpan # Voids 2 ABP, PAP, CO, CI - Last Documented Arterial Blood Pressure 150/54 - Exam No acute distress, extubated, currently on nasal O2 at 2 L. No respiratory distress. HEENT examination is grossly unremarkable. Neck supple. Full range of motion. No adenopathy thyromegaly or neck vein distention. Cardiovascular examination reveals regular rhythm rate. S1-S2 normal. No S3 or S4. No discernible murmur noted. Heart rate 66 bpm. Lungs reveal scattered bilateral rhonchi. No wheezes or crackles. Breath sounds equal. 2 L saturations are 100%. Abdomen soft with bowel sounds. No masses or tenderness. Extremities are intact. No cyanosis clubbing or edema. Skin is without rash or lesion. Neurologic examination is brief but nonfocal. - Labs CBC & Chem 7: 07/19/23 06:38 07/19/23 06:38 Labs: Abnormal Lab Results - Last 24 Hours (Table) 07/18/23 07/19/23 07/19/23 Range/Units 20:40 05:46 06:38 RBC 2.87 L (3.80-5.40) m/uL Hgb 7.9 L (11.4-16.0) gm/dL Hct 25.5 L (34.0-46.0) % Neutrophils # 7.9 H (1.3-7.7) k/uL Chloride (98-107) mmol/L Carbon Dioxide (22-30) mmol/L Glucose (74-99) mg/dL POC Glucose (mg/dL) 112 H 111 H (70-110) mg/dL Calcium (8.4-10.2) mg/dL 07/19/23 Range/Units 06:38 RBC (3.80-5.40) m/uL Hgb (11.4-16.0) gm/dL Hct (34.0-46.0) % Neutrophils # (1.3-7.7) k/uL Chloride 117 H (98-107) mmol/L Carbon Dioxide 18 L (22-30) mmol/L Glucose 102 H (74-99) mg/dL POC Glucose (mg/dL) (70-110) mg/dL Calcium 8.1 L (8.4-10.2) mg/dL Microbiology - Last 24 Hours (Table) 07/15/23 18:56 Blood Culture - Preliminary Blood 07/15/23 18:40 Blood Culture - Preliminary Blood Assessment and Plan Assessment: S/P cardiopulmonary arrest, July 15, 2023, with intubation and mechanical ventilation on the same day. Acute coronary syndrome, S/P cardiac catheterization on July 14, with stenting of the LAD and RCA. S/P successful extubation, on July 17, 2023. Acute hypoxemic respiratory failure. Anemia. Possible UTI. Paroxysmal atrial fibrillation. History of hypertension. History of gastroesophageal reflux disease. Plan: Plan dated July 17, 2023. The patient sedation will be held, and we will attempt a spontaneous breathing trial. We do make some ventilator settings, dropping the tidal volume from 400 down to 350, and dropping the FiO2 from 35%, down to 30%. Additional recommendations and suggestions are forthcoming. Labs, x-rays, and medications are reviewed. Hopefully, we will be able to move towards weaning and extubation. We will continue to follow make recommendations along the way. Prognosis is certainly guarded. Plan dated July 18, 2023. The patient was successfully extubated yesterday. We continue to watch her in the intensive care unit. She appears much better clinically, and labs, x-rays, and all medications are reviewed. We will continue to follow the patient, make recommendations along the way. She continues on saline at 75 cc an hour. Additional recommendations and suggestions are forthcoming. Prognosis is certainly still very guarded Plan dated July 19, 2023. The patient is seen today in room 358. She is resting comfortably. She continues on oxygen at 2 L. She is not receiving any IV fluids. She continues on Rocephin. Labs, x-rays, and medications are reviewed. The patient's overall prognosis remains guarded. We will continue to follow the patient, make recommendations along the way. No additional comments at this time. Time with Patient: Less than 30
--- NOTE | 2023-07-19 14:33 | P.PN ---
Subjective Progress Note Date: 07/19/23 Acute coronary syndrome This is a 72-year-old female patient we are asked to see in the emergency room. The patient currently is intubated. The history was taken from the emergency room physician. Apparently the patient had a fall around Easter of this year and since then she has not been very active and she has been in bed. No details around the fall and no details if the patient lost her consciousness or no. She was brought by a family member to the emergency department because she was not feeling well she was feeling weak and tired and also she was experiencing some upper back discomfort felt to be from laying in bed. In the emergency department she underwent a workup including an EKG and that showed atrial fibrillation with diffuse ST segment depression except for ST segment elevation in aVR, finding concerning for global ischemia or triple-vessel coronary artery disease or left main coronary artery disease. Subsequently the patient went into cardiac arrest was ventricular fibrillation and she underwent a shock and she was brought back to normal sinus mechanism with an EKG showing diffuse ST segment depression but no clear-cut evidence of ST segment elevation on the EKG. The chest x-ray showed cardiomegaly. No other information are available at this point including any blood work results including CBC or BMP or any troponin or any creatinine. Currently the patient is intubated. She was given magnesium. She is hemodynamically stable. She was receiving sertraline as an outpatient. Beside that she does not have any history of coronary artery disease or congestive heart failure or any cardiac arrhythmia. Subsequently the patient underwent a CT scan of the brain which showed no acute abnormalities. She underwent a CTA of the chest also and that showed no evidence of pulmonary embolism. the examination revealed regular rhythm with a systolic murmur at the right upper sternal border with clear breathing sounds bilaterally and no edema in the lower extremities was noted. July 16, 2023 The patient was seen this morning. Currently she is intubated with a possible extubation in the next 24 hours according to the intensive care team. Hemodynamically she is stable and not on any vasopressors. Her hemoglobin last night came in to be below 7 and she received 1 unit of packed RBC and the last hemoglobin was above 9. She is on dual antiplatelet therapy along with beta- jose along with a statin. The echo still pending. the patient does not seems to be in any overt heart failure at this point. From the cardiovascular standpoint of view, I would continue the current medical regimen and continue following up with the echocardiogram and continue dual antiplatelet therapy. The examination revealed regular rhythm with a systolic murmur at the right upper sternal border with diminished breathing sounds bilaterally and no edema was noted in the lower extremities. 07/15 Patient seen and examined. Patient was extubated and currently on nasal ca nnula. She denies any chest pain or pressure. No significant arrhythmias noted on telemetry. Patient did have drop in hemoglobin again to 6.8 however no active bleeding. No significant hematoma noted at the femoral site. Echocardiogram showing EF 65% with moderate to severe mitral regurgitation as well as LVOT gradient. 07/17 Patient is seen today in follow-up on the cardiac stepdown unit. She denies having any shortness of breath no lower extremity edema. She states she has been ambulating in her room without any new symptoms. Patient is maintained on dual antiplatelet therapy along with statin. Blood pressure 168/89, heart rate in the 60s, pulse ox 100% on 2 L nasal cannula. Hemoglobin is 7.9 and iron studies will be ordered. Creatinine 0.72. Physical Examination Gen: This is a 72-year-old female in no acute distress HEENT: Head is atraumatic, normocephalic. Pupils equal, round. Sclerae is anicteric. LUNGS: Clear to auscultation. No wheezes or rhonchi. No intercostal re tractions. HEART: Regular rate and rhythm. Systolic murmur. EXTREMITIES: No pedal edema. No calf tenderness. NEUROLOGICAL: Patient is awake, alert and oriented x3. Assessment Acute coronary syndrome Status post PCI of the LAD and RCA and known chronic total occlusion of the left circumflex Cardiac arrest with ventricular fibrillation Paroxysmal atrial fibrillation and currently she is in normal sinus mechanism moderate to severe mitral regurgitation LVOT gradient Anemia status post blood transfusion Plan Continue the current medical regimen Continue monitor the hemoglobin Continue dual antiplatelet therapy along with a statin Consider adding oral anticoagulation once the hemoglobin is more stable and rule out any gastrointestinal bleeding. currently hemoglobin was still low and we w ill continue off of anticoagulation for now. Iron studies ordered. echo findings of LVOT gradient as well as moderate to severe mitral regurgitation however on exam no significant murmur. No family history of hypertrophic cardiomyopathy and V. fib appears more related to non-STEMI.patient was recently hypotensive on pressors however now borderline hypertensive. Nurse practitioner note has been reviewed, I agree with documented findings and plan of care. Patient was seen and examined. Objective - Vital Signs Vital signs: Vital Signs Temp 97.8 F 07/19/23 07:50 Pulse 66 07/19/23 11:30 Resp 18 07/19/23 11:30 BP 168/89 07/19/23 11:23 Pulse Ox 100 07/19/23 11:23 FiO2 30 07/17/23 12:04 Intake & Output 07/18/23 07/19/23 07/19/23 18:59 06:59 18:59 Intake Total 550 480 Output Total 350 Balance 200 480 Weight 64.864 kg Intake: IV 300 Sodium Chloride 0.9% 1, 300 000 ml @ 75 mls/hr IV . [id number] [facility] Rx#:[id number] Oral 250 480 Output: Urine 350 Other: Voiding Method Bedside Commode Bedside Commode Bedpan Bedpan # Voids 2 ABP, PAP, CO, CI - Last Documented Arterial Blood Pressure 150/54 - Labs CBC & Chem 7: 07/19/23 06:38 07/19/23 06:38 Labs: Abnormal Lab Results - Last 24 Hours (Table) 07/18/23 07/19/23 07/19/23 Range/Units 20:40 05:46 06:38 RBC 2.87 L (3.80-5.40) m/uL Hgb 7.9 L (11.4-16.0) gm/dL Hct 25.5 L (34.0-46.0) % Neutrophils # 7.9 H (1.3-7.7) k/uL Chloride (98-107) mmol/L Carbon Dioxide (22-30) mmol/L Glucose (74-99) mg/dL POC Glucose (mg/dL) 112 H 111 H (70-110) mg/dL Calcium (8.4-10.2) mg/dL 07/19/23 Range/Units 06:38 RBC (3.80-5.40) m/uL Hgb (11.4-16.0) gm/dL Hct (34.0-46.0) % Neutrophils # (1.3-7.7) k/uL Chloride 117 H (98-107) mmol/L Carbon Dioxide 18 L (22-30) mmol/L Glucose 102 H (74-99) mg/dL POC Glucose (mg/dL) (70-110) mg/dL Calcium 8.1 L (8.4-10.2) mg/dL Microbiology - Last 24 Hours (Table) 07/15/23 18:56 Blood Culture - Preliminary Blood 07/15/23 18:40 Blood Culture - Preliminary Blood
[2023-07-19 16:41] LABS: Glucose,Whole Blood 104 mg/dL (70-110)
[2023-07-19 19:23] LABS: % Iron Saturation 4.44 (12.00-45.00)
--- NOTE | 2023-07-19 19:29 | P.PN ---
Subjective Progress Note Date: 07/19/23 07/17/2023 Patient evaluated today in the intensive care unit. Remains intubated and sedated. Status post cardiac catheterization with stenting performed to the LAD and RCA. Remains on dual antiplatelet therapy with aspirin and brilinta. Currently receiving IV propofol. Labs today reveal hemoglobin of 6.8, wbc 14.3. Renal function WNL. Chest xray today reveals patchy bibasilar opacities appear to be slightly increased particularly in the retrocardiac region. 07/18/2023 Patient is evaluated in follow up today in the intensive care unit. Patient was successfully extubated yesterday and currently requiring 2 L of oxygen. Patients main complaint today is shortness of breath and difficulty with deep inspiration she is also complaining of cough which is bronchospastic. Chest xray today reveals increasing patchy infiltrate at the left base. WBC is 12.7, hgb 7.6, renal function remains WNL. Procalcitonin is elevated at 0.54. Continues on IV ceftriaxone. 07/19/2023 Patient evaluated today on the medical floor was downgraded from the ICU. Remains on 2L of oxygen. Less short of breath. Continues to report mild chest wall pain secondary to CPR. Urine culture, blood cultures and sputum culture are negative. Patient will complete 5 days of IV ceftriaxone. Review of Systems Constitutional: Denied any fatigue denied any fever. Cardio vascular: denied any chest pain, palpitations Gastrointestinal: denied any nausea, vomiting, diarrhea Pulmonary: Reports shortness of breath and cough. Neurologic denied any new focal deficits All inpatient medications were reviewed and appropriate changes in these medications as dictated in the interval history and assessment and plan. PHYSICAL EXAMINATION: GENERAL: The patient is alert and oriented x3, not in any acute distress. Well developed, well nourished. HEENT: Pupils are round and equally reacting to light. EOMI. No scleral icterus. No conjunctival pallor. Normocephalic, atraumatic. No pharyngeal erythema. No thyromegaly. CARDIOVASCULAR: S1 and S2 present. No murmurs, rubs, or gallops. PULMONARY: Chest is clear to auscultation, no wheezing or crackles. lungs are diminished. ABDOMEN: Soft, nontender, nondistended, normoactive bowel sounds. No palpable organomegaly. MUSCULOSKELETAL: No joint swelling or deformity. EXTREMITIES: No cyanosis, clubbing, or pedal edema. NEUROLOGICAL: Gross neurological examination did not reveal any focal deficits. SKIN: No rashes. Assessment and plan Cardiac arrest/V-fib/Torsades Acute coronary syndrome Status post PCI of the LAD and RCA and known chronic total occlusion of the left circumflex Paroxysmal atrial fibrillation and currently is in normal sinus mechanism Acute hypoxic respiratory failure Anemia r/o iron deficiency hgb improved s/p 1 unit of prbc. Hypokalemia normalized. Leukocytosis possibly reactive Abnormal urinalysis urine culture pending continue on IV ceftriaxone for now. Hx of hypertension Gastroesophageal reflux disease hx. GI prophylaxis DVT prophylaxis mechanical prophylaxis due to the anemia. Full Code Plan Continue telemetry monitoring S/p cardiac cath with Successful stenting of proximal LAD, Successful stenting of the mid RCA Continue aspirin, Brilinta Continue IV Rocephin procalcitonin level mildly elevated, after tomorrow dose ceftriaxone can be discontinued. Tessalon, robitussin added for the cough Order incentive spirometer Continue Lipitor Continue breathing treatments Cardiology, pulmonary health care recruiter following. PT/OT consultation recommending subacute rehab Repeat labs in AM/iron studies pending. The impression and plan of care has been dictated by Mary Herron, Nurse Practitioner as directed. Dr. Sheyla MD I have performed a history and physical examination and medical decision making of this patient, discussed the same with the dictator, and agree with the dictators assessment and plan as written, documented as a scribe. Based on total visit time, I have performed more than 50% of this visit. Objective - Vital Signs Vital signs: Vital Signs Temp 97.8 F 07/19/23 07:50 Pulse 66 07/19/23 11:30 Resp 18 07/19/23 11:30 BP 168/89 07/19/23 11:23 Pulse Ox 100 07/19/23 11:23 FiO2 30 07/17/23 12:04 Intake & Output 07/18/23 07/19/23 07/19/23 18:59 06:59 18:59 Intake Total 550 480 Output Total 350 Balance 200 480 Weight 64.864 kg Intake: IV 300 Sodium Chloride 0.9% 1, 300 000 ml @ 75 mls/hr IV . [id number] [facility] Rx#:[id number] Oral 250 480 Output: Urine 350 Other: Voiding Method Bedside Commode Bedside Commode Bedpan Bedpan # Voids 2 ABP, PAP, CO, CI - Last Documented Arterial Blood Pressure 150/54 - Labs CBC & Chem 7: 07/19/23 06:38 07/19/23 06:38 Labs: Abnormal Lab Results - Last 24 Hours (Table) 07/18/23 07/19/23 07/19/23 Range/Units 20:40 05:46 06:38 RBC 2.87 L (3.80-5.40) m/uL Hgb 7.9 L (11.4-16.0) gm/dL Hct 25.5 L (34.0-46.0) % Neutrophils # 7.9 H (1.3-7.7) k/uL Chloride (98-107) mmol/L Carbon Dioxide (22-30) mmol/L Glucose (74-99) mg/dL POC Glucose (mg/dL) 112 H 111 H (70-110) mg/dL Calcium (8.4-10.2) mg/dL 07/19/23 Range/Units 06:38 RBC (3.80-5.40) m/uL Hgb (11.4-16.0) gm/dL Hct (34.0-46.0) % Neutrophils # (1.3-7.7) k/uL Chloride 117 H (98-107) mmol/L Carbon Dioxide 18 L (22-30) mmol/L Glucose 102 H (74-99) mg/dL POC Glucose (mg/dL) (70-110) mg/dL Calcium 8.1 L (8.4-10.2) mg/dL Microbiology - Last 24 Hours (Table) 07/15/23 18:56 Blood Culture - Preliminary Blood 07/15/23 18:40 Blood Culture - Preliminary Blood Assessment and Plan Time with Patient: Less than 30
[2023-07-19 20:16] LABS: Glucose,Whole Blood 112 mg/dL (70-110)
[2023-07-20 06:06] LABS: Glucose,Whole Blood 112 mg/dL (70-110)
[2023-07-20 10:05] LABS: Basophils % (A) 0 %; Eosinophils # (A) 0.4 k/uL (0-0.7); Eosinophils % (A) 5 %; HGB 8.6 gm/dL (11.4-16.0); Hypochromasia Marked; Lymphocytes # (A) 1.8 k/uL (1.0-4.8); Lymphocytes % (A) 20 %; MCH 27.7 pg (25.0-35.0); MCHC 30.9 g/dL (31.0-37.0); MCV 89.7 fL (80.0-100.0); Monocytes # (A) 0.5 k/uL (0-1.0); Monocytes % (A) 6 %; Neutrophils # (A) 5.9 k/uL (1.3-7.7); Neutrophils % (A) 67 %; Platelet Count 437 k/uL (150-450); Poikilocytosis Slight; RBC 3.12 m/uL (3.80-5.40); RDW 14.5 % (11.5-15.5); WBC 8.8 k/uL (3.8-10.6)
[2023-07-20 10:33] LABS: African American GFR (CKD) >90 (>60 ml/min/1.73 sqM); Anion Gap 6 mmol/L; Blood Urea Nitrogen 15 mg/dL (7-17); Calcium 8.8 mg/dL (8.4-10.2); Carbon Dioxide 17 mmol/L (22-30); Chloride 115 mmol/L (98-107); Glucose 88 mg/dL (74-99); Non-African American GFR(CKD) 87 (>60 ml/min/1.73 sqM); Potassium 4.1 mmol/L (3.5-5.1); Sodium 138 mmol/L (137-145)
[2023-07-20] MEDS: SODIUM FERRIC GLUCONAT-SUCROSE 125 MG in SODIUM CHLORIDE 0.9% 100 ML IVPB SCH (11:41)
[2023-07-20 11:59] LABS: Glucose,Whole Blood 95 mg/dL (70-110)
--- NOTE | 2023-07-20 14:37 | P.PN ---
Subjective Progress Note Date: 07/20/23 Principal diagnosis: Respiratory failure. This is a 72-year-old female known history of hypertension, GERD, presented to the ER yesterday with a chief complaint of not feeling well. Patient fell around Easter time, and since then she has not been active, mostly in bed, bedbound. Yesterday, the patient was brought in by a family member to the emergency room complaining of not feeling well, feeling weak and tired. In the emergency room, patient was found to be in atrial fibrillation with diffuse ST segment depression except for ST segment elevation in aVR, and cardiology was consulted. Cardiology suspected global ischemia or triple-vessel coronary artery disease. While in the ER, the patient had a nuclear fibrillation cardiac arrest. Patient became hypotensive, and according to the ER physician she had a torsades rhytm, patient had CPR for about 5 minutes with return of spontaneous circulation. In the meantime the patient was intubated, mechanically ventilated , she was given magnesium. And she was noted to become more hemodynamically stable. Patient had a CT angiogram of the chest showed showed no evidence of pulmonary embolism, CT of the brain showed no evidence of acute process. Plan the patient was seen by cardiology and she underwent cardiac catheterization. Underwent successful stenting of the proximal LAD successful stenting of the mid RCA attempted to balloon angioplasty of the left circumflex coronary artery. Patient was further stabilized in the cardiac [employer], and she was transferred later to the ICU. I was made aware of this patient last night, and I was made aware of her ventilator settings and ABG. And these were adjusted accordingly. I am seeing this patient this morning she is on assist-control rate of 16 tidal volume 400 FiO2 45% and PEEP of 5 ABG showed a pO2 of 118 pCO2 28 pH of 7.37. Hence her assist-control rate was cut down to 14 FiO2 cut down to 35%. Patient had low hemoglobin earlier this morning and she received a unit of packed RBCs for a hemoglobin of 6.2 and it is now 9.2. Patient is on propofol at 45 mcg/kg/min IV fluid 0.9 normal saline at 75 cc/h. Patient is receiving Dilaudid and Protonix. And she is also on dual therapy/antiplatelet therapy since she had stent placement. During my evaluation, nurses were concerned about no access in this patient she had 2 small peripheral lines and could not establish any more IV access. Hence I went ahead and placed a right IJ triple-lumen catheter and placed a left femoral arterial line. Orders were placed on the chart, and the plan is to keep the patient intubated, mechanically ventilated, will definitely address weaning and possibly extubation in the next 24 hours. According to the nurses she was earlier following simple instructions, but she was extremely restless and agitated. Progress note dated July 17, 2023. This is a patient who was seen in consultation yesterday. The patient was admitted on July 14, with a ventricular fibrillation arrest. She was intubated on the same day. She went to the catheterization laboratory on July 14, and had stents placed in the right coronary artery, and left anterior descending coronary artery. The patient remains on the ventilator. Ventilator settings include volume assist-control, rate 14, tidal volume 400, FiO2 35%, PEEP of 5. Blood gases show pO2 of 132, pCO2 of 27, and a pH of 7.43. The patient is on saline at 75 cc an hour, propofol at 45 mcg/kg/min, norepinephrine at 2 mcg/min, and vital AF at 10 cc an hour. She has received a total of 2 units of packed red blood cells. Today, we are going to do a daily interruption of sedation and a spontaneous breathing trial, on pressure support of 5 and CPAP of 5. White count 14.3, hemoglobin 6.8, hematocrit 21.3, and platelet count normal. Sodium 140, potassium 3.6, chlorides 116, CO2 16, BUN 14, creatinine 0.96. Glucose 152. Calcium 7.8. Magnesium was 2.0. Blood and sputum sampling thus far is negative. Chest x-ray shows some patchy bibasilar infiltrates. Progress note dated July 18, 2023. This is a patient who was seen in consultation July 16, 2023. The patient was admitted on July 14, with a ventricular fibrillation arrest. She was intubated on the same day. She went to the catheterization laboratory on July 14, and had stents placed in the right coronary artery, and left anterior descending c oronary artery. Yesterday, the patient was given a trial of spontaneous breathing, on pressure support of 5 and CPAP of 5. The patient had excellent weaning parameters, good RSBI, and a positive cuff leak. She was awake and alert, and the patient was extubated, on July 16. Currently, she is on 2 L of oxygen, she is getting saline at 75 cc an hour. Currently, white count 12.7, hemoglobin 7.6, hematocrit 23.7, and platelet count normal. Sodium 141, potassium 3.5, chlorides 119, CO2 20, BUN 15, and creatinine 0.81. Procalcitonin level is 0.54. Calcium is 7.7. Glucose 96. Blood and sputum cultures are thus far negative. Chest x-ray shows some patchy infiltrate at the left base. Progress note dated July 19, 2023. 72-year-old female admitted initially for a cardiopulmonary arrest, secondary to ventricular fibrillation. The patient is seen today in room 358. He is doing well. She is on 2 L of oxygen. The patient is not receiving any IV fluids. The patient continues on Rocephin. Current labs include a white count 9.9, hemoglobin 7.9, hematocrit 25.5, and a normal platelet count. Sodium 138, potassium 4.2, chlorides 117, carbon dioxide 18, anion gap 3, BUN 13, creatinine 0.72. Glucose is 84. Calcium is 8.1. Blood and sputum sampling thus far is negative. Chest x-ray shows a patchy density at the left base. Progress note dated July 20, 2023. 72-year-old female initially admitted with a ventricular fibrillation cardiopulmonary arrest. The patient is seen today in 358. Previously, she was in the intensive care unit, on the ventilator. Currently, she is on 1 L of oxygen, and is getting saline at 20 cc an hour. She had no complaints today. Current labs include a white count 8.8, hemoglobin 8.6, hematocrit 28, platelet count 437,000. Sodium 138, potassium 4.1, chloride 115, CO2 17, BUN 15, creatinine 0.69. Calcium is 8.8. Blood sputum and urine cultures are thus far negative. No recent chest x-ray. Objective - Vital Signs Vital signs: Vital Signs Temp 98.1 F 07/20/23 12:00 Pulse 76 07/20/23 12:21 Resp 17 07/20/23 12:00 BP 169/89 07/20/23 12:00 Pulse Ox 99 07/20/23 12:00 FiO2 30 07/17/23 12:04 Intake & Output 07/19/23 07/20/23 07/20/23 18:59 06:59 18:59 Intake Total 700 Balance 700 Intake: Oral 700 Other: Voiding Method Bedside Commode Bedside Commode Bedpan Bedpan # Voids 1 1 1 ABP, PAP, CO, CI - Last Documented Arterial Blood Pressure 150/54 - Exam No acute distress, extubated, currently on nasal O2 at 1 L. No respiratory distress. HEENT examination is grossly unremarkable. Neck supple. Full range of motion. No adenopathy thyromegaly or neck vein distention. Cardiovascular examination reveals regular rhythm rate. S1-S2 normal. No S3 or S4. No discernible murmur noted. Heart rate 76 bpm. Lungs reveal scattered bilateral rhonchi. No wheezes or crackles. Breath sounds equal. 1 L saturations are 89% Abdomen soft with bowel sounds. No masses or tenderness. Extremities are intact. No cyanosis clubbing or edema. Skin is without rash or lesion. Neurologic examination is brief but nonfocal. - Labs CBC & Chem 7: 07/20/23 09:40 07/20/23 09:40 Labs: Abnormal Lab Results - Last 24 Hours (Table) 07/19/23 07/19/23 07/20/23 Range/Units 06:38 20:12 06:03 RBC (3.80-5.40) m/uL Hgb (11.4-16.0) gm/dL Hct (34.0-46.0) % MCHC (31.0-37.0) g/dL Chloride (98-107) mmol/L Carbon Dioxide (22-30) mmol/L POC Glucose (mg/dL) 112 H 112 H (70-110) mg/dL Iron 10 L (50-170) UG/DL TIBC 225 L (228-460) UG/DL % Saturation 4.44 L (12.00-45.00) Transferrin 161.0 L (204.0-354.0) mg/dL 07/20/23 07/20/23 Range/Units 09:40 09:40 RBC 3.12 L (3.80-5.40) m/uL Hgb 8.6 L (11.4-16.0) gm/dL Hct 28.0 L (34.0-46.0) % MCHC 30.9 L (31.0-37.0) g/dL Chloride 115 H (98-107) mmol/L Carbon Dioxide 17 L (22-30) mmol/L POC Glucose (mg/dL) (70-110) mg/dL Iron (50-170) UG/DL TIBC (228-460) UG/DL % Saturation (12.00-45.00) Transferrin (204.0-354.0) mg/dL Microbiology - Last 24 Hours (Table) 07/18/23 15:20 Urine Culture - Final Urine,Catheterized Assessment and Plan Assessment: S/P cardiopulmonary arrest, July 15, 2023, with intubation and mechanical ventilation on the same day. Acute coronary syndrome, S/P cardiac catheterization on July 14, with stenting of the LAD and RCA. S/P successful extubation, on July 17, 2023. Acute hypoxemic respiratory failure. Anemia. Possible UTI. Paroxysmal atrial fibrillation. History of hypertension. History of gastroesophageal reflux disease. Plan: Plan dated July 17, 2023. The patient sedation will be held, and we will attempt a spontaneous breathing trial. We do make some ventilator settings, dropping the tidal volume from 400 down to 350, and dropping the FiO2 from 35%, down to 30%. Additional recommendations and suggestions are forthcoming. Labs, x-rays, and medications are reviewed. Hopefully, we will be able to move towards weaning and extubation. We will continue to follow make recommendations along the way. Prognosis is certainly guarded. Plan dated July 18, 2023. The patient was successfully extubated yesterday. We continue to watch her in the intensive care unit. She appears much better clinically, and labs, x-rays, and all medications are reviewed. We will continue to follow the patient, make recommendations along the way. She continues on saline at 75 cc an hour. Additional recommendations and suggestions are forthcoming. Prognosis is certainly still very guarded Plan dated July 19, 2023. The patient is seen today in room 358. She is resting comfortably. She continues on oxygen at 2 L. She is not receiving any IV fluids. She continues on Rocephin. Labs, x-rays, and medications are reviewed. The patient's overall prognosis remains guarded. We will continue to follow the patient, make recommendations along the way. No additional comments at this time. Plan dated July 20, 2023. The patient is seen today in room 358. The patient is on 1 L of oxygen. The patient is getting saline at 20 cc an hour. She has no complaints today. She denies any shortness of breath, cough, wheezing, chest tightness, phlegm production, chest pain, chest pressure, palpitations, etc. Labs, x-rays, and medications are reviewed. We will continue to follow the patient, make recommendations along the way. Time with Patient: Less than 30
--- NOTE | 2023-07-20 14:39 | P.PN ---
Subjective Acute coronary syndrome This is a 72-year-old female patient we are asked to see in the emergency room. The patient currently is intubated. The history was taken from the emergency room physician. Apparently the patient had a fall around of this year and since then she has not been very active and she has been in bed. No details around the fall and no details if the patient lost her consciousness or no. She was brought by a family member to the emergency department because she was not feeling well she was feeling weak and tired and also she was experiencing some upper back discomfort felt to be from laying in bed. In the emergency department she underwent a workup including an EKG and that showed atrial fibrillation with diffuse ST segment depression except for ST segment elevation in aVR, finding concerning for global ischemia or triple-vessel coronary artery disease or left main coronary artery disease. Subsequently the patient went into cardiac arrest was ventricular fibrillation and she underwent a shock and she was brought back to normal sinus mechanism with an EKG showing diffuse ST segment depression but no clear-cut evidence of ST segment elevation on the EKG. The chest x-ray showed cardiomegaly. No other information are available at this point including any blood work results including CBC or BMP or any troponin or any creatinine. Currently the patient is intubated. She was given magnesium. She is hemodynamically stable. She was receiving sertraline as an outpatient. Beside that she does not have any history of coronary artery disease or congestive heart failure or any cardiac arrhythmia. Subsequently the patient underwent a CT scan of the brain which showed no acute abnormalities. She underwent a CTA of the chest also and that showed no evidence of pulmonary embolism. the examination revealed regular rhythm with a systolic murmur at the right upper sternal border with clear breathing sounds bilaterally and no edema in the lower extremities was noted. July 16, 2023 The patient was seen this morning. Currently she is intubated with a possible extubation in the next 24 hours according to the intensive care team. Hemodynamically she is stable and not on any vasopressors. Her hemoglobin last night came in to be below 7 and she received 1 unit of packed RBC and the last hemoglobin was above 9. She is on dual antiplatelet therapy along with beta- jose along with a statin. The echo still pending. the patient does not seems to be in any overt heart failure at this point. From the cardiovascular standpoint of view, I would continue the current medical regimen and continue following up with the echocardiogram and continue dual antiplatelet therapy. The examination revealed regular rhythm with a systolic murmur at the right upper sternal border with diminished breathing sounds bilaterally and no edema was noted in the lower extremities. 07/15 Patient seen and examined. Patient was extubated and currently on nasal cannula. She denies any chest pain or pressure. No significant arrhythmias noted on telemetry. Patient did have drop in hemoglobin again to 6.8 however no active bleeding. No significant hematoma noted at the femoral site. Echocardiogram showing EF 65% with moderate to severe mitral regurgitation as well as LVOT gradient. 07/17 Patient is seen today in follow-up on the cardiac stepdown unit. She denies having any shortness of breath no lower extremity edema. She states she has been ambulating in her room without any new symptoms. Patient is maintained on dual antiplatelet therapy along with statin. Blood pressure 168/89, heart rate in the 60s, pulse ox 100% on 2 L nasal cannula. Hemoglobin is 7.9 and iron studies will be ordered. Creatinine 0.72. 07/19 patient seen and examined. Patient still having some reproducible chest pain related to her chest compressions. She denies any significant shortness breath. Remains in sinus rhythm. No significant hematochezia or melena. Her hemoglobin has been stable in the 8 range. Physical Examination Gen: This is a 72-year-old female in no acute distress HEENT: Head is atraumatic, normocephalic. Pupils equal, round. Sclerae is anicteric. LUNGS: Clear to auscultation. No wheezes or rhonchi. No intercostal retractions. HEART: Regular rate and rhythm. Systolic murmur. EXTREMITIES: No pedal edema. No calf tenderness. NEUROLOGICAL: Patient is awake, alert and oriented x3. Assessment Acute coronary syndrome Status post PCI of the LAD and RCA and known chronic total occlusion of the left circumflex Cardiac arrest with ventricular fibrillation Paroxysmal atrial fibrillation and currently she is in normal sinus mechanism moderate to severe mitral regurgitation LVOT gradient Anemia status post blood transfusion Plan Continue the current medical regimen Continue monitor the hemoglobin continue Brilinta however stop aspirin and add Eliquis given PAfib on presenta tion echo findings of LVOT gradient as well as moderate to severe mitral regurgitation concerning for HOCM. Consider outpt MRI Appears stable for DC to rehab Objective - Vital Signs Vital signs: Vital Signs Temp 98.1 F 07/20/23 12:00 Pulse 76 07/20/23 12:21 Resp 17 07/20/23 12:00 BP 169/89 07/20/23 12:00 Pulse Ox 99 07/20/23 12:00 FiO2 30 07/17/23 12:04 Intake & Output 07/19/23 07/20/23 07/20/23 18:59 06:59 18:59 Intake Total 700 Balance 700 Intake: Oral 700 Other: Voiding Method Bedside Commode Bedside Commode Bedpan Bedpan # Voids 1 1 1 ABP, PAP, CO, CI - Last Documented Arterial Blood Pressure 150/54 - Labs CBC & Chem 7: 07/20/23 09:40 07/20/23 09:40 Labs: Abnormal Lab Results - Last 24 Hours (Table) 07/19/23 07/19/23 07/20/23 Range/Units 06:38 20:12 06:03 RBC (3.80-5.40) m/uL Hgb (11.4-16.0) gm/dL Hct (34.0-46.0) % MCHC (31.0-37.0) g/dL Chloride (98-107) mmol/L Carbon Dioxide (22-30) mmol/L POC Glucose (mg/dL) 112 H 112 H (70-110) mg/dL Iron 10 L (50-170) UG/DL TIBC 225 L (228-460) UG/DL % Saturation 4.44 L (12.00-45.00) Transferrin 161.0 L (204.0-354.0) mg/dL 07/20/23 07/20/23 Range/Units 09:40 09:40 RBC 3.12 L (3.80-5.40) m/uL Hgb 8.6 L (11.4-16.0) gm/dL Hct 28.0 L (34.0-46.0) % MCHC 30.9 L (31.0-37.0) g/dL Chloride 115 H (98-107) mmol/L Carbon Dioxide 17 L (22-30) mmol/L POC Glucose (mg/dL) (70-110) mg/dL Iron (50-170) UG/DL TIBC (228-460) UG/DL % Saturation (12.00-45.00) Transferrin (204.0-354.0) mg/dL Microbiology - Last 24 Hours (Table) 07/18/23 15:20 Urine Culture - Final Urine,Catheterized
[2023-07-20 16:40] LABS: Glucose,Whole Blood 105 mg/dL (70-110)
[2023-07-20 20:05] LABS: Glucose,Whole Blood 116 mg/dL (70-110)
[2023-07-20] MEDS: APIXABAN 5 MG TAB PO SCH (20:46)
--- NOTE | 2023-07-20 20:49 | P.PN ---
Subjective Progress Note Date: 07/20/23 07/17/2023 Patient evaluated today in the intensive care unit. Remains intubated and sedated. Status post cardiac catheterization with stenting performed to the LAD and RCA. Remains on dual antiplatelet therapy with aspirin and brilinta. Currently receiving IV propofol. Labs today reveal hemoglobin of 6.8, wbc 14.3. Renal function WNL. Chest xray today reveals patchy bibasilar opacities appear to be slightly increased particularly in the retrocardiac region. 07/18/2023 Patient is evaluated in follow up today in the intensive care unit. Patient was successfully extubated yesterday and currently requiring 2 L of oxygen. Patients main complaint today is shortness of breath and difficulty with deep inspiration she is also complaining of cough which is bronchospastic. Chest xray today reveals increasing patchy infiltrate at the left base. WBC is 12.7, hgb 7.6, renal function remains WNL. Procalcitonin is elevated at 0.54. Continues on IV ceftriaxone. 07/19/2023 Patient evaluated today on the medical floor was downgraded from the ICU. Remains on 2L of oxygen. Less short of breath. Continues to report mild chest wall pain secondary to CPR. Urine culture, blood cultures and sputum culture are negative. Patient will complete 5 days of IV ceftriaxone. 07/20/2023 Patient is evaluated today in follow up. Continues on 2L of oxygen. Patient does report improved shortness of breath. Needs encouragement to get out of bed and to either the RR or bedside commode. Has been requested the bedpan. Completed IV antibiotic therapy for suspected UTI. Hemoglobin stable at 8.6. Review of Systems Constitutional: Denied any fatigue denied any fever. Cardio vascular: denied any chest pain, palpitations Gastrointestinal: denied any nausea, vomiting, diarrhea Pulmonary: Reports shortness of breath and cough. Neurologic denied any new focal deficits All inpatient medications were reviewed and appropriate changes in these medications as dictated in the interval history and assessment and plan. PHYSICAL EXAMINATION: GENERAL: The patient is alert and oriented x3, not in any acute distress. Well developed, well nourished. HEENT: Pupils are round and equally reacting to light. EOMI. No scleral icterus. No conjunctival pallor. Normocephalic, atraumatic. No pharyngeal erythema. No thyromegaly. CARDIOVASCULAR: S1 and S2 present. No murmurs, rubs, or gallops. PULMONARY: Chest is clear to auscultation, no wheezing or crackles. lungs are diminished. ABDOMEN: Soft, nontender, nondistended, normoactive bowel sounds. No palpable organomegaly. MUSCULOSKELETAL: No joint swelling or deformity. EXTREMITIES: No cyanosis, clubbing, or pedal edema. NEUROLOGICAL: Gross neurological examination did not reveal any focal deficits. SKIN: No rashes. Assessment and plan Cardiac arrest/V-fib/Torsades Acute coronary syndrome Status post PCI of the LAD and RCA and known chronic total occlusion of the left circumflex Paroxysmal atrial fibrillation and currently is in normal sinus mechanism Acute hypoxic respiratory failure Anemia r/o iron deficiency hgb improved s/p 1 unit of prbc. Hypokalemia normalized. Leukocytosis possibly reactive Abnormal urinalysis urine culture pending continue on IV ceftriaxone for now. Hx of hypertension Gastroesophageal reflux disease hx. GI prophylaxis DVT prophylaxis mechanical prophylaxis due to the anemia. Full Code Plan Continue telemetry monitoring S/p cardiac cath with Successful stenting of proximal LAD, Successful stenting of the mid RCA Continue aspirin, Brilinta Continue IV Rocephin procalcitonin level mildly elevated, ceftriaxone can be d iscontinued patient has completed course of antibiotic therapy. Tessalon, robitussin added for the cough Continue incentive spirometer Continue Lipitor Continue breathing treatments Started on IV iron while inpatient Cardiology, pulmonary curriculum and instruction director following. PT/OT consultation recommending subacute rehab and patient is pending insurance authorization Repeat labs in AM Possible D/C in the next 24 hours The impression and plan of care has been dictated by Mary Herron, Nurse Practitioner as directed. Dr. Sheyla MD I have performed a history and physical examination and medical decision making of this patient, discussed the same with the dictator, and agree with the dictators assessment and plan as written, documented as a scribe. Based on total visit time, I have performed more than 50% of this visit. Objective - Vital Signs Vital signs: Vital Signs Temp 98.1 F 07/20/23 12:00 Pulse 76 07/20/23 12:21 Resp 17 07/20/23 12:00 BP 169/89 07/20/23 12:00 Pulse Ox 99 07/20/23 12:00 FiO2 30 07/17/23 12:04 Intake & Output 07/19/23 07/20/23 07/20/23 18:59 06:59 18:59 Intake Total 700 Balance 700 Intake: Oral 700 Other: Voiding Method Bedside Commode Bedside Commode Bedpan Bedpan # Voids 1 1 1 ABP, PAP, CO, CI - Last Documented Arterial Blood Pressure 150/54 - Labs CBC & Chem 7: 07/20/23 09:40 07/20/23 09:40 Labs: Abnormal Lab Results - Last 24 Hours (Table) 07/19/23 07/19/23 07/20/23 Range/Units 06:38 20:12 06:03 RBC (3.80-5.40) m/uL Hgb (11.4-16.0) gm/dL Hct (34.0-46.0) % MCHC (31.0-37.0) g/dL Chloride (98-107) mmol/L Carbon Dioxide (22-30) mmol/L POC Glucose (mg/dL) 112 H 112 H (70-110) mg/dL Iron 10 L (50-170) UG/DL TIBC 225 L (228-460) UG/DL % Saturation 4.44 L (12.00-45.00) Transferrin 161.0 L (204.0-354.0) mg/dL 07/20/23 07/20/23 Range/Units 09:40 09:40 RBC 3.12 L (3.80-5.40) m/uL Hgb 8.6 L (11.4-16.0) gm/dL Hct 28.0 L (34.0-46.0) % MCHC 30.9 L (31.0-37.0) g/dL Chloride 115 H (98-107) mmol/L Carbon Dioxide 17 L (22-30) mmol/L POC Glucose (mg/dL) (70-110) mg/dL Iron (50-170) UG/DL TIBC (228-460) UG/DL % Saturation (12.00-45.00) Transferrin (204.0-354.0) mg/dL Microbiology - Last 24 Hours (Table) 07/18/23 15:20 Urine Culture - Final Urine,Catheterized Assessment and Plan Time with Patient: Less than 30
[2023-07-21 06:31] LABS: Glucose,Whole Blood 101 mg/dL (70-110)
[2023-07-21 06:38] VITALS: TEMP 98.1
--- NOTE | 2023-07-21 09:25 | P.DS ---
Providers Date of admission: 07/15/23 18:32 Attending physician: Philip Villatoro Consults: 07/15/23 18:32 Consult Physician Stat Consulting Provider: Blanca Brian Consult Reason/Comments: vfib arrest Do you want consulting provider notified?: Already Contacted 07/15/23 19:08 Consult Physician Stat Consulting Provider: Michael Ruiz Consult Reason/Comments: vfib arrest Do you want consulting provider notified?: Already Contacted 07/15/23 22:38 Consult Physician Routine Consulting Provider: [facility] Consult Reason/Comments: Post Interventional Patient Do you want consulting provider notified?: Already Contacted Primary care physician: Becky Stone Hospital Course: Final Diagnosis Cardiac arrest/V-fib/Torsades Acute coronary syndrome Status post PCI of the LAD and RCA and known chronic total occlusion of the left circumflex Paroxysmal atrial fibrillation and currently is in normal sinus mechanism Acute hypoxic respiratory failure has been weaned to room air Anemia, iron deficiency hgb improved s/p 1 unit of prbc. Hypokalemia normalized. Leukocytosis possibly reactive Acute UTI without sepsis, urine culture negative this was POA. Completed course of antibiotics. Hx of hypertension Gastroesophageal reflux disease hx. Full Code Discharge Disposition Patient is stable for discharge to subacute rehab. She will be discharged on Eliquis and Brilinta as she did have episodes of proximal atrial fibrillation prior to the cardiac arrest. Patient may require a cardiac MRI outpatient for further evaluation per cardiology. Patient requires close follow-up with her [facility] on discharge in 1 to 2 weeks. Patient to also follow-up with the business writer in 1 week. Patient was also found to have iron deficient anemia and received IV iron while in the hospital we will recommend a course of oral iron on discharge. Patient should continue bowel regimen as this medication can be constipating. Recommend to repeat blood work with a CBC and BMP in 2 to 3 days outpatient. Patient will follow-up close with her primary care provider Dr. Becky Stone. Hemodynamically she is stable. Hospital Course This is a 72-year-old female with past medical history significant for peptic ulcer disease, anemia who initially presented to ER for complaint of generalized weakness. Apparently patient had a fall in the beginning of this year and ever since then she has not been very active. Patient had a fall couple of weeks ago and she was unable to get up from the floor, later her son checked on him and told her to come to the ER but he refused. Following that patient continues to complain of back pain and was not feeling good. Patient was convinced by family to come to the ER today. In the ER, EKG done showed patient to have A-fib with diffuse ST segment depression. Patient went into cardiac arrest in the ER, patient was found to be in V-fib and later was shocked and brought back to rhythm. Patient was intubated. CT of the brain done showed no acute abnormalities. CTA of the chest done showed no evidence of PE. Cardiology were consulted and patient went for emergent cardiac cath and underwent Successful stenting of proximal LAD, Successful stenting of the mid RCA. Patient was transferred to ICU and monitored closely. She has been started on dual antiplatelet therapy with aspirin and brilinta, continued on statin therapy. Patient was successfully extubated and has been weaned down to 2L of oxygen. She does continue to report significant chest discomfort musculoskeletal nature secondary to receiving CPR but this is improving and managed with oral pain med ication. Was transferred out of the ICU monitor closely on the medical floor. She has no acute episodes of chest pain and shortness of breath has significantly improved patient was coughing postextubation. She was also treated empirically with IV ceftriaxone for suspected mild urinary tract infection and has completed 5 days of antibiotic therapy and will require no further antibiotics on discharge. After reevaluation by cardiology patient was felt to be in a paroxysmal atrial fibrillation prior to cardiac arrest and will be started on Eliquis with Brilinta on discharge and discontinue the aspirin. Echocardiogram reveals systolic function of 70 to 75% with basal septal hypertrophy with an LVOT gradient of about 33 mmHg. There is moderate to severe mitral vegetation with posteriorly directed jet with possible systolic anterior motion of anterior mitral leaflet. Cardiology recommending a possible cardiac MRI as done outpatient. Patient was evaluated physical therapy as she was not active during this hospital stay and has been primarily bedrest. She is recommended to discharge to subacute rehab and has received authorization for discharge today. She has no complaints of chest discomfort no shortness of breath no nausea vomiting or diarrhea alert x 3 with no focal neurological deficits. Her lungs are clear S1-S2 auscultated abdomen is soft and nontender. Please see medication reconciliation for a list of current medications. Thank you for allowing us to participate in the care of this patient. The impression and plan of care has been dictated by Mary Herron, Nurse Practitioner as directed. Dr. Sheyla MD I have performed a history and physical examination and medical decision making of this patient, discussed the same with the dictator, and agree with the dictators assessment and plan as written, documented as a scribe. Based on total visit time, I have performed more than 50% of this visit. Patient Condition at Discharge: Fair Plan - Discharge Summary Discharge Rx Participant: No New Discharge Prescriptions: No Action Metoprolol Succinate (ER) [Toprol Xl] 25 mg PO DAILY Sertraline [Zoloft] 50 mg PO DAILY Cyclobenzaprine [Flexeril] 5 mg PO TID PRN PRN Reason: Muscle Spasm Discharge Medication List Cyclobenzaprine [Flexeril] 5 mg PO TID PRN 07/15/23 [History] Metoprolol Succinate (ER) [Toprol Xl] 25 mg PO DAILY 07/15/23 [History] Sertraline [Zoloft] 50 mg PO DAILY 07/15/23 [History] Follow up Appointment(s)/Referral(s): None,Stated [REFERRING] - 1-2 days
[2023-07-21 11:25] LABS: Glucose,Whole Blood 107 mg/dL (70-110)
--- NOTE | 2023-07-21 12:34 | P.PN ---
Subjective Progress Note Date: 07/21/23 Principal diagnosis: Respiratory failure. This is a 72-year-old female known history of hypertension, GERD, presented to the ER yesterday with a chief complaint of not feeling well. Patient fell around Easter time, and since then she has not been active, mostly in bed, bedbound. Yesterday, the patient was brought in by a family member to the emergency room complaining of not feeling well, feeling weak and tired. In the emergency room, patient was found to be in atrial fibrillation with diffuse ST segment depression except for ST segment elevation in aVR, and cardiology was consulted. Cardiology suspected global ischemia or triple-vessel coronary artery disease. While in the ER, the patient had a nuclear fibrillation cardiac arrest. Patient became hypotensive, and according to the ER physician she had a torsades rhytm, patient had CPR for about 5 minutes with return of spontaneous circulation. In the meantime the patient was intubated, mechanically ventilated , she was given magnesium. And she was noted to become more hemodynamically stable. Patient had a CT angiogram of the chest showed showed no evidence of pulmonary embolism, CT of the brain showed no evidence of acute process. Plan the patient was seen by cardiology and she underwent cardiac catheterization. Underwent successful stenting of the proximal LAD successful stenting of the mid RCA attempted to balloon angioplasty of the left circumflex coronary artery. Patient was further stabilized in the cardiac Studio [facility], and she was transferred later to the ICU. I was made aware of this patient last night, and I was made aware of her ventilator settings and ABG. And these were adjusted accordingly. I am seeing this patient this morning she is on assist-control rate of 16 tidal volume 400 FiO2 45% and PEEP of 5 ABG showed a pO2 of 118 pCO2 28 pH of 7.37. Hence her assist-control rate was cut down to 14 FiO2 cut down to 35%. Patient had low hemoglobin earlier this morning and she received a unit of packed RBCs for a hemoglobin of 6.2 and it is now 9.2. Patient is on propofol at 45 mcg/kg/min IV fluid 0.9 normal saline at 75 cc/h. Patient is receiving Dilaudid and Protonix. And she is also on dual therapy/antiplatelet therapy since she had stent placement. During my evaluation, nurses were concerned about no access in this patient she had 2 small peripheral lines and could not establish any more IV access. Hence I went ahead and placed a right IJ triple-lumen catheter and placed a left femoral arterial line. Orders were placed on the chart, and the plan is to keep the patient intubated, mechanically ventilated, will definitely address weaning and possibly extubation in the next 24 hours. According to the nurses she was earlier following simple instructions, but she was extremely restless and agitated. Progress note dated July 17, 2023. This is a patient who was seen in consultation yesterday. The patient was admitted on July 14, with a ventricular fibrillation arrest. She was intubated on the same day. She went to the catheterization laboratory on July 14, and had stents placed in the right coronary artery, and left anterior descending coronary artery. The patient remains on the ventilator. Ventilator settings include volume assist-control, rate 14, tidal volume 400, FiO2 35%, PEEP of 5. Blood gases show pO2 of 132, pCO2 of 27, and a pH of 7.43. The patient is on saline at 75 cc an hour, propofol at 45 mcg/kg/min, norepinephrine at 2 mcg/min, and vital AF at 10 cc an hour. She has received a total of 2 units of packed red blood cells. Today, we are going to do a daily interruption of sedation and a spontaneous breathing trial, on pressure support of 5 and CPAP of 5. White count 14.3, hemoglobin 6.8, hematocrit 21.3, and platelet count normal. Sodium 140, potassium 3.6, chlorides 116, CO2 16, BUN 14, creatinine 0.96. Glucose 152. Calcium 7.8. Magnesium was 2.0. Blood and sputum sampling thus far is negative. Chest x-ray shows some patchy bibasilar infiltrates. Progress note dated July 18, 2023. This is a patient who was seen in consultation July 16, 2023. The patient was admitted on July 14, with a ventricular fibrillation arrest. She was intubated on the same day. She went to the catheterization laboratory on July 14, and had stents placed in the right coronary artery, and left anterior descending c oronary artery. Yesterday, the patient was given a trial of spontaneous breathing, on pressure support of 5 and CPAP of 5. The patient had excellent weaning parameters, good RSBI, and a positive cuff leak. She was awake and alert, and the patient was extubated, on July 16. Currently, she is on 2 L of oxygen, she is getting saline at 75 cc an hour. Currently, white count 12.7, hemoglobin 7.6, hematocrit 23.7, and platelet count normal. Sodium 141, potassium 3.5, chlorides 119, CO2 20, BUN 15, and creatinine 0.81. Procalcitonin level is 0.54. Calcium is 7.7. Glucose 96. Blood and sputum cultures are thus far negative. Chest x-ray shows some patchy infiltrate at the left base. Progress note dated July 19, 2023. 72-year-old female admitted initially for a cardiopulmonary arrest, secondary to ventricular fibrillation. The patient is seen today in room 358. He is doing well. She is on 2 L of oxygen. The patient is not receiving any IV fluids. The patient continues on Rocephin. Current labs include a white count 9.9, hemoglobin 7.9, hematocrit 25.5, and a normal platelet count. Sodium 138, potassium 4.2, chlorides 117, carbon dioxide 18, anion gap 3, BUN 13, creatinine 0.72. Glucose is 84. Calcium is 8.1. Blood and sputum sampling thus far is negative. Chest x-ray shows a patchy density at the left base. Progress note dated July 20, 2023. 72-year-old female initially admitted with a ventricular fibrillation cardiopulmonary arrest. The patient is seen today in 358. Previously, she was in the intensive care unit, on the ventilator. Currently, she is on 1 L of oxygen, and is getting saline at 20 cc an hour. She had no complaints today. Current labs include a white count 8.8, hemoglobin 8.6, hematocrit 28, platelet count 437,000. Sodium 138, potassium 4.1, chloride 115, CO2 17, BUN 15, creatinine 0.69. Calcium is 8.8. Blood sputum and urine cultures are thus far negative. No recent chest x-ray. Progress note dated July 21, 2023. 72-year-old female initially admitted with a diagnosis of ventricular fibrillation cardiopulmonary arrest. The patient is seen in room 358. Clinically, she appears to be relatively stable. She is on room air. She is receiving saline at 20 cc an hour. She has no specific complaints today. She is lying flat in bed, without any distress whatsoever. Current laboratory data includes a glucose of 107. Objective - Vital Signs Vital signs: Vital Signs Temp 98.1 F 07/21/23 08:00 Pulse 72 07/21/23 12:02 Resp 18 07/21/23 11:44 BP 177/77 07/21/23 11:44 Pulse Ox 98 07/21/23 11:44 FiO2 30 07/17/23 12:04 Intake & Output 07/20/23 07/21/23 07/21/23 18:59 06:59 18:59 Intake Total 240 Balance 240 Intake: Oral 240 Other: Voiding Method Bedside Commode Bedside Commode Bedside Commode Bedpan Bedpan Bedpan # Voids 1 1 2 ABP, PAP, CO, CI - Last Documented Arterial Blood Pressure 150/54 - Exam No acute distress, extubated, currently on room air. No respiratory distress. HEENT examination is grossly unremarkable. Neck supple. Full range of motion. No adenopathy thyromegaly or neck vein distention. Cardiovascular examination reveals regular rhythm rate. S1-S2 normal. No S3 or S4. No discernible murmur noted. Heart rate 72 bpm. Lungs reveal scattered bilateral rhonchi. No wheezes or crackles. Breath sounds equal. Room air saturation is 98%. Abdomen soft with bowel sounds. No masses or tenderness. Extremities are intact. No cyanosis clubbing or edema. Skin is without rash or lesion. Neurologic examination is brief but nonfocal. - Labs CBC & Chem 7: 07/20/23 09:40 07/20/23 09:40 Labs: Abnormal Lab Results - Last 24 Hours (Table) 07/20/23 Range/Units 20:03 POC Glucose (mg/dL) 116 H (70-110) mg/dL Microbiology - Last 24 Hours (Table) 07/15/23 18:56 Blood Culture - Final Blood 07/15/23 18:40 Blood Culture - Final Blood Assessment and Plan Assessment: S/P cardiopulmonary arrest, July 15, 2023, with intubation and mechanical ventilation on the same day. Acute coronary syndrome, S/P cardiac catheterization on July 14, with stenting of the LAD and RCA. S/P successful extubation, on July 17, 2023. Acute hypoxemic respiratory failure. Anemia. Possible UTI. Paroxysmal atrial fibrillation. History of hypertension. History of gastroesophageal reflux disease. Plan: Plan dated July 17, 2023. The patient sedation will be held, and we will attempt a spontaneous breathing trial. We do make some ventilator settings, dropping the tidal volume from 400 down to 350, and dropping the FiO2 from 35%, down to 30%. Additional recommendations and suggestions are forthcoming. Labs, x-rays, and medications are reviewed. Hopefully, we will be able to move towards weaning and extubation. We will continue to follow make recommendations along the way. Prognosis is certainly guarded. Plan dated July 18, 2023. The patient was successfully extubated yesterday. We continue to watch her in the intensive care unit. She appears much better clinically, and labs, x-rays, and all medications are reviewed. We will continue to follow the patient, make recommendations along the way. She continues on saline at 75 cc an hour. Additional recommendations and suggestions are forthcoming. Prognosis is certainly still very guarded Plan dated July 19, 2023. The patient is seen today in room 358. She is resting comfortably. She continues on oxygen at 2 L. She is not receiving any IV fluids. She continues on Rocephin. Labs, x-rays, and medications are reviewed. The patient's overall prognosis remains guarded. We will continue to follow the patient, make recommendations along the way. No additional comments at this time. Plan dated July 20, 2023. The patient is seen today in room 358. The patient is on 1 L of oxygen. The patient is getting saline at 20 cc an hour. She has no complaints today. She denies any shortness of breath, cough, wheezing, chest tightness, phlegm production, chest pain, chest pressure, palpitations, etc. Labs, x-rays, and medications are reviewed. We will continue to follow the patient, make recommendations along the way. Plan dated July 21, 2023. The patient is seen in room 358. The patient is currently on room air. The patient is getting saline at 20 cc an hour. She is lying flat in bed. She has no complaints. She denies any chest pain or chest discomfort. She denies any palpitations. She also denies any shortness of breath, cough, wheezing, chest tightness, or phlegm production. Labs, x-rays, and medications are reviewed. We will continue to follow patient, make recommendations where appropriate. Time with Patient: Less than 30
--- NOTE | 2023-07-21 13:06 | CDI ---
Documentation Clarification Form Date: 07/21/2023 12:54:59 PM From: Carmen Giang RN, CCDS Phone: [phone] Admit Date: 07/15/2023 06:32:00 PM Patient Name: Jaimee Reyes Visit Number: [id number] Discharge Date: ATTENTION: The Clinical Documentation Specialists (CDI) and [facility] Coding Staff appreciate your assistance in clarifying documentation. Please respond to the clarification below the line at the bottom and electronically sign. The CDI & [facility] Coding staff will review the response and follow-up if needed. Please note: Queries are made part of the Legal Health Record. If you have any questions, please contact the author of this message via ITS. Dr. Sotero Underwood Acute coronary syndrome is documented throughout Cardiology consult and progress notes. Additional clarification regarding the cause of acute coronary syndrome is requested. History/Risk Factors: GERD/Reflux, Hypertension Clinical Indicators 72-year-old female seen in ED EKG and that showed atrial fibrillation with diffuse ST segment depression except for ST segment elevation in aVR, finding concerning for global ischemia or triple-vessel coronary artery disease or left main coronary artery disease. She went into cardiac arrest was ventricular fibrillation and she underwent a shock and she was brought back to normal sinus mechanism. 07/14 VS: 126/97 104 96% RA 07/14 Labs: WBC 8.1 HGB 7.2 D-Dimer 1.97, Na+ 133, Lactic 3.6, 3.7, Troponin 0.079 07/14 Cardiology consult and ongoing progress note: Acute coronary syndrome. Cardiac arrest with ventricular fibrillation. Paroxysmal atrial fibrillation 07/14 CTA of the chest also and that showed no evidence of pulmonary embolism. 07/14 Cardiac Cath results: Severe disease involving the proximal LAD. I did perform successful stenting of the LAD chronic total occlusion of the proximal left circumflex coronary artery Severe disease involving the mid right coronary artery. I did perform successful stenting of the RCA Elevated left-sided filling pressure with LVEDP at 20 mmHg 07/15 ECHO: Left ventricular ejection fraction is estimated at 70-75 % Treatment: ICU/Telemetry monitoring 07/14 Mechanical ventilation/monitoring per pulmonary 07/14 Left heart catheterization PTCA stent proximal LAD, mid RCA Lipitor 80 MG PO HS 07/15-07/19 Eliquis 5 MG PO BID 4/ Lopressor 25 MG PO BID Brilinta 90MG PO BID Please clarify the cause and etiology of Acute coronary syndrome if known: [ ] Other, please specify [ ] Unable to determine (Template Last Revised: May 2020) MTDD
[2023-07-21 15:43] VITALS: BP 173/63; PULSE 77; RESP 16
== END 2023-07-21 16:00 | DRG 321 ==
LOC: EC 15:28 → 2SICU 18:32 → 3SCARD 07-18 15:54
PROVIDERS: ADMIT Hospitalist; ATTEND Hospitalist
PROC: 4A023N7 Measurement of Cardiac Sampling and Pressure, Left Heart, Percutaneous Approach (ICD-10-PCS; 2023-07-15)
PROC: B2111ZZ Fluoroscopy of Multiple Coronary Arteries using Low Osmolar Contrast (ICD-10-PCS; 2023-07-15)
PROC: B41F1ZZ Fluoroscopy of Right Lower Extremity Arteries using Low Osmolar Contrast (ICD-10-PCS; 2023-07-15)
PROC: 4A033BC Measurement of Arterial Pressure, Coronary, Percutaneous Approach (ICD-10-PCS; 2023-07-15)
PROC: B241ZZ3 Ultrasonography of Multiple Coronary Arteries, Intravascular (ICD-10-PCS; 2023-07-15)
PROC: 027135Z Dilation of Coronary Artery, Two Arteries with Two Drug-eluting Intraluminal Devices, Percutaneous Approach (ICD-10-PCS; principal; 2023-07-15 20:30)
PROC: 02703ZZ Dilation of Coronary Artery, One Artery, Percutaneous Approach (ICD-10-PCS; 2023-07-15 20:30)
PROC: 5A12012 Performance of Cardiac Output, Single, Manual (ICD-10-PCS; 2023-07-15 20:30)
PROC: 3E033XZ Introduction of Vasopressor into Peripheral Vein, Percutaneous Approach (ICD-10-PCS; 2023-07-15 20:30)
PROC: 0BH18EZ Insertion of Endotracheal Airway into Trachea, Via Natural or Artificial Opening Endoscopic (ICD-10-PCS; 2023-07-15 20:30)
PROC: 5A1935Z Respiratory Ventilation, Less than 24 Consecutive Hours (ICD-10-PCS; 2023-07-15 20:30)
PROC: 5A2204Z Restoration of Cardiac Rhythm, Single (ICD-10-PCS; 2023-07-15 20:30)
PROC: 04HY32Z Insertion of Monitoring Device into Lower Artery, Percutaneous Approach (ICD-10-PCS; 2023-07-16)
PROC: 4A133B1 Monitoring of Arterial Pressure, Peripheral, Percutaneous Approach (ICD-10-PCS; 2023-07-16)
PROC: 4A133J1 Monitoring of Arterial Pulse, Peripheral, Percutaneous Approach (ICD-10-PCS; 2023-07-16)
PROC: 02HV33Z Insertion of Infusion Device into Superior Vena Cava, Percutaneous Approach (ICD-10-PCS; 2023-07-16)
PROC: 30233N1 Transfusion of Nonautologous Red Blood Cells into Peripheral Vein, Percutaneous Approach (ICD-10-PCS; 2023-07-16)
DX: I25.119 Atherosclerotic heart disease of native coronary artery with unspecified angina pectoris (principal); I33.0 Acute and subacute infective endocarditis; I49.01 Ventricular fibrillation; J96.01 Acute respiratory failure with hypoxia; I46.2 Cardiac arrest due to underlying cardiac condition; I47.21 Torsades de pointes; N39.0 Urinary tract infection, site not specified; I48.0 Paroxysmal atrial fibrillation; I95.9 Hypotension, unspecified; I25.82 Chronic total occlusion of coronary artery; I11.9 Hypertensive heart disease without heart failure; I34.0 Nonrheumatic mitral (valve) insufficiency; D50.9 Iron deficiency anemia, unspecified; K21.9 Gastro-esophageal reflux disease without esophagitis; E78.5 Hyperlipidemia, unspecified; E87.6 Hypokalemia; Z79.899 Other long term (current) drug therapy; Z11.52 Encounter for screening for COVID-19; Z91.81 History of falling; Z98.61 Coronary angioplasty status
CPT/HCPCS: 31500; 36415; 36600; 70450; 71045; 71275; 76937; 80048; 80053; 81001; 82550; 82565; 82728; 82805; 83036; 83540; 83550; 83605; 83735; 83880; 84132; 84145; 84443; 84484; 85025; 85027; 85379; 85610; 85730; 86850; 86900; 86901; 86920; 87040; 87070; 87086; 87205; 87636; 92950; 92978; 92979; 93005; 93306; 93458; 93799; 94002; 94003; 94640; 94760; 96365; 96366; 96368; 96375; 99291